=== PATIENT | male | born 1945 | race Caucasian/White ===

== ENCOUNTER 2016-07-25 12:55 | Emergency (ER) | payer BC, MEDICARE ==
[2016-07-25 15:51] VITALS: BP 121/66
[2016-07-25] MEDS ORDERED: Sodium Chloride 0.9% 10 ML Syringe FLUSH PRN (15:58)
--- NOTE | 2016-07-25 15:58 | EDM.PDOC ---
ED HPI GENERAL MEDICAL PROBLEM - General Chief Complaint: Skin Complaint Stated Complaint: NECK PAIN Time Seen by Provider: 07/25/16 15:58 Source of Information: Reports: Patient, RN, RN Notes Reviewed History Limitations: Reports: No Limitations - History of Present Illness INITIAL COMMENTS - FREE TEXT/NARRATIVE: Patient has a painful sore area on the back of his right occipital scalp getting progressively worse over the past 3 to 4 days. Denies fever or chills. He has a small amount of drainage on his pillow this morning. Posterior Neck Pain Score (Numeric/FACES): 7 - Related Data Allergies Allergy/AdvReac Type Severity Reaction Status Date / Time acetaminophen Allergy Nausea Verified 04/07/16 13:32 [From Tylenol-Codeine #3] codeine phosphate Allergy Nausea Verified 04/07/16 13:32 [From Tylenol-Codeine #3] lansoprazole [From Prevacid] Allergy Cannot Verified 04/07/16 13:32 Remember Home Meds: Home Meds metFORMIN [Glucophage XR] 1,000 mg PO BIDMEALS 12/01/15 [History] Tamsulosin [Flomax] 1 tab PO BEDTIME 12/03/15 [History] Lisinopril [Prinivil] 5 mg PO DAILY 01/27/16 [History] Loratadine 10 mg PO DAILY 04/07/16 [History] Omeprazole 20 mg PO DAILY 04/07/16 [History] Past Medical History HEENT History: Reports: Hard of Hearing, Impaired Vision Other HEENT History: wears glasses Cardiovascular History: Reports: Afib, Blood Clots/VTE/DVT, High Cholesterol, Hypertension Respiratory History: Reports: None Gastrointestinal History: Reports: Pancreatitis, PUD, Other (See Below) Other Gastrointestinal History: ALCOHOLIC LIVER DISEASE Genitourinary History: Reports: BPH, Retention, Urinary Other Genitourinary History: urinary frequency during the night Musculoskeletal History: Reports: None, Amputation, Fracture, Other (See Below) Other Musculoskeletal History: skull fracture repaired Neurological History: Reports: CVA Psychiatric History: Reports: Other (See Below) Other Psychiatric History: CHRONIC ALCOHOLISM Endocrine/Metabolic History: Reports: Diabetes, Type II Other Endocrine/Metabolic History: diabetic ulcer and cellulitis right great toe Hematologic History: Reports: Other (See Below) Other Hematologic History: MRSA Immunologic History: Reports: None Oncologic (Cancer) History: Reports: None Dermatologic History: Reports: Other (See Below) Other Dermatologic History: CYST REMOVAL - VOICE BOX - Infectious Disease History Infectious Disease History: Reports: Chicken Pox, Measles, Mumps - Past Surgical History Head Surgeries/Procedures: Reports: Craniotomy Cardiovascular Surgical History: Reports: Vascular Surgery Social & Family History - Family History Family Medical History: Noncontributory - Tobacco Use Smoking Status *Q: Never Smoker Years of Tobacco use: 15 Second Hand Smoke Exposure: No - Caffeine Use Caffeine Use: Reports: None - Alcohol Use Days Per Week of Alcohol Use: 7 Number of Drinks Per Day: 4 Total Drinks Per Week: 28 - Recreational Drug Use Recreational Drug Use: Yes Drug Use in Last 12 Months: Yes Recreational Drug Type: Reports: Marijuana/Hashish Other Recreational Drug Type: marjuana use about 4-5 times a week. - Living Situation & Occupation Living situation: Reports: Alone Occupation: Employed ED ROS GENERAL - Review of Systems Review Of Systems: ROS reveals no pertinent complaints other than HPI. ED EXAM, SKIN/RASH Exam: See Below Exam Limited By: No Limitations General Appearance: Alert, WD/WN, No Apparent Distress Eye Exam: Bilateral Eye: Normal Inspection Ears: Normal External Exam Nose: Normal Inspection Throat/Mouth: Normal Inspection Head: Atraumatic, Normocephalic Neck: Normal Inspection, Supple, Non-Tender, Full Range of Motion. No: Lymphadenopathy (L), Lymphadenopathy (R) Respiratory/Chest: No Respiratory Distress, Normal Breath Sounds Cardiovascular: Regular Rate, Rhythm Neurological: Alert, Oriented, CN II-XII Intact, Normal Cognition, Normal Gait, No Motor/Sensory Deficits Psychiatric: Anxious Skin: Erythema (6cm x 5cm erythematous flucutant and acutely tender area with central eschar and small amount of dried purulent yellow material.) Location, Skin: Head ED SKIN PROCEDURES - I&D Site: right occipital scalp Skin prep: Chlorhexidine (Hibiciens), Saline, Sterile Drape Local anesthesia: Lidocaine: 1% Plain Local Anesthetic Volume: Other (10cc) Area Incised With: 11 Blade Drainage: Purulent, Moderate Amount Probed to Break Up Loculations: Yes Packed With: 1/4 in. Iodoform Sterile Dressinx4(s) Complications: No Course - Vital Signs Last Recorded V/S: Last Vital Signs Temp 36.8 C 07/25/16 15:50 Pulse 68 07/25/16 15:50 Resp 18 06/03/17 15:50 BP 121/66 07/25/16 15:50 Pulse Ox 97 07/25/16 15:50 - Orders/Labs/Meds Orders: Active Orders 24 hr Category Date Time Status Peripheral IV Care [RC] . DIRECTED Care 07/25/16 15:58 Active Sodium Chloride 0.9% [Saline Flush] Med 07/25/16 15:58 Active 10 ml FLUSH ASDIRECTED PRN Peripheral IV Insertion Adult [OM.PC] Stat Oth 07/25/16 15:58 Ordered Medication Orders Sodium Chloride (Saline Flush) 10 ml FLUSH ASDIRECTED PRN PRN Reason: Keep Vein Open Last Admin: 07/25/16 16:19 Dose: 10 ml Labs: Laboratory Tests 07/25/16 07/25/16 Range/Units 16:18 16:18 WBC 14.0 H (5.0-10.0) 10^3/uL RBC 4.68 (4.6-6.2) 10^6/uL Hgb 14.9 (14.0-18.0) g/dL Hct 44.5 (40.0-54.0) % MCV 95.1 (80-100) fL MCH 31.8 (27.0-34.0) pg MCHC 33.5 (33.0-35.0) g/dL Plt Count 156 (150-450) 10^3/uL Neut % (Auto) 67.1 (42.2-75.2) % Lymph % (Auto) 17.0 L (20.5-50.1) % [place] % (Auto) 14.0 H (2-8) % Eos % (Auto) 1.3 (1.0-3.0) % Baso % (Auto) 0.6 (0.0-1.0) % C-Reactive Protein 3.1 H (0.0-1.3) mg/dL Meds: Medications Generic Name Dose Route Start Last Admin Trade Name Freq PRN Reason Stop Dose Admin Sodium Chloride 10 ml 07/25/16 15:58 07/25/16 16:19 Saline Flush FLUSH 10 ml ASDIRECTED PRN Administration Keep Vein Open Discontinued Medications Generic Name Dose Route Start Last Admin Trade Name Freq PRN Reason Stop Dose Admin Bacitracin 1 dose 07/25/16 16:04 07/25/16 16:19 Bacitracin Oint 1 Gm TOP 07/25/16 16:05 1 dose ONETIME ONE Administration Diphenhydramine HCl 12.5 mg 07/25/16 16:04 07/25/16 16:20 Benadryl IVPUSH 07/25/16 16:05 12.5 mg ONETIME ONE Administration Piperacillin Sod/Tazobactam 100 mls @ 200 mls/hr 07/25/16 16:01 07/25/16 16: 22 Sod 3.375 gm/ Sodium Chloride IV 07/25/16 16:30 200 mls/hr ONETIME ONE Administration Lidocaine HCl 30 ml 07/25/16 16:00 07/25/16 16:19 Xylocaine-Mpf 1% INJECT 07/25/16 16:01 30 ml ONETIME ONE Administration Lidocaine HCl 10 gm 07/25/16 16:00 07/25/16 16:13 Lidocaine 5% TOP 07/25/16 16:01 1 dose ONETIME ONE Administration Departure - Departure Time of Disposition: 17:21 Disposition: Home, Self-Care 01 Condition: good Clinical Impression: Scalp abscess, Furunculosis - Discharge Information Instructions: Abscess, Incision and Drainage, Care After Forms: ED Department Discharge Additional Instructions: RX: Cephalexin 500mg. RX: Clindamycin 300mg. RX: Bactroban ointment 2%. Change dressing twice daily or more frequently if needed. Follow up in clinic in 3 to [address] Busch for recheck. - My Orders Last 24 Hours: My Active Orders 07/25/16 15:58 Peripheral IV Care [RC] . DIRECTED Sodium Chloride 0.9% [Saline Flush] 10 ml FLUSH ASDIRECTED PRN Peripheral IV Insertion Adult [OM.PC] Stat - Assessment/Plan Last 24 Hours: My Active Orders 07/25/16 15:58 Peripheral IV Care [RC] . DIRECTED Sodium Chloride 0.9% [Saline Flush] 10 ml FLUSH ASDIRECTED PRN Peripheral IV Insertion Adult [OM.PC] Stat
[2016-07-25] MEDS ORDERED: Lidocaine 5% Oint 35.44 GM Tube TOP ONE (16:00)
[2016-07-25] MEDS ORDERED: Lidocaine 1% 30 ML SDV INJECT ONE (16:00)
[2016-07-25] MEDS ORDERED: Piperacillin/Tazobactam 3.375 GM in Sodium Chloride 0.9% 100 ML IV ONE (16:01)
[2016-07-25] MEDS ORDERED: Bacitracin Oint 1 GM U/D Packet TOP ONE (16:04)
[2016-07-25] MEDS ORDERED: diphenhydrAMINE 50 MG/ML SDV IVPUSH ONE (16:04)
== END 2016-07-25 17:42 | disposition home or self-care (01) ==
LOC: EEVIPCON 12:55 → DL.ED 12:55
DX: L02.821 Furuncle of head [any part, except face] (principal); L02.811 Cutaneous abscess of head [any part, except face]; I48.91 Unspecified atrial fibrillation; E78.00 Pure hypercholesterolemia, unspecified; I10 Essential (primary) hypertension; E11.9 Type 2 diabetes mellitus without complications; Z88.5 Allergy status to narcotic agent; Z79.84 Long term (current) use of oral hypoglycemic drugs; Z98.890 Other specified postprocedural states; Z79.899 Other long term (current) drug therapy
CPT/HCPCS: 10060; 36415; 85025; 86140; 87070; 87077; 87186; 96365; 96375; 99283; A9270; J1200; J2543; J7050

== ENCOUNTER 2016-07-31 14:08 | Inpatient (IN) | payer BC, MEDICARE ==
--- NOTE | 2016-07-31 15:47 | EDM.PDOC ---
[id number]: HAIR INFECTION NOT BETTER Time Seen by Provider: 07/31/16 15:52 Source of Information: Reports: Patient, RN, RN Notes Reviewed History Limitations: Reports: No Limitations - History of Present Illness INITIAL COMMENTS - FREE TEXT/NARRATIVE: Pt seen here a few days ago with infected furunculosis at the occipital scalp. He states that he didn't take the medicine like he was prescribed, and now it is worse. Denies fever or chills. Duration: Week(s): (1), Getting Worse Location: Reports: Head Quality: Reports: Ache Severity: Severe Improves with: Reports: None Worsens with: Reports: None Associated Symptoms: Reports: No Other Symptoms Neck Pain Score (Numeric/FACES): 10 - Related Data Allergies Allergy/AdvReac Type Severity Reaction Status Date / Time acetaminophen Allergy Nausea Verified 08/05/16 12:19 [From Tylenol-Codeine #3] codeine phosphate Allergy Nausea Verified 08/05/16 12:19 [From Tylenol-Codeine #3] lansoprazole [From Prevacid] Allergy Cannot Verified 08/05/16 12:19 Remember Home Meds: Home Meds metFORMIN [Glucophage XR] 1,000 mg PO BIDMEALS 12/01/15 [History] Tamsulosin [Flomax] 1 tab PO BEDTIME 12/03/15 [History] Lisinopril [Prinivil] 5 mg PO DAILY 01/27/16 [History] Metoprolol Tartrate 25 mg PO BID 07/31/16 [History] Mineral Oil/Petrolat,Wht/Water [Lubriderm Daily Moisture Lot] 1 applic TOP DAILY PRN 07/31/16 [History] Morphine 15 mg PO Q6H PRN #7 tablet 08/04/16 [Rx] Vancomycin [Vancocin] 1 gm IV Q24H #7 gm 08/04/16 [Rx] Past Medical History HEENT History: Reports: Hard of Hearing, Impaired Vision Other HEENT History: wears glasses Cardiovascular History: Reports: Afib, Blood Clots/VTE/DVT, High Cholesterol, Hypertension Respiratory History: Reports: None Gastrointestinal History: Reports: Pancreatitis, PUD, Other (See Below) Other Gastrointestinal History: ALCOHOLIC LIVER DISEASE Genitourinary History: Reports: BPH, Retention, Urinary Other Genitourinary History: urinary frequency during the night Musculoskeletal History: Reports: None, Amputation, Fracture, Other (See Below) Other Musculoskeletal History: skull fracture repaired Neurological History: Reports: CVA Psychiatric History: Reports: Other (See Below) Other Psychiatric History: CHRONIC ALCOHOLISM Endocrine/Metabolic History: Reports: Diabetes, Type II Other Endocrine/Metabolic History: diabetic ulcer and cellulitis right great toe Hematologic History: Reports: Other (See Below) Other Hematologic History: MRSA Immunologic History: Reports: None Oncologic (Cancer) History: Reports: None Dermatologic History: Reports: Other (See Below) Other Dermatologic History: CYST REMOVAL - VOICE BOX - Infectious Disease History Infectious Disease History: Reports: Chicken Pox, Measles, Mumps - Past Surgical History Head Surgeries/Procedures: Reports: Craniotomy Cardiovascular Surgical History: Reports: Vascular Surgery Social & Family History - Family History Family Medical History: Noncontributory - Tobacco Use Smoking Status *Q: Never Smoker Years of Tobacco use: 15 Second Hand Smoke Exposure: No - Caffeine Use Caffeine Use: Reports: None - Alcohol Use Days Per Week of Alcohol Use: 7 Number of Drinks Per Day: 4 Total Drinks Per Week: 28 - Recreational Drug Use Recreational Drug Use: Yes Drug Use in Last 12 Months: Yes Recreational Drug Type: Reports: Marijuana/Hashish Other Recreational Drug Type: marjuana use about 4-5 times a week. - Living Situation & Occupation Living situation: Reports: Alone Occupation: Employed ED ROS GENERAL - Review of Systems Review Of Systems: ROS reveals no pertinent complaints other than HPI. ED EXAM, SKIN/RASH Exam: See Below Exam Limited By: No Limitations General Appearance: Alert, WD/WN, No Apparent Distress Eye Exam: Bilateral Eye: Normal Inspection Ears: Normal External Exam, Normal Canal, Hearing Grossly Normal, Normal TMs Nose: Normal Inspection, Normal Mucosa, No Blood Throat/Mouth: Normal Inspection Head: Atraumatic, Other (occipital scalp w/4.5cm x 8cm tender, erythematous, swollen area with fluctuant surface and spontaneous thick yellow purulent drainage) Neck: Normal Inspection, Supple, Non-Tender, Full Range of Motion Respiratory/Chest: No Respiratory Distress, Lungs Clear, Normal Breath Sounds, No Accessory Muscle Use, Chest Non-Tender Cardiovascular: Regular Rate, Rhythm Back Exam: Normal Inspection Extremities: Normal Inspection Neurological: Alert, Oriented, CN II-XII Intact, Normal Cognition, Normal Gait, No Motor/Sensory Deficits Psychiatric: Anxious ED SKIN PROCEDURES - I&D Site: occipital scalp Skin Prep: Chlorhexidine (Hibiciens) Local Anesthesia: Lidocaine: 1% Plain Local Anesthetic Volume: Other (10cc) Area Incised With: 11 Blade Drainage: Purulent, Large Amount Probed to Break Up Loculations: Yes Packed With: 1/4 in. Iodoform Sterile Dressinx4(s) Complications: No Course - Vital Signs Last Recorded V/S: Last Vital Signs Temp 37.1 C 08/04/16 08:19 Pulse 62 08/04/16 08:25 Resp 20 08/04/16 08:19 BP 119/72 08/04/16 08:25 Pulse Ox 97 08/04/16 08:19 - Orders/Labs/Meds Labs: Laboratory Tests 07/31/16 07/31/16 07/31/16 Range/Units 16:45 16:45 16:45 WBC 10.6 H (5.0-10.0) 10^3/uL RBC 4.70 (4.6-6.2) 10^6/uL Hgb 14.8 (14.0-18.0) g/dL Hct 44.2 (40.0-54.0) % MCV 94.0 (80-100) fL MCH 31.5 (27.0-34.0) pg MCHC 33.5 (33.0-35.0) g/dL Plt Count 207 (150-450) 10^3/uL Neut % (Auto) 63.4 (42.2-75.2) % Lymph % (Auto) 18.5 L (20.5-50.1) % [place] % (Auto) 14.7 H (2-8) % Eos % (Auto) 2.8 (1.0-3.0) % Baso % (Auto) 0.6 (0.0-1.0) % Sodium 133 L (135-145) mmol/L Potassium 4.4 (3.6-5.0) mmol/L Chloride 100 L (101-111) mmol/L Carbon Dioxide 25.0 (21.0-31.0) mmol/L Anion Gap 12.4 BUN 33 H (7-18) mg/dL Creatinine 1.5 H (0.6-1.3) mg/dL Est Cr Clr Drug Dosing 60.93 mL/min Estimated GFR (MDRD) 47 BUN/Creatinine Ratio 22.00 Glucose 261 H (74-105) mg/dL Calcium 8.9 (8.4-10.2) mg/dl Total Bilirubin 0.8 (0.2-1.0) mg/dL AST 66 H (10-42) IU/L ALT 51 (10-60) IU/L Alkaline Phosphatase 437 H (42-121) IU/L C-Reactive Protein 4.7 H (0.0-1.3) mg/dL Total Protein 7.4 (6.7-8.2) g/dl Albumin 2.6 L (3.2-5.5) g/dl Globulin 4.8 Albumin/Globulin Ratio 0.54 Meds: Medications Discontinued Medications Generic Name Dose Route Start Last Admin Trade Name Freq PRN Reason Stop Dose Admin Calcium Carbonate/Glycine 500 mg 08/03/16 15:23 08/03/16 15:30 Tums PO 500 mg Q2H PRN Administration acid reflux Diphenhydramine HCl 25 mg 07/31/16 16:40 07/31/16 17:17 Benadryl IVPUSH 07/31/16 16:41 25 mg ONETIME ONE Administration Diphenhydramine HCl 25 mg 07/31/16 22:33 08/03/16 03:00 Benadryl PO 25 mg BEDTIME PRN Administration Insomnia Famotidine 20 mg 08/03/16 16:30 08/04/16 08:26 Pepcid PO 20 mg BID TARA Administration Heparin Sodium (Porcine) 5,000 units 08/02/16 21:00 08/04/16 12:25 Heparin Sodium SUBCUT Not Given Q8H [facility] Vancomycin HCl 1.5 gm/ Sodium 500 mls @ 334 mls/hr 07/31/16 16:40 07/31/16 17 :19 Chloride IV 07/31/16 18:09 334 mls/hr ONETIME ONE Administration Vancomycin HCl 1.5 gm/ Sodium 500 mls @ 334 mls/hr 08/01/16 06:00 08/02/16 18 :30 Chloride IV Not Given Q12H [facility] Vancomycin HCl 1.5 gm/ Sodium 500 mls @ 334 mls/hr 08/03/16 06:00 08/03/16 06 :38 Chloride IV Not Given DAILY@0600 [facility] Sodium Chloride 500 mls @ 100 mls/hr 08/03/16 10:15 08/03/16 13:02 Normal Saline IV 100 mls/hr ASDIRECTED TARA Administration Vancomycin HCl 1 gm/ Sodium 250 mls @ 166.667 mls/hr 08/03/16 18:00 08/04/16 12:07 Chloride IV 166.667 mls/hr Q24H TARA Administration Insulin Aspart 0 unit 08/01/16 08:00 08/04/16 12:24 Novolog SUBCUT 6 units TIDAC TARA Administration Protocol Lactulose 20 gm 08/03/16 07:49 Cephulac PO BID PRN Constipation Lidocaine HCl Confirm 07/31/16 15:59 07/31/16 17:14 Xylocaine-Mpf 1% Administered 07/31/16 16:00 Not Given Dose 30 ml .ROUTE .STK-MED ONE Lidocaine HCl 30 ml 07/31/16 17:01 07/31/16 17:00 Xylocaine-Mpf 1% INJECT 07/31/16 17:02 30 ml ONETIME ONE Administration Lisinopril 5 mg 08/01/16 09:00 08/03/16 09:15 Prinivil PO 5 mg DAILY TARA Administration Loratadine 10 mg 08/01/16 09:00 Claritin PO DAILY TARA Metoprolol Succinate 25 mg 08/01/16 09:00 08/04/16 08:25 Toprol Xl PO 25 mg DAILY TARA Administration Morphine Sulfate 2 mg 08/01/16 13:41 08/01/16 14:19 Morphine IVPUSH 08/01/16 13:42 2 mg ONETIME ONE Administration Morphine Sulfate 15 mg 08/01/16 15:47 08/04/16 09:40 Morphine PO 15 mg Q6H PRN Administration Pain Omeprazole 20 mg 08/01/16 06:00 Omeprazole PO ACBRK TARA Senna/Docusate Sodium 1 tab 08/03/16 09:00 08/04/16 08:26 Senna Plus PO 1 tab BID TARA Administration Sodium Chloride 10 ml 07/31/16 16:04 08/03/16 19:56 Saline Flush FLUSH 10 ml ASDIRECTED PRN Administration Keep Vein Open Tamsulosin HCl 0.4 mg 07/31/16 21:00 08/03/16 20:01 Flomax PO 0.4 mg BEDTIME TARA Administration Vancomycin HCl 1 dose 07/31/16 18:15 Pharmacy To Dose - Vancomycin .XX ASDIRECTED TARA Departure - Departure Time of Disposition: 17:07 (([place] [facility])) Disposition: Admitted As Inpatient 68 Condition: Serious Clinical Impression: Abscess or cellulitis of scalp, Infection of skin due to methicillin resistant Staphylococcus aureus (MRSA) - Discharge Information
[2016-07-31] MEDS ORDERED: Lidocaine 1% 30 ML SDV ONE (15:59)
[2016-07-31] MEDS ORDERED: Vancomycin 1.5 GM in Sodium Chloride 0.9% 500 ML IV ONE (16:40)
[2016-07-31] MEDS ORDERED: diphenhydrAMINE 50 MG/ML SDV IVPUSH ONE (16:40)
[2016-07-31] MEDS ORDERED: Lidocaine 1% 30 ML SDV INJECT ONE (17:01)
[2016-07-31] MEDS: Sodium Chloride 0.9% 10 ML Syringe FLUSH PRN (17:21)
--- NOTE | 2016-07-31 18:18 | PCM.HP ---
H&P History of Present Illness - General Date of Service: 07/31/16 Admit Problem/Dx: abscess in the upper posterior neck Developed a furunculus in the right upper neck area about 6 days prior to admission. Came into the emergency room, it was opened up and started on antibiotics. He doesn't know what antibiotics he was taking. He noticed that the swelling and the indurated area has enlarged. Came into the emergency room. Denies associated fever. No chest pain, no shortness of breath. Has a history of alcohol abuse but has quit drinking. Neck Pain Score (Numeric/FACES): 10 - Related Data Allergies/Adverse Reactions: Allergies Allergy/AdvReac Type Severity Reaction Status Date / Time acetaminophen Allergy Nausea Verified 07/31/16 16:56 [From Tylenol-Codeine #3] codeine phosphate Allergy Nausea Verified 07/31/16 16:56 [From Tylenol-Codeine #3] lansoprazole [From Prevacid] Allergy Cannot Verified 07/31/16 16:56 Remember Home Medications: Home Meds metFORMIN [Glucophage XR] 1,000 mg PO BIDMEALS 12/01/15 [History] Tamsulosin [Flomax] 1 tab PO BEDTIME 12/03/15 [History] Lisinopril [Prinivil] 5 mg PO DAILY 01/27/16 [History] Loratadine 10 mg PO DAILY 04/07/16 [History] Omeprazole 20 mg PO DAILY 04/07/16 [History] Past Medical History HEENT History: Reports: Hard of Hearing, Impaired Vision Other HEENT History: wears glasses Cardiovascular History: Reports: Afib, Blood Clots/VTE/DVT, High Cholesterol, Hypertension Respiratory History: Reports: None Gastrointestinal History: Reports: Pancreatitis, PUD, Other (See Below) Other Gastrointestinal History: ALCOHOLIC LIVER DISEASE Genitourinary History: Reports: BPH, Retention, Urinary Other Genitourinary History: urinary frequency during the night Musculoskeletal History: Reports: None, Amputation, Fracture, Other (See Below) Other Musculoskeletal History: skull fracture repaired Neurological History: Reports: CVA Psychiatric History: Reports: Other (See Below) Other Psychiatric History: CHRONIC ALCOHOLISM Endocrine/Metabolic History: Reports: Diabetes, Type II Other Endocrine/Metabolic History: diabetic ulcer and cellulitis right great toe Hematologic History: Reports: Other (See Below) Other Hematologic History: MRSA Immunologic History: Reports: None Oncologic (Cancer) History: Reports: None Dermatologic History: Reports: Other (See Below) Other Dermatologic History: CYST REMOVAL - VOICE BOX - Infectious Disease History Infectious Disease History: Reports: MRSA - Past Surgical History Head Surgeries/Procedures: Reports: Craniotomy Cardiovascular Surgical History: Reports: Vascular Surgery Social & Family History - Family History Family Medical History: Noncontributory - Tobacco Use Smoking Status *Q: Former Smoker Years of Tobacco use: 30 Used Tobacco, but Quit: Yes Month Tobacco Last Used: 30years ago Second Hand Smoke Exposure: No - Caffeine Use Caffeine Use: Reports: Coffee - Alcohol Use Days Per Week of Alcohol Use: 7 Number of Drinks Per Day: 4 Total Drinks Per Week: 28 - Recreational Drug Use Recreational Drug Use: Yes Drug Use in Last 12 Months: Yes Recreational Drug Type: Reports: Morphine Other Recreational Drug Type: marjuana use about 4-5 times a week. - Living Situation & Occupation Living situation: Reports: Alone Occupation: Employed H&P Review of Systems - Review of Systems: Review Of Systems: See Below General: Denies: Fever, Chills Cardiovascular: Denies: Chest Pain Gastrointestinal: Denies: Abdominal Pain Musculoskeletal: Reports: Neck Pain Skin: Reports: Other (posterior neck abscess has been enlarging, some drainage) Neurological: Denies: Confusion Exam - Exam Exam: See Below - Vital Signs Vital Signs: Last Vital Signs Temp 36.4 C 07/31/16 14:30 Pulse 60 07/31/16 14:30 Resp 14 07/31/16 14:30 BP 112/66 07/31/16 14:30 Pulse Ox 99 07/31/16 14:30 Weight: 113.398 kg - Exam General: Alert, Oriented Neck: Supple Lungs: Clear to Auscultation, Normal Respiratory Effort Cardiovascular: Regular Rate, Regular Rhythm Abdomen: Normal Bowel Sounds, Soft Skin: Other (posterior neck large abscess with incision and wound packing) - Patient Data Result Diagrams: 07/31/16 16:45 *Q Meaningful Use (ADM) - VTE *Q VTE Criteria *Q: - Stroke *Q Stroke Criteria *Q: - AMI *Q AMI Criteria *Q: - Problem List (1) Diabetes SNOMED Code(s): 27585810 ICD Code: E11.9 - TYPE 2 DIABETES MELLITUS WITHOUT COMPLICATIONS Status: Acute Current Visit: Yes (2) Abscess or cellulitis of scalp SNOMED Code(s): 39041213, 06014379 ICD Code: L03.811 - CELLULITIS OF HEAD [ANY PART, EXCEPT FACE] Status: Acute Current Visit: Yes (3) Furunculosis SNOMED Code(s): 125429838 ICD Code: L02.92 - FURUNCLE, UNSPECIFIED Status: Acute Current Visit: No (4) Hypertension SNOMED Code(s): 05841758 ICD Code: I10 - ESSENTIAL (PRIMARY) HYPERTENSION Status: Acute Current Visit: No Qualifiers: Hypertension type: unspecified secondary hypertension Qualified Code(s): I15.9 - Secondary hypertension, unspecified; I15 - Secondary hypertension Problem List Initiated/Reviewed/Updated: Yes Orders Last 24hrs: Active Orders 24 hr Category Date Time Status Glucose [Blood Glucose Check, Bedside] [RC] QIDACANDBED Care 07/31/16 18:13 Active BASIC METABOLIC PANEL,BMP [CHEM] AM Lab 08/01/16 05:15 Ordered CBC WITH AUTO DIFF [HEME] AM Lab 08/01/16 05:15 Ordered Insulin Aspart [NovoLOG] Med 08/01/16 08:00 Ordered See Protocol SUBCUT TIDAC Lisinopril [Prinivil] Med 08/01/16 09:00 Ordered 5 mg PO DAILY Loratadine [Claritin] Med 08/01/16 09:00 Ordered 10 mg PO DAILY Metoprolol Succinate [Toprol XL] Med 08/01/16 09:00 Ordered 25 mg PO DAILY Omeprazole Med 08/01/16 09:00 Ordered 20 mg PO DAILY Tamsulosin [Flomax] Med 07/31/16 21:00 Ordered DOSE mg PO BEDTIME Vancomycin Pharmacy to Dose [Pharmacy to Dose - Med 07/31/16 18:15 Ordered Vancomycin] 1 dose .XX ASDIRECTED Medication Orders Insulin Aspart (Novolog) 0 unit SUBCUT TIDAC TARA PRN Reason: Protocol Lisinopril (Prinivil) 5 mg PO DAILY TARA Loratadine (Claritin) 10 mg PO DAILY TARA Metoprolol Succinate (Toprol Xl) 25 mg PO DAILY TARA Omeprazole (Omeprazole) 20 mg PO DAILY TARA Sodium Chloride (Saline Flush) 10 ml FLUSH ASDIRECTED PRN PRN Reason: Keep Vein Open Last Admin: 07/31/16 17:21 Dose: 10 ml Tamsulosin HCl (Flomax) mg PO BEDTIME TARA Vancomycin HCl (Pharmacy To Dose - Vancomycin) 1 dose .XX ASDIRECTED [facility] Assessment/Plan Comment:: Developed a furunculus in the right upper neck area about 6 days prior to admission. Came into the emergency room, it was opened up and started on antibiotics. He doesn't know what antibiotics he was taking. He noticed that the swelling and the indurated area has enlarged. Came into the emergency room. Denies associated fever. No chest pain, no shortness of breath. Has a history of alcohol abuse but has quit drinking. Subcutaneous abscess Status post I&D. Wound care with packing and cover with 4 x 4 Culture grew MRSA The patient was treated with clindamycin as an outpatient but still did not have response. Will treat with IV vancomycin History of atrial fibrillation Now appears regular heart rate Will continue metoprolol he is off Coumadin Hypertension Treated with lisinopril, metoprolol Diabetes Hold metformin Use supplement and insulin as needed DVT prophylaxis with subcutaneous heparin
[2016-07-31] MEDS: Tamsulosin 0.4 MG Cap.ER PO SCH (21:19)
[2016-07-31] MEDS: diphenhydrAMINE 25 MG Tab PO PRN (22:43)
[2016-08-01] MEDS ORDERED: Omeprazole 20 MG Cap.CR PO SCH (06:00)
[2016-08-01] MEDS: Vancomycin 1.5 GM in Sodium Chloride 0.9% 500 ML IV SCH ×2 (06:31→17:56)
[2016-08-01] MEDS: Sodium Chloride 0.9% 10 ML Syringe FLUSH PRN ×2 (06:32→14:19)
[2016-08-01] MEDS: Insulin Aspart 100 Units/ML 3 ML Pen SUBCUT SCH ×3 (08:33→17:57)
[2016-08-01] MEDS: Metoprolol Succinate 25 MG Tab.ER PO SCH (08:35)
[2016-08-01] MEDS: Lisinopril 5 MG Tab PO SCH (08:35)
[2016-08-01] MEDS ORDERED: Loratadine 10 MG Tab PO SCH (09:00)
[2016-08-01] MEDS ORDERED: Morphine 2 MG/ML Syringe IVPUSH ONE (13:41)
--- NOTE | 2016-08-01 13:42 | PCM.PN ---
- General Info Date of Service: 08/01/16 Admission Dx/Problem (Free Text): Admitted with abscess in the upper posterior neck. He Developed a furunculus abscess from in grown hair in the upper posterior neck area about 6 days prior to admission. He was seen at the [facility] emergency room, it was opened up drained and started on antibiotics but did not improve much. He nnoticed that the swelling and the indurated area has enlarged,and Came into the emergency room got opened and drained, packed and admitted .Denies associated fever. No chest pain, no shortness of breath. Has a history of alcohol abuse but has quit drinking. Subjective Update: Pt today feels better and still has some pain at the incision site, No fever, chill, appetite is good Functional Status: Reports: pain controlled, tolerating diet, ambulating, urinating - Review of Systems General: Reports: No Symptoms, Appetite (good). Denies: Fever, Weakness, Malaise, Chills HEENT: Denies: headaches, sinus congestion, sore throat, visual changes Pulmonary: Denies: shortness of breath, cough, sputum, wheezing Cardiovascular: Denies: Chest Pain, Lightheadedness Gastrointestinal: Denies: Abdominal pain, Constipation, Diarrhea, Nausea, Vomiting Genitourinary: Denies: dysuria, frequency, burning, flank pain Musculoskeletal: Reports: neck pain. Denies: leg pain, joint pain Skin: Denies: cyanosis, jaundice, bruising, pruritis, rash Neurological: Denies: Dizziness Psychiatric: Denies: confusion, anxiety - Patient Data Vitals - most recent: Last Vital Signs Temp 36.8 C 08/01/16 12:54 Pulse 68 08/01/16 12:54 Resp 20 08/01/16 12:54 BP 126/69 08/01/16 12:54 Pulse Ox 98 08/01/16 12:54 Weight - most recent: 107.07 kg I&O - last 24 hours: Intake & Output 07/31/16 08/01/16 08/01/16 22:59 06:59 14:59 Intake Total 500 750 Balance 500 750 Lab Results last 24 hrs: Laboratory Results - last 24 hr 08/01/16 08/01/16 08/01/16 Range/Units 06:12 06:12 08:00 WBC 7.5 (5.0-10.0) 10^3/uL RBC 4.24 L (4.6-6.2) 10^6/uL Hgb 13.1 L (14.0-18.0) g/dL Hct 39.7 L (40.0-54.0) % MCV 93.6 (80-100) fL MCH 30.9 (27.0-34.0) pg MCHC 33.0 (33.0-35.0) g/dL Plt Count 177 (150-450) 10^3/uL Neut % (Auto) 55.3 (42.2-75.2) % Lymph % (Auto) 24.3 (20.5-50.1) % [place] % (Auto) 14.5 H (2-8) % Eos % (Auto) 4.8 H (1.0-3.0) % Baso % (Auto) 1.1 H (0.0-1.0) % Sodium 135 (135-145) mmol/L Potassium 4.3 (3.6-5.0) mmol/L Chloride 107 (101-111) mmol/L Carbon Dioxide 22.0 (21.0-31.0) mmol/L Anion Gap 10.3 BUN 29 H (7-18) mg/dL Creatinine 1.3 (0.6-1.3) mg/dL Est Cr Clr Drug Dosing 70.31 mL/min Estimated GFR (MDRD) 55 Glucose 218 H (74-105) mg/dL POC Glucose 218 H (70-105) mg/dl Calcium 8.5 (8.4-10.2) mg/dl 08/01/16 Range/Units 11:32 WBC (5.0-10.0) 10^3/uL RBC (4.6-6.2) 10^6/uL Hgb (14.0-18.0) g/dL Hct (40.0-54.0) % MCV (80-100) fL MCH (27.0-34.0) pg MCHC (33.0-35.0) g/dL Plt Count (150-450) 10^3/uL Neut % (Auto) (42.2-75.2) % Lymph % (Auto) (20.5-50.1) % [place] % (Auto) (2-8) % Eos % (Auto) (1.0-3.0) % Baso % (Auto) (0.0-1.0) % Sodium (135-145) mmol/L Potassium (3.6-5.0) mmol/L Chloride (101-111) mmol/L Carbon Dioxide (21.0-31.0) mmol/L Anion Gap BUN (7-18) mg/dL Creatinine (0.6-1.3) mg/dL Est Cr Clr Drug Dosing mL/min Estimated GFR (MDRD) Glucose (74-105) mg/dL POC Glucose 284 H (70-105) mg/dl Calcium (8.4-10.2) mg/dl Med Orders - Current: Current Medications Diphenhydramine HCl (Benadryl) 25 mg PO BEDTIME PRN PRN Reason: Insomnia Last Admin: 07/31/16 22:43 Dose: 25 mg Vancomycin HCl 1.5 gm/ Sodium (Chloride) 500 mls @ 334 mls/hr IV Q12H [facility] Last Admin: 08/01/16 06:31 Dose: 334 mls/hr Insulin Aspart (Novolog) 0 unit SUBCUT TIDAC [facility] PRN Reason: Protocol Last Admin: 08/01/16 13:30 Dose: 6 units Lisinopril (Prinivil) 5 mg PO DAILY [facility] Last Admin: 08/01/16 08:35 Dose: 5 mg Metoprolol Succinate (Toprol Xl) 25 mg PO DAILY [facility] Last Admin: 08/01/16 08:35 Dose: 25 mg Sodium Chloride (Saline Flush) 10 ml FLUSH ASDIRECTED PRN PRN Reason: Keep Vein Open Last Admin: 08/01/16 06:32 Dose: 10 ml Tamsulosin HCl (Flomax) 0.4 mg PO BEDTIME [facility] Last Admin: 07/31/16 21:19 Dose: 0.4 mg Vancomycin HCl (Pharmacy To Dose - Vancomycin) 1 dose .XX ASDIRECTED [facility] Discontinued Medications Diphenhydramine HCl (Benadryl) 25 mg IVPUSH ONETIME ONE Stop: 07/31/16 16:41 Last Admin: 07/31/16 17:17 Dose: 25 mg Vancomycin HCl 1.5 gm/ Sodium (Chloride) 500 mls @ 334 mls/hr IV ONETIME ONE Stop: 07/31/16 18:09 Last Admin: 07/31/16 17:19 Dose: 334 mls/hr Lidocaine HCl (Xylocaine-Mpf 1%) Confirm Administered Dose 30 ml .ROUTE .STK- MED ONE Stop: 07/31/16 16:00 Last Admin: 07/31/16 17:14 Dose: Not Given Lidocaine HCl (Xylocaine-Mpf 1%) 30 ml INJECT ONETIME ONE Stop: 07/31/16 17:02 Last Admin: 07/31/16 17:00 Dose: 30 ml Loratadine (Claritin) 10 mg PO DAILY [facility] Omeprazole (Omeprazole) 20 mg PO ACBRK [facility] - Exam Quality Assessment: DVT prophylaxis. No: supplemental oxygen, urine catheter General: alert, oriented, cooperative, no acute distress HEENT: Pupils equal, Mucous membr. moist/pink Neck: supple, no JVD, no thyromegaly, other (posterior neck abscess with packing and dressing) Lungs: Clear to auscultation, Normal respiratory effort. No: Crackles, Wheezing Cardiovascular: Regular Rate, Regular Rhythm, No Murmurs Abdomen: bowel sounds present, soft, no tenderness, no distension (Male) Exam: Deferred Back Exam: Normal Inspection, Full Range of Motion Extremities: no edema, no clubbing, no calf tenderness Skin: warm, dry, intact Neurological: no new focal deficit, normal gait, normal speech Psy/Mental Status: alert, normal affect, normal mood - Problem List & Annotations (1) Abscess or cellulitis of scalp SNOMED Code(s): 73216338, 80187350 Code(s): L03.811 - CELLULITIS OF HEAD [ANY PART, EXCEPT FACE] Status: Acute Current Visit: Yes (2) Diabetes SNOMED Code(s): 74539639 Code(s): E11.9 - TYPE 2 DIABETES MELLITUS WITHOUT COMPLICATIONS Status: Acute Current Visit: Yes (3) Furunculosis SNOMED Code(s): 513546142 Code(s): L02.92 - FURUNCLE, UNSPECIFIED Status: Acute Current Visit: No - Problem List Review Problem List Initiated/Reviewed/Updated: Yes - My Orders Last 24 Hours: My Active Orders 07/31/16 22:33 diphenhydrAMINE [Benadryl] 25 mg PO BEDTIME PRN 08/01/16 12:38 GRAM STAIN [RM] Routine - Plan Plan:: This is a 70 Y/O Pleasnat male with History of Diabetes ( Non -insulin dependent ), Hypertenson and BPH admitted after Drainage and packing of the posterior neck abscess. He Developed a furunculus in the posterior neck area about 6 days prior to admission. and had drained and given oral Abx, culture from abscess ( ) grew MRSA 1. Subcutaneous abscess ( Posterior Neck) - Status post I&D. -Continue Wound care with packing and cover with 4 x 4 daily -Continue Pain medication as needed 2. Culture from 07/25 of the wound abscess grew MRSA - The patient was treated with clindamycin as an outpatient but still did not have response. - Will treat with IV vancomycin and pharmacy will check the level 3. History of atrial fibrillation, rate is controlled - Will continue metoprolol - he is off Coumadin 4. Hypertension BP is controlled and will continue lisinopril at 5 mg daily and Metoprolol ( XL) at 25 mg daily Treated with lisinopril, metoprolol 5. Diabetes II ( Non Insulin Dependent) - Hold metformin -Use supplement and insulin as needed 6. DVT prophylaxis with subcutaneous heparin
[2016-08-01] MEDS: Morphine 15 MG Tab PO PRN (17:54)
[2016-08-01] MEDS: Tamsulosin 0.4 MG Cap.ER PO SCH (20:31)
[2016-08-02] MEDS: Morphine 15 MG Tab PO PRN ×3 (01:28→18:28)
[2016-08-02] MEDS: Sodium Chloride 0.9% 10 ML Syringe FLUSH PRN (05:30)
[2016-08-02] MEDS: Vancomycin 1.5 GM in Sodium Chloride 0.9% 500 ML IV SCH ×2 (05:31→18:30)
[2016-08-02] MEDS: Insulin Aspart 100 Units/ML 3 ML Pen SUBCUT SCH ×3 (08:29→17:40)
[2016-08-02] MEDS: Lisinopril 5 MG Tab PO SCH (08:29)
[2016-08-02] MEDS: Metoprolol Succinate 25 MG Tab.ER PO SCH (08:29)
--- NOTE | 2016-08-02 12:27 | PCM.PN ---
- General Info Date of Service: 08/02/16 Admission Dx/Problem (Free Text): Pt was admitted with abscess in the upper posterior neck. He Developed a furunculus abscess from in grown hair in the upper posterior neck area about 6 days prior to admission. He was seen at the [facility] emergency room, it was opened up drained and started on antibiotics but did not improve much. He nnoticed that the swelling and the indurated area has enlarged,and Came into the emergency room got opened and drained, packed and admitted .Denies associated fever. No chest pain, no shortness of breath. Subjective Update: Pt today feels better and still has some pain at the incision site, No fever, chill, appetite is good, slept well Functional Status: Reports: pain controlled, tolerating diet, ambulating, urinating - Review of Systems General: Reports: Appetite (good). Denies: Fever, Weakness, Chills HEENT: Denies: headaches, sinus congestion, sore throat, visual changes Pulmonary: Denies: shortness of breath, pleuritic chest pain, cough, sputum, wheezing Cardiovascular: Denies: Chest Pain, Palpitations, Dyspnea on Exertion, Lightheadedness Gastrointestinal: Denies: Abdominal pain, Diarrhea, Difficulty swallowing, Nausea, Vomiting Genitourinary: Denies: dysuria, frequency, burning, flank pain Musculoskeletal: Reports: neck pain. Denies: arm pain, hand pain, leg pain, foot pain Skin: Denies: jaundice, bruising, pruritis, rash Neurological: Denies: Dizziness, Tingling, Tremors, Trouble Speaking Psychiatric: Denies: depression, anxiety - Patient Data Vitals - most recent: Last Vital Signs Temp 36.7 C 08/02/16 08:20 Pulse 84 08/02/16 08:29 Resp 20 08/02/16 08:20 BP 124/62 08/02/16 08:29 Pulse Ox 99 08/02/16 08:20 Weight - most recent: 107.07 kg I&O - last 24 hours: Intake & Output 08/01/16 08/02/16 08/02/16 22:59 06:59 14:59 Intake Total 1593 900 543 Output Total 500 Balance 1093 900 543 Lab Results last 24 hrs: Laboratory Results - last 24 hr 08/01/16 08/01/16 08/02/16 Range/Units 16:52 22:21 07:52 POC Glucose 285 H 190 H 163 H (70-105) mg/dl 08/02/16 Range/Units 11:45 POC Glucose 248 H (70-105) mg/dl Jorge Results last 24 hrs: Microbiology 08/01/16 15:15 Gram Stain - Final Neck Med Orders - Current: Current Medications Diphenhydramine HCl (Benadryl) 25 mg PO BEDTIME PRN PRN Reason: Insomnia Last Admin: 07/31/16 22:43 Dose: 25 mg Vancomycin HCl 1.5 gm/ Sodium (Chloride) 500 mls @ 334 mls/hr IV Q12H [facility] Last Admin: 08/02/16 05:31 Dose: 334 mls/hr Insulin Aspart (Novolog) 0 unit SUBCUT TIDAC [facility] PRN Reason: Protocol Last Admin: 08/02/16 08:29 Dose: 2 units Lisinopril (Prinivil) 5 mg PO DAILY [facility] Last Admin: 08/02/16 08:29 Dose: 5 mg Metoprolol Succinate (Toprol Xl) 25 mg PO DAILY [facility] Last Admin: 08/02/16 08:29 Dose: 25 mg Morphine Sulfate (Morphine) 15 mg PO Q6H PRN PRN Reason: Pain Last Admin: 08/02/16 01:28 Dose: 15 mg Sodium Chloride (Saline Flush) 10 ml FLUSH ASDIRECTED PRN PRN Reason: Keep Vein Open Last Admin: 08/02/16 05:30 Dose: 10 ml Tamsulosin HCl (Flomax) 0.4 mg PO BEDTIME [facility] Last Admin: 08/01/16 20:31 Dose: 0.4 mg Vancomycin HCl (Pharmacy To Dose - Vancomycin) 1 dose .XX ASDIRECTED [facility] Discontinued Medications Diphenhydramine HCl (Benadryl) 25 mg IVPUSH ONETIME ONE Stop: 07/31/16 16:41 Last Admin: 07/31/16 17:17 Dose: 25 mg Vancomycin HCl 1.5 gm/ Sodium (Chloride) 500 mls @ 334 mls/hr IV ONETIME ONE Stop: 07/31/16 18:09 Last Admin: 07/31/16 17:19 Dose: 334 mls/hr Lidocaine HCl (Xylocaine-Mpf 1%) Confirm Administered Dose 30 ml .ROUTE .STK- MED ONE Stop: 07/31/16 16:00 Last Admin: 07/31/16 17:14 Dose: Not Given Lidocaine HCl (Xylocaine-Mpf 1%) 30 ml INJECT ONETIME ONE Stop: 07/31/16 17:02 Last Admin: 07/31/16 17:00 Dose: 30 ml Loratadine (Claritin) 10 mg PO DAILY [facility] Morphine Sulfate (Morphine) 2 mg IVPUSH ONETIME ONE Stop: 08/01/16 13:42 Last Admin: 08/01/16 14:19 Dose: 2 mg Omeprazole (Omeprazole) 20 mg PO ACBRK [facility] - Exam Quality Assessment: DVT prophylaxis. No: supplemental oxygen, urine catheter General: alert, oriented, cooperative, no acute distress HEENT: Pupils equal, EOMI, Mucous membr. moist/pink Neck: supple, no JVD, no thyromegaly. No: lymphadenopathy Lungs: Clear to auscultation, Normal respiratory effort. No: Crackles, Rales Cardiovascular: Regular Rate, Regular Rhythm, Murmurs Abdomen: bowel sounds present, soft, no tenderness, no distension (Male) Exam: Deferred Back Exam: Normal Inspection Extremities: no edema. No: no clubbing, no calf tenderness Skin: warm, dry, intact Wound/Incisions: healing well, dressing dry and intact, erythema improving Neurological: no new focal deficit, normal gait, normal speech Psy/Mental Status: alert, normal affect, normal mood - Problem List & Annotations (1) Abscess or cellulitis of scalp SNOMED Code(s): 19384084, 94558632 Code(s): L03.811 - CELLULITIS OF HEAD [ANY PART, EXCEPT FACE] Status: Acute Current Visit: Yes (2) Diabetes SNOMED Code(s): 36746768 Code(s): E11.9 - TYPE 2 DIABETES MELLITUS WITHOUT COMPLICATIONS Status: Acute Current Visit: Yes (3) Furunculosis SNOMED Code(s): 896478637 Code(s): L02.92 - FURUNCLE, UNSPECIFIED Status: Acute Current Visit: No - Problem List Review Problem List Initiated/Reviewed/Updated: Yes - My Orders Last 24 Hours: My Active Orders 08/01/16 15:47 Morphine 15 mg PO Q6H PRN 08/02/16 09:35 VANCOMYCIN TROUGH [CHEM] Routine - Plan Plan:: This is a 70 Y/O Pleasnat male with History of Diabetes ( Non -insulin dependent ), Hypertenson and BPH admitted after Drainage and packing of the posterior neck abscess. He Developed a furunculus in the posterior neck area about 6 days prior to admission. and had drained and given oral Abx, culture from abscess ( ) grew MRSA. His wound culture from 07/31/16 grew MRSA and susciptable to Vancomycin. Today I discussed with ID at [facility] Dr. Love and he recommended continuation IV vancomycin for atleast 1 week. He will be seen Via Telemedicine by Dr. Ribeiro either on Wednesday/Wednesday and will discuss with him the length of treatment. Time for Telemedicine not yet set up, need to call again tomorrow to set up a time for Telemedicine visit 1. Subcutaneous abscess ( Posterior Neck) - Status post I&D. -Continue Wound care with packing and cover with 4 x 4 daily -Continue Pain medication as needed -Continue IV vancomycin, will have his Trough level checked today and after that will decide the dosing schedule as out pt, if gets discharge tomorrow 2. Culture from 07/25 of the wound abscess grew MRSA and also from 07/31 grew MRSA - The patient was treated with clindamycin as an outpatient but still did not have response. - Will treat with IV vancomycin and pharmacy will check the level -Today I discussed with ID at [facility] Dr. Love and he recommended continuation IV vancomycin for atleast 1 week. He will be seen Via Telemedicine by Dr. Ribeiro either on Wednesday/Wednesday and will discuss with him the length of treatment. Time for Telemedicine not yet set up, need to call again tomorrow to set up a time for Telemedicine visit. I have discussed the issue with pt and is in agreement on staying in hospital until Wednesday 3. History of atrial fibrillation, rate is controlled - Will continue metoprolol - he is off Coumadin 4. Hypertension BP is controlled and will continue lisinopril at 5 mg daily and Metoprolol ( XL) at 25 mg daily Treated with lisinopril, metoprolol 5. Diabetes II ( Non Insulin Dependent) - Hold metformin -Use supplement and insulin as needed 6. DVT prophylaxis with subcutaneous heparin
[2016-08-02] MEDS: Heparin Sodium 5,000 Units/ML Vial SUBCUT SCH (20:25)
[2016-08-02] MEDS: Tamsulosin 0.4 MG Cap.ER PO SCH (20:25)
[2016-08-03] MEDS: diphenhydrAMINE 25 MG Tab PO PRN (03:00)
[2016-08-03] MEDS: Heparin Sodium 5,000 Units/ML Vial SUBCUT SCH ×3 (05:34→20:13)
[2016-08-03] MEDS ORDERED: Vancomycin 1.5 GM in Sodium Chloride 0.9% 500 ML IV SCH (06:00)
[2016-08-03] MEDS ORDERED: Lactulose Soln 10 GM/15 ML 30 ML UD Cup PO PRN (07:49)
[2016-08-03] MEDS: Insulin Aspart 100 Units/ML 3 ML Pen SUBCUT SCH ×3 (08:24→17:34)
[2016-08-03] MEDS: Lisinopril 5 MG Tab PO SCH (09:15)
[2016-08-03] MEDS: Metoprolol Succinate 25 MG Tab.ER PO SCH (09:16)
--- NOTE | 2016-08-03 10:13 | PCM.PN ---
- General Info Date of Service: 08/03/16 Admission Dx/Problem (Free Text): Pt was admitted with abscess in the upper posterior neck. He Developed a furunculus abscess from in grown hair in the upper posterior neck area about 6 days prior to admission. He was seen at the [facility] emergency room, it was opened up drained and started on antibiotics but did not improve much. He noticed that the swelling and the indurated area has enlarged and came into the emergency room. Subjective Update: Pt today feels still sick, and still has some pain at the incision site, No fever, chill, appetite is good, slept well. He does not feel comfortable with IV out pt. therapy. - Review of Systems General: Reports: Weakness. Denies: Fever Pulmonary: Denies: shortness of breath Cardiovascular: Denies: Chest Pain Gastrointestinal: Denies: Abdominal pain Genitourinary: Denies: dysuria - Patient Data Vitals - most recent: Last Vital Signs Temp 37.0 C 08/03/16 08:29 Pulse 70 08/03/16 09:16 Resp 20 08/03/16 08:29 BP 126/74 08/03/16 09:16 Pulse Ox 98 08/03/16 08:29 Weight - most recent: 107.07 kg Lab Results last 24 hrs: Laboratory Results - last 24 hr 08/02/16 08/02/16 08/02/16 Range/Units 11:45 16:38 17:40 Sodium (135-145) mmol/L Potassium (3.6-5.0) mmol/L Chloride (101-111) mmol/L Carbon Dioxide (21.0-31.0) mmol/L Anion Gap BUN (7-18) mg/dL Creatinine (0.6-1.3) mg/dL Est Cr Clr Drug Dosing mL/min Estimated GFR (MDRD) Glucose (74-105) mg/dL POC Glucose 248 H 296 H (70-105) mg/dl Calcium (8.4-10.2) mg/dl Vancomycin Trough 30.1 H (10-15) ug/ml 08/02/16 08/02/16 08/03/16 Range/Units 17:40 21:08 05:45 Sodium (135-145) mmol/L Potassium (3.6-5.0) mmol/L Chloride (101-111) mmol/L Carbon Dioxide (21.0-31.0) mmol/L Anion Gap BUN (7-18) mg/dL Creatinine 1.2 (0.6-1.3) mg/dL Est Cr Clr Drug Dosing 76.17 mL/min Estimated GFR (MDRD) > 60 Glucose (74-105) mg/dL POC Glucose 228 H (70-105) mg/dl Calcium (8.4-10.2) mg/dl Vancomycin Trough 24.3 H (10-15) ug/ml 08/03/16 08/03/16 Range/Units 05:45 08:00 Sodium 139 (135-145) mmol/L Potassium 5.1 H (3.6-5.0) mmol/L Chloride 106 (101-111) mmol/L Carbon Dioxide 25.0 (21.0-31.0) mmol/L Anion Gap 13.1 BUN 26 H (7-18) mg/dL Creatinine 1.3 (0.6-1.3) mg/dL Est Cr Clr Drug Dosing 70.31 mL/min Estimated GFR (MDRD) 55 Glucose 192 H (74-105) mg/dL POC Glucose 178 H (70-105) mg/dl Calcium 9.0 (8.4-10.2) mg/dl Vancomycin Trough (10-15) ug/ml Med Orders - Current: Current Medications Diphenhydramine HCl (Benadryl) 25 mg PO BEDTIME PRN PRN Reason: Insomnia Last Admin: 08/03/16 03:00 Dose: 25 mg Heparin Sodium (Porcine) (Heparin Sodium) 5,000 units SUBCUT Q8H [facility] Last Admin: 08/03/16 05:34 Dose: 5,000 units Vancomycin HCl 1.5 gm/ Sodium (Chloride) 500 mls @ 334 mls/hr IV DAILY@0600 [facility] Last Admin: 08/03/16 06:38 Dose: Not Given Insulin Aspart (Novolog) 0 unit SUBCUT TIDAC [facility] PRN Reason: Protocol Last Admin: 08/03/16 08:24 Dose: 2 units Lactulose (Cephulac) 20 gm PO BID PRN PRN Reason: Constipation Metoprolol Succinate (Toprol Xl) 25 mg PO DAILY [facility] Last Admin: 08/03/16 09:16 Dose: 25 mg Morphine Sulfate (Morphine) 15 mg PO Q6H PRN PRN Reason: Pain Last Admin: 08/02/16 18:28 Dose: 15 mg Senna/Docusate Sodium (Senna Plus) 1 tab PO BID [facility] Last Admin: 08/03/16 09:16 Dose: 1 tab Sodium Chloride (Saline Flush) 10 ml FLUSH ASDIRECTED PRN PRN Reason: Keep Vein Open Last Admin: 08/02/16 05:30 Dose: 10 ml Tamsulosin HCl (Flomax) 0.4 mg PO BEDTIME [facility] Last Admin: 08/02/16 20:25 Dose: 0.4 mg Vancomycin HCl (Pharmacy To Dose - Vancomycin) 1 dose .XX ASDIRECTED [facility] Discontinued Medications Diphenhydramine HCl (Benadryl) 25 mg IVPUSH ONETIME ONE Stop: 07/31/16 16:41 Last Admin: 07/31/16 17:17 Dose: 25 mg Vancomycin HCl 1.5 gm/ Sodium (Chloride) 500 mls @ 334 mls/hr IV ONETIME ONE Stop: 07/31/16 18:09 Last Admin: 07/31/16 17:19 Dose: 334 mls/hr Vancomycin HCl 1.5 gm/ Sodium (Chloride) 500 mls @ 334 mls/hr IV Q12H [facility] Last Admin: 08/02/16 18:30 Dose: Not Given Lidocaine HCl (Xylocaine-Mpf 1%) Confirm Administered Dose 30 ml .ROUTE .STK- MED ONE Stop: 07/31/16 16:00 Last Admin: 07/31/16 17:14 Dose: Not Given Lidocaine HCl (Xylocaine-Mpf 1%) 30 ml INJECT ONETIME ONE Stop: 07/31/16 17:02 Last Admin: 07/31/16 17:00 Dose: 30 ml Lisinopril (Prinivil) 5 mg PO DAILY [facility] Last Admin: 08/03/16 09:15 Dose: 5 mg Loratadine (Claritin) 10 mg PO DAILY [facility] Morphine Sulfate (Morphine) 2 mg IVPUSH ONETIME ONE Stop: 08/01/16 13:42 Last Admin: 08/01/16 14:19 Dose: 2 mg Omeprazole (Omeprazole) 20 mg PO ACBRK [facility] - Exam General: alert, oriented Neck: supple Lungs: Clear to auscultation, Normal respiratory effort Cardiovascular: Regular Rate, Regular Rhythm Extremities: no edema Skin: warm, other (2 posterior upper neck abscess with no more erythema but opening and packing) Neurological: no new focal deficit Psy/Mental Status: alert, normal affect, normal mood - Problem List & Annotations (1) Diabetes SNOMED Code(s): 11941872 Code(s): E11.9 - TYPE 2 DIABETES MELLITUS WITHOUT COMPLICATIONS Status: Acute Current Visit: Yes (2) Abscess or cellulitis of scalp SNOMED Code(s): 91582830, 54923325 Code(s): L03.811 - CELLULITIS OF HEAD [ANY PART, EXCEPT FACE] Status: Acute Current Visit: Yes (3) Furunculosis SNOMED Code(s): 540266679 Code(s): L02.92 - FURUNCLE, UNSPECIFIED Status: Acute Current Visit: No (4) Hypertension SNOMED Code(s): 78122745 Code(s): I10 - ESSENTIAL (PRIMARY) HYPERTENSION Status: Acute Current Visit: No Qualifiers: Hypertension type: unspecified secondary hypertension Qualified Code(s): I15.9 - Secondary hypertension, unspecified; I15 - Secondary hypertension - Problem List Review Problem List Initiated/Reviewed/Updated: Yes - My Orders Last 24 Hours: My Active Orders 08/03/16 07:49 Lactulose [Cephulac] 20 gm PO BID PRN 08/03/16 09:00 Docusate Sodium/Sennosides [Senna Plus] 1 tab PO BID 08/03/16 10:15 Sodium Chloride 0.9% [Normal Saline] 500 ml IV ASDIRECTED - Plan Plan:: This is a 70 Y/O Pleasnat male with History of Diabetes ( Non -insulin dependent ), Hypertenson and BPH admitted after Drainage and packing of the posterior neck abscess. He Developed a furunculus in the posterior neck area about 6 days prior to admission. and had drained and given oral Abx (Clindamycin), culture from abscess ( 07/25) grew MRSA. His wound culture from 07/31/16 grew MRSA and susciptable to Vancomycin. 1. Subcutaneous abscess ( Posterior Neck) - Status post I&D. -Continue Wound care with packing and cover with 4 x 4 daily -Continue Pain medication (PO morphine ) as needed -Continue IV vancomycin, - plan for out pt IV Abx - will set up appt with ID for this week 2. Hyperkalemia mild will give 500 c NS fluid stop ZAIN recheck in AM 3. History of atrial fibrillation, rate is controlled - Will continue metoprolol - he is off Coumadin 4. Hypertension BP is controlled Treat with metoprolol stop Lisinopril re: hyperkalemia 5. Diabetes II ( Non Insulin Dependent) - Hold metformin -Use supplement and insulin as needed 6. DVT prophylaxis with subcutaneous heparin
[2016-08-03] MEDS ORDERED: Sodium Chloride 0.9% 500 ML IV SCH (10:15)
[2016-08-03] MEDS: Sodium Chloride 0.9% 10 ML Syringe FLUSH PRN ×2 (13:02→19:56)
[2016-08-03] MEDS: Morphine 15 MG Tab PO PRN ×2 (13:19→20:08)
[2016-08-03] MEDS ORDERED: Calcium Carbonate 500 MG Tab.Chew PO PRN (15:23)
[2016-08-03] MEDS: Famotidine 20 MG Tab PO SCH ×2 (17:09→20:02)
[2016-08-03] MEDS: Tamsulosin 0.4 MG Cap.ER PO SCH (20:01)
[2016-08-04] MEDS: Heparin Sodium 5,000 Units/ML Vial SUBCUT SCH ×2 (05:15→12:25)
[2016-08-04 08:20] VITALS: BP 119/72
[2016-08-04] MEDS: Metoprolol Succinate 25 MG Tab.ER PO SCH (08:25)
[2016-08-04] MEDS: Insulin Aspart 100 Units/ML 3 ML Pen SUBCUT SCH ×2 (08:26→12:24)
[2016-08-04] MEDS: Famotidine 20 MG Tab PO SCH (08:26)
[2016-08-04] MEDS: Morphine 15 MG Tab PO PRN (09:40)
--- NOTE | 2016-08-04 10:08 | PCM.DCSUM1 ---
Discharge Summary - Hospital Course Free Text/Narrative:: This is a 70 Y/O Pleasnat male with History of Diabetes ( Non -insulin dependent ), Hypertenson and BPH admitted after Drainage and packing of the posterior neck abscess. He Developed a furunculus in the posterior neck area about 6 days prior to admission. and had drained and given oral Abx (Clindamycin), culture from abscess ( 07/25) grew MRSA. His wound culture from 07/31/16 grew MRSA and susciptable to Vancomycin. 1. Subcutaneous abscess ( Posterior Neck) - Status post I&D. -Continue Wound care with packing and cover with 4 x 4 daily -Continue Pain medication (PO morphine ) as needed -Continue IV vancomycin as out pt - follow up appt with ID on The patient with coming to special procedures for daily IV vancomycin and wound care. 2. History of atrial fibrillation, rate is controlled - Will continue metoprolol - he is off Coumadin 3. Hypertension BP is controlled Treat with metoprolol, Lisinopril 1 day the patient was noted to have borderline elevated potassium at 5.1. ( Normal is up to 5.0) With IV hydration and the potassium normalized. At this point I think the patient can continue with the lisinopril but considre to recheck electrolyte panel along with monitoring of renal function and vancomycin levels. 5. Diabetes II ( Non Insulin Dependent) - resume metformin - Discharge Data Discharge Date: 08/04/16 Discharge Disposition: Home, Self-Care 01 Condition: Good - Discharge Diagnosis/Problem(s) (1) Diabetes SNOMED Code(s): 49485096 ICD Code: E11.9 - TYPE 2 DIABETES MELLITUS WITHOUT COMPLICATIONS Status: Acute Current Visit: Yes (2) Abscess or cellulitis of scalp SNOMED Code(s): 50017334, 54826489 ICD Code: L03.811 - CELLULITIS OF HEAD [ANY PART, EXCEPT FACE] Status: Acute Current Visit: Yes (3) Furunculosis SNOMED Code(s): 573286688 ICD Code: L02.92 - FURUNCLE, UNSPECIFIED Status: Acute Current Visit: No (4) Hypertension SNOMED Code(s): 31992865 ICD Code: I10 - ESSENTIAL (PRIMARY) HYPERTENSION Status: Acute Current Visit: No Qualifiers: Hypertension type: unspecified secondary hypertension Qualified Code(s): I15.9 - Secondary hypertension, unspecified; I15 - Secondary hypertension - Patient Instructions Diet: Heart Healthy Diet Activity: As Tolerated - Discharge Plan Prescriptions/Med Rec: Morphine 15 mg PO Q6H PRN #7 tablet PRN Reason: Pain Vancomycin [Vancocin] 1 gm IV Q24H #7 gm Home Medications: Home Meds metFORMIN [Glucophage XR] 1,000 mg PO BIDMEALS 12/01/15 [History] Tamsulosin [Flomax] 1 tab PO BEDTIME 12/03/15 [History] Lisinopril [Prinivil] 5 mg PO DAILY 01/27/16 [History] Metoprolol Tartrate 25 mg PO BID 07/31/16 [History] Mineral Oil/Petrolat,Wht/Water [Lubriderm Daily Moisture Lot] 1 applic TOP DAILY PRN 07/31/16 [History] Morphine 15 mg PO Q6H PRN #7 tablet 08/04/16 [Rx] Vancomycin [Vancocin] 1 gm IV Q24H #7 gm 08/04/16 [Rx] Patient Handouts: Abscess, Cellulitis, Adult, Contact Precautions, [id number] , MRSA Infection, Adult, MRSA FAQs - GAY Referrals: PCP,None [Ordering Only Provider] - (in 2-3 days) - Discharge Summary/Plan Comment DC Time >30 min.: No - General Info Date of Service: 08/04/16 Subjective Update: Pt today feels OK, still has some pain at the incision site mostly at night, No fever, no chills, appetite is good, slept well. - Review of Systems General: Denies: Fever, Weakness Pulmonary: Denies: shortness of breath Cardiovascular: Denies: Chest Pain Skin: Reports: other (Mild drainage from the posterior abscess sites) Psychiatric: Denies: confusion - Patient Data Vitals - Most Recent: Last Vital Signs Temp 37.1 C 08/04/16 08:19 Pulse 62 08/04/16 08:25 Resp 20 08/04/16 08:19 BP 119/72 08/04/16 08:25 Pulse Ox 97 08/04/16 08:19 Weight - Most Recent: 107.07 kg I&O - Last 24 hours: Intake & Output 08/03/16 08/04/16 08/04/16 22:59 06:59 14:59 Intake Total 2620 600 360 Output Total 1300 Balance 1320 600 360 Lab Results - Last 24 hrs: Laboratory Results - last 24 hr 08/03/16 08/03/16 08/03/16 Range/Units 11:01 17:09 21:01 Sodium (135-145) mmol/L Potassium (3.6-5.0) mmol/L Chloride (101-111) mmol/L Carbon Dioxide (21.0-31.0) mmol/L Anion Gap BUN (7-18) mg/dL Creatinine (0.6-1.3) mg/dL Est Cr Clr Drug Dosing mL/min Estimated GFR (MDRD) Glucose (74-105) mg/dL POC Glucose 235 H 227 H 231 H (70-105) mg/dl Calcium (8.4-10.2) mg/dl 08/04/16 08/04/16 Range/Units 06:18 07:50 Sodium 139 (135-145) mmol/L Potassium 4.5 (3.6-5.0) mmol/L Chloride 108 (101-111) mmol/L Carbon Dioxide 22.0 (21.0-31.0) mmol/L Anion Gap 13.5 BUN 23 H (7-18) mg/dL Creatinine 1.3 (0.6-1.3) mg/dL Est Cr Clr Drug Dosing 70.31 mL/min Estimated GFR (MDRD) 55 Glucose 187 H (74-105) mg/dL POC Glucose 196 H (70-105) mg/dl Calcium 8.7 (8.4-10.2) mg/dl Med Orders - Current: Current Medications Calcium Carbonate/Glycine (Tums) 500 mg PO Q2H PRN PRN Reason: acid reflux Last Admin: 08/03/16 15:30 Dose: 500 mg Diphenhydramine HCl (Benadryl) 25 mg PO BEDTIME PRN PRN Reason: Insomnia Last Admin: 08/03/16 03:00 Dose: 25 mg Famotidine (Pepcid) 20 mg PO BID TARA Last Admin: 08/04/16 08:26 Dose: 20 mg Heparin Sodium (Porcine) (Heparin Sodium) 5,000 units SUBCUT Q8H TARA Last Admin: 08/04/16 05:15 Dose: 5,000 units Sodium Chloride (Normal Saline) 500 mls @ 100 mls/hr IV ASDIRECTED [facility] Last Admin: 08/03/16 13:02 Dose: 100 mls/hr Vancomycin HCl 1 gm/ Sodium (Chloride) 250 mls @ 166.667 mls/hr IV Q24H [facility] Last Admin: 08/03/16 18:12 Dose: 166.667 mls/hr Insulin Aspart (Novolog) 0 unit SUBCUT TIDAC TARA PRN Reason: Protocol Last Admin: 08/04/16 08:26 Dose: 2 units Lactulose (Cephulac) 20 gm PO BID PRN PRN Reason: Constipation Metoprolol Succinate (Toprol Xl) 25 mg PO DAILY [facility] Last Admin: 08/04/16 08:25 Dose: 25 mg Morphine Sulfate (Morphine) 15 mg PO Q6H PRN PRN Reason: Pain Last Admin: 08/04/16 09:40 Dose: 15 mg Senna/Docusate Sodium (Senna Plus) 1 tab PO BID [facility] Last Admin: 08/04/16 08:26 Dose: 1 tab Sodium Chloride (Saline Flush) 10 ml FLUSH ASDIRECTED PRN PRN Reason: Keep Vein Open Last Admin: 08/03/16 19:56 Dose: 10 ml Tamsulosin HCl (Flomax) 0.4 mg PO BEDTIME [facility] Last Admin: 08/03/16 20:01 Dose: 0.4 mg Vancomycin HCl (Pharmacy To Dose - Vancomycin) 1 dose .XX ASDIRECTED [facility] Discontinued Medications Diphenhydramine HCl (Benadryl) 25 mg IVPUSH ONETIME ONE Stop: 07/31/16 16:41 Last Admin: 07/31/16 17:17 Dose: 25 mg Vancomycin HCl 1.5 gm/ Sodium (Chloride) 500 mls @ 334 mls/hr IV ONETIME ONE Stop: 07/31/16 18:09 Last Admin: 07/31/16 17:19 Dose: 334 mls/hr Vancomycin HCl 1.5 gm/ Sodium (Chloride) 500 mls @ 334 mls/hr IV Q12H [facility] Last Admin: 08/02/16 18:30 Dose: Not Given Vancomycin HCl 1.5 gm/ Sodium (Chloride) 500 mls @ 334 mls/hr IV DAILY@0600 [facility] Last Admin: 08/03/16 06:38 Dose: Not Given Lidocaine HCl (Xylocaine-Mpf 1%) Confirm Administered Dose 30 ml .ROUTE .STK- MED ONE Stop: 07/31/16 16:00 Last Admin: 07/31/16 17:14 Dose: Not Given Lidocaine HCl (Xylocaine-Mpf 1%) 30 ml INJECT ONETIME ONE Stop: 07/31/16 17:02 Last Admin: 07/31/16 17:00 Dose: 30 ml Lisinopril (Prinivil) 5 mg PO DAILY TARA Last Admin: 08/03/16 09:15 Dose: 5 mg Loratadine (Claritin) 10 mg PO DAILY TARA Morphine Sulfate (Morphine) 2 mg IVPUSH ONETIME ONE Stop: 08/01/16 13:42 Last Admin: 08/01/16 14:19 Dose: 2 mg Omeprazole (Omeprazole) 20 mg PO ACBRK TARA - Exam General: Reports: alert, oriented Neck: Reports: supple Lungs: Reports: Clear to auscultation, Normal respiratory effort Cardiovascular: Reports: Regular Rate, Regular Rhythm Skin: Reports: other (posterior upper neck abscess) Neurological: Reports: no new focal deficit Psy/Mental Status: Reports: alert, normal affect, normal mood *Q Meaningful Use (DIS) - VTE *Q VTE Criteria *Q: - Stroke *Q Stroke Criteria *Q: - AMI *Q AMI Criteria *Q:
== END 2016-08-04 14:10 | disposition home or self-care (01) | DRG 383 ==
LOC: DL.ED 14:08 → DL.MS 17:00
PROVIDERS: ADMIT Internal Medicine; ATTEND Internal Medicine
DX: L02.12 Furuncle of neck (principal); B95.62 Methicillin resistant Staphylococcus aureus infection as the cause of diseases classified elsewhere; E11.9 Type 2 diabetes mellitus without complications; I10 Essential (primary) hypertension; N40.0 Benign prostatic hyperplasia without lower urinary tract symptoms; Z79.84 Long term (current) use of oral hypoglycemic drugs; Z87.891 Personal history of nicotine dependence; E87.5 Hyperkalemia; I48.91 Unspecified atrial fibrillation
CPT/HCPCS: 36415; 80048; 80053; 80202; 82565; 82962; 85025; 86140; 87040; 87070; 87077; 87186; 87205; 99284; A9270-GY; J1200; J1644; J1815-GY; J2270; J3370; J7030; J7040; J7050

== ENCOUNTER 2016-10-09 11:07 | Inpatient (IN) | payer BC, MEDICARE ==
[2016-10-09] MEDS ORDERED: Sodium Chloride 0.9% 10 ML Syringe FLUSH PRN (12:15)
[2016-10-09] MEDS ORDERED: Insulin Aspart 100 Units/ML 3 ML Pen SUBCUT ONE ×2 (12:18→14:49)
[2016-10-09] MEDS: Sodium Chloride 0.9% 1,000 ML IV SCH ×2 (13:20→17:53)
[2016-10-09] MEDS ORDERED: Insulin Detemir 100 Units/ML 3 ML Pen SUBCUT ONE (14:49)
--- NOTE | 2016-10-09 15:27 | PCM.HP ---
[id number] Diagnosis/Problem Admission Diagnosis/Problem Hyperglycemia Source of Information: Patient History Limitations: Reports: No Limitations - History of Present Illness Initial Comments - Free Text/Narative: Patient is a 70 year old male is being admitted because of hyperglycemia. 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 went to clinic to see Medical home and sugars were high as well has had a borderline blood pressure reading. no syncope, no chest pain nor SOB. patient has a diagnosis of diabetes. Used to see PCP in the past who is now retired, lost a lot of weight and was taken off some of his meds. Has not seek any medical consult for around 3 years until recently. seen in the clinic, was on Metformin 1000mg and was decreased in dose due to renal insufficiency. he was then started on Amaryl 1mg. patient reports that he has been taking his medications and trying to adhere to a diabetic diet. no nausea, no vomiting nor abdominal pain. this morning though, he had burrito from [employer] for breakfast. during evaluation inpatient, was noted to have an ulcerated wound on the plantar aspect of the right foot. 6 months ago, he was moving in to a new hours , he wore a footwear apparently had a hole beneath the great toe and later on just noticed the blood is dripping from it. seen by podiatry in [facility]. has been applying topical antibiotic on the area and reports that it has been improving. he denies any pain. no fever nor swelling on the leg. - Related Data Allergies/Adverse Reactions: Allergies Allergy/AdvReac Type Severity Reaction Status Date / Time acetaminophen Allergy Nausea Verified 10/09/16 12:11 [From Tylenol-Codeine #3] codeine phosphate Allergy Nausea Verified 10/09/16 12:11 [From Tylenol-Codeine #3] lansoprazole [From Prevacid] Allergy Cannot Verified 10/09/16 12:11 Remember Home Medications: Home Meds metFORMIN [Glucophage XR] 500 mg PO DAILY 12/01/15 [History] Tamsulosin [Flomax] 1 tab PO BEDTIME 12/03/15 [History] Lisinopril [Prinivil] 5 mg PO DAILY 01/27/16 [History] Metoprolol Tartrate 25 mg PO BID 07/31/16 [History] Glimepiride [Amaryl] 1 mg PO WITHBREAKFAST 10/09/16 [History] Past Medical History HEENT History: Reports: Hard of Hearing, Impaired Vision Other HEENT History: wears glasses Cardiovascular History: Reports: Afib, Hypertension Respiratory History: Reports: None Gastrointestinal History: Reports: Pancreatitis, PUD, Other (See Below) Other Gastrointestinal History: ALCOHOLIC LIVER DISEASE. 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 Fracture to skull Neurological History: Reports: CVA Psychiatric History: Reports: Other (See Below) Other Psychiatric History: CHRONIC ALCOHOLISM Endocrine/Metabolic History: Reports: Diabetes, Type II Other Endocrine/Metabolic History: diabetic ulcer and cellulitis right great toe Hematologic History: Reports: Other (See Below) Other Hematologic History: MRSA Immunologic History: Reports: None Oncologic (Cancer) History: Reports: None Dermatologic History: Reports: Other (See Below) Other Dermatologic History: CYST REMOVAL - VOICE BOX - Infectious Disease History Infectious Disease History: Reports: MRSA Other Infectious Disease History: HX of MRSA - Past Surgical History Head Surgeries/Procedures: Reports: Craniotomy Social & Family History - Family History Family Medical History: Noncontributory Neurological: Reports: Alzheimers Disease Oncologic: Reports: Other (See Below) Other Oncologic Family History: Father from cancer in bile ducts. - Tobacco Use Smoking Status *Q: Former Smoker Years of Tobacco use: 15 Packs/Tins Daily: 1.5 Used Tobacco, but Quit: Yes Month Tobacco Last Used: unknown Tobacco Use Comment: Quit smoking approximately 25 years ago. Second Hand Smoke Exposure: No - Caffeine Use Caffeine Use: Reports: None - Alcohol Use Days Per Week of Alcohol Use: 7 Number of Drinks Per Day: 6 Total Drinks Per Week: 42 - Recreational Drug Use Recreational Drug Use: Yes Drug Use in Last 12 Months: Yes Recreational Drug Type: Reports: Marijuana/Hashish Other Recreational Drug Type: "couple times a week" Recreational Drug Use Frequency: Weekly Recreational Drug Last Use: "about four days ago" - Living Situation & Occupation Living situation: Reports: Alone Occupation: Employed [employer] Review of Systems - Review of Systems: Review Of Systems: See Below General: Reports: Weakness HEENT: Reports: No Symptoms Pulmonary: Reports: No Symptoms Cardiovascular: Reports: No Symptoms Gastrointestinal: Reports: No Symptoms Musculoskeletal: Reports: No Symptoms Skin: Reports: Other (wound beneath great to on the right foot) Psychiatric: Reports: No Symptoms Neurological: Reports: No Symptoms Hematologic/Lymphatic: Reports: No Symptoms Exam - Exam Exam: See Below - Vital Signs Vital Signs: Last Vital Signs Temp 36.7 C 10/09/16 15:12 Pulse 94 10/09/16 15:12 Resp 20 10/09/16 15:12 BP 122/66 10/09/16 15:12 Pulse Ox 97 10/09/16 15:12 Weight: 102.228 kg - Exam General: Alert, Oriented HEENT: Conjunctiva Clear, EACs Clear, EOMI, Hearing Intact Neck: Supple, Trachea Midline Lungs: Clear to Auscultation, Normal Respiratory Effort Cardiovascular: Regular Rate, Regular Rhythm, Normal S1, Normal S2 GI/Abdominal Exam: Normal Bowel Sounds, Non-Tender Back Exam: Normal Inspection Extremities: Normal Capillary Refill Peripheral Pulses: 2+: Dorsalis Pedis (L), Dorsalis Pedis (R) Skin: Other (dried superficial ulceration on the plantar aspect great toe right foot no tenderness nor fluctuance; surrounding calloused skin) Neuro Extensive - Mental Status: Alert, Oriented x3 Neuro Extensive - Motor, Sensory, Reflexes: CN II-XII Intact, Normal Gait - Patient Data Lab Results Last 24 hrs: Laboratory Results - last 24 hr 10/09/16 10/09/16 10/09/16 Range/Units 11:35 12:31 12:31 WBC 9.5 (5.0-10.0) 10^3/uL RBC 4.12 L (4.6-6.2) 10^6/uL Hgb 12.7 L (14.0-18.0) g/dL Hct 37.6 L (40.0-54.0) % MCV 91.3 (80-100) fL MCH 30.8 (27.0-34.0) pg MCHC 33.8 (33.0-35.0) g/dL Plt Count 131 L (150-450) 10^3/uL Neut % (Auto) 69.0 (42.2-75.2) % Lymph % (Auto) 16.7 L (20.5-50.1) % Towns % (Auto) 12.2 H (2-8) % Eos % (Auto) 1.8 (1.0-3.0) % Baso % (Auto) 0.3 (0.0-1.0) % Sodium 131 L (135-145) mmol/L Potassium 4.9 (3.6-5.0) mmol/L Chloride 98 L (101-111) mmol/L Carbon Dioxide 22.0 (21.0-31.0) mmol/L Anion Gap 15.9 BUN 37 H (7-18) mg/dL Creatinine 1.3 (0.6-1.3) mg/dL Est Cr Clr Drug Dosing 70.31 mL/min Estimated GFR (MDRD) 55 BUN/Creatinine Ratio 28.46 Glucose 560 H* (74-105) mg/dL POC Glucose > 500 H* (70-105) mg/dl Calcium 9.5 (8.4-10.2) mg/dl Phosphorus 4.2 (2.5-4.6) mg/dL Magnesium 2.1 (1.8-2.5) mg/dL Total Bilirubin 0.9 (0.2-1.0) mg/dL AST 59 H (10-42) IU/L ALT 56 (10-60) IU/L Alkaline Phosphatase 308 H (42-121) IU/L Total Protein 7.3 (6.7-8.2) g/dl Albumin 3.0 L (3.2-5.5) g/dl Globulin 4.3 Albumin/Globulin Ratio 0.70 08/18/17 Range/Units 14:31 WBC (5.0-10.0) 10^3/uL RBC (4.6-6.2) 10^6/uL Hgb (14.0-18.0) g/dL Hct (40.0-54.0) % MCV (80-100) fL MCH (27.0-34.0) pg MCHC (33.0-35.0) g/dL Plt Count (150-450) 10^3/uL Neut % (Auto) (42.2-75.2) % Lymph % (Auto) (20.5-50.1) % Towns % (Auto) (2-8) % Eos % (Auto) (1.0-3.0) % Baso % (Auto) (0.0-1.0) % Sodium (135-145) mmol/L Potassium (3.6-5.0) mmol/L Chloride (101-111) mmol/L Carbon Dioxide (21.0-31.0) mmol/L Anion Gap BUN (7-18) mg/dL Creatinine (0.6-1.3) mg/dL Est Cr Clr Drug Dosing mL/min Estimated GFR (MDRD) BUN/Creatinine Ratio Glucose (74-105) mg/dL POC Glucose > 500 H* (70-105) mg/dl Calcium (8.4-10.2) mg/dl Phosphorus (2.5-4.6) mg/dL Magnesium (1.8-2.5) mg/dL Total Bilirubin (0.2-1.0) mg/dL AST (10-42) IU/L ALT (10-60) IU/L Alkaline Phosphatase (42-121) IU/L Total Protein (6.7-8.2) g/dl Albumin (3.2-5.5) g/dl Globulin Albumin/Globulin Ratio Result Diagrams: 10/10/16 06:10 10/10/16 06:10 *Q Meaningful Use (ADM) - VTE *Q VTE Criteria *Q: - Stroke *Q Stroke Criteria *Q: - AMI *Q AMI Criteria *Q: Problem List Initiated/Reviewed/Updated: Yes Orders Last 24hrs: Active Orders 24 hr Category Date Time Status Patient Status [ADT] Routine ADT 10/09/16 11:53 Active Blood Glucose Check, Bedside [RC] Q2HWA Care 10/09/16 12:18 Active Oxygen Therapy [RC] PRN Care 10/09/16 11:53 Inactive Oxygen Therapy [RC] PRN Care 10/09/16 12:16 Active Peripheral IV Care [RC] 09,21 Care 10/09/16 12:16 Active Up With Assistance [RC] ASDIRECTED Care 10/09/16 12:15 Active VTE/DVT Education [RC] PER UNIT ROUTINE Care 10/09/16 11:53 Active Vital Signs [RC] Q4HR Care 10/09/16 11:53 Active Consistent Carbohydrate Diet [DIET] Diet 10/09/16 Lunch Active Insulin Aspart [NovoLOG] Med 10/09/16 16:00 Ordered See Protocol SUBCUT Q2HR Sodium Chloride 0.9% [Normal Saline] 1,000 ml Med 10/09/16 12:15 Active IV ASDIRECTED Sodium Chloride 0.9% [Saline Flush] Med 10/09/16 12:15 Active 10 ml FLUSH ASDIRECTED PRN Blood Pressure [OM.PC] Q2HWA Oth 10/09/16 13:38 Ordered Peripheral IV Insertion Adult [OM.PC] Routine Oth 10/09/16 12:15 Ordered Code Status [Resuscitation Status] Routine Resus Stat 10/09/16 14:45 Ordered Medication Orders Sodium Chloride (Normal Saline) 1,000 mls @ 200 mls/hr IV ASDIRECTED TARA Last Admin: 10/09/16 13:20 Dose: 200 mls/hr Insulin Aspart (Novolog) 0 unit SUBCUT Q2HR TARA PRN Reason: Protocol Sodium Chloride (Saline Flush) 10 ml FLUSH ASDIRECTED PRN PRN Reason: Keep Vein Open Assessment/Plan Comment:: 1. Diabetes mellitus, uncontrolled - non acidotic - normal saline 200m/hr - gluchecks every 2 hours and to cover with medium scale corrective dosing - Lantus 10 units now 2. borderline BP - holding BP meds - saline hydration as above - BP checks every 2 hours 3. renal insufficiency, likely prerenal - hydrate - monitor UO - recheck BMP 4. ulcerated callous - no signs of infection - follows podiatry outpatient - continue to apply topical antibotic and have this area covered 5. DVT Prophylaxis 6. COde: FUll
[2016-10-09] MEDS: Bacitracin Oint 28.35 GM Tube TOP SCH ×2 (16:17→22:36)
[2016-10-09] MEDS: Insulin Aspart 100 Units/ML 3 ML Pen SUBCUT SCH ×3 (16:39→21:14)
[2016-10-09] MEDS ORDERED: Insulin Detemir 100 Units/ML 3 ML Pen SUBCUT SCH (21:00)
[2016-10-09] MEDS: Tamsulosin 0.4 MG Cap.ER PO SCH (21:15)
[2016-10-09] MEDS: Zolpidem 5 MG Tab PO PRN (22:37)
[2016-10-10] MEDS: Insulin Aspart 100 Units/ML 3 ML Pen SUBCUT SCH ×7 (00:54→20:27)
[2016-10-10] MEDS: Sodium Chloride 0.9% 1,000 ML IV SCH ×2 (01:01→18:19)
[2016-10-10 06:43] LABS: CHLORIDE,CL 113 mmol/L (101-111); SODIUM,NA 140 mmol/L (135-145)
[2016-10-10] MEDS: Enoxaparin 40 MG/0.4 ML Syringe SUBCUT SCH (08:57)
[2016-10-10] MEDS: Glimepiride 2 MG Tab PO SCH (08:57)
[2016-10-10] MEDS ORDERED: Non-Formulary Medication 1 Each (Metformin [Glucophage Xr] 500 MG) PO SCH (09:00)
--- NOTE | 2016-10-10 10:56 | PCM.PN ---
- General Info Date of Service: 10/10/16 Admission Dx/Problem (Free Text): Admission Diagnosis/Problem Admission Diagnosis/Problem Hyperglycemia Subjective Update: Pt feeling better today, No nausea or vomiting, No fever or chill, appetite is good, slept well and getting regular BM Functional Status: Reports: Pain Controlled, Tolerating Diet, Ambulating, Urinating - Review of Systems General: Reports: Appetite (good). Denies: Fever, Chills HEENT: Denies: Headaches, Sinus Congestion, Visual Changes Pulmonary: Denies: Shortness of Breath, Cough, Sputum, Wheezing Cardiovascular: Denies: Chest Pain, Dyspnea on Exertion, Edema, Lightheadedness Gastrointestinal: Denies: Abdominal Pain, Nausea, Vomiting Genitourinary: Denies: Dysuria, Frequency, Burning, Urgency, Flank Pain Musculoskeletal: Denies: Neck Pain, Hand Pain, Foot Pain, Joint Pain Skin: Denies: Cyanosis, Jaundice Neurological: Denies: Confusion, Tingling, Tremors Psychiatric: Denies: Confusion, Anxiety - Patient Data Vitals - Most Recent: Last Vital Signs Temp 36.9 C 10/10/16 07:45 Pulse 67 10/10/16 07:45 Resp 20 10/10/16 07:45 BP 112/66 10/10/16 07:45 Pulse Ox 98 10/10/16 07:45 Weight - Most Recent: 102.058 kg I&O - Last 24 Hours: Intake & Output 10/09/16 10/10/16 10/10/16 22:59 06:59 14:59 Intake Total 1580 2260 Output Total 900 Balance 1580 1360 Lab Results Last 24 Hours: Laboratory Results - last 24 hr 10/09/16 10/09/16 10/09/16 Range/Units 11:35 12:31 12:31 WBC 9.5 (5.0-10.0) 10^3/uL RBC 4.12 L (4.6-6.2) 10^6/uL Hgb 12.7 L (14.0-18.0) g/dL Hct 37.6 L (40.0-54.0) % MCV 91.3 (80-100) fL MCH 30.8 (27.0-34.0) pg MCHC 33.8 (33.0-35.0) g/dL Plt Count 131 L (150-450) 10^3/uL Neut % (Auto) 69.0 (42.2-75.2) % Lymph % (Auto) 16.7 L (20.5-50.1) % Hand % (Auto) 12.2 H (2-8) % Eos % (Auto) 1.8 (1.0-3.0) % Baso % (Auto) 0.3 (0.0-1.0) % Sodium 131 L (135-145) mmol/L Potassium 4.9 (3.6-5.0) mmol/L Chloride 98 L (101-111) mmol/L Carbon Dioxide 22.0 (21.0-31.0) mmol/L Anion Gap 15.9 BUN 37 H (7-18) mg/dL Creatinine 1.3 (0.6-1.3) mg/dL Est Cr Clr Drug Dosing 70.31 mL/min Estimated GFR (MDRD) 55 BUN/Creatinine Ratio 28.46 Glucose 560 H* (74-105) mg/dL POC Glucose > 500 H* (70-105) mg/dl Calcium 9.5 (8.4-10.2) mg/dl Phosphorus 4.2 (2.5-4.6) mg/dL Magnesium 2.1 (1.8-2.5) mg/dL Total Bilirubin 0.9 (0.2-1.0) mg/dL AST 59 H (10-42) IU/L ALT 56 (10-60) IU/L Alkaline Phosphatase 308 H (42-121) IU/L Total Protein 7.3 (6.7-8.2) g/dl Albumin 3.0 L (3.2-5.5) g/dl Globulin 4.3 Albumin/Globulin Ratio 0.70 Ketones 10/09/16 10/09/16 10/09/16 Range/Units 12:31 14:31 16:27 WBC (5.0-10.0) 10^3/uL RBC (4.6-6.2) 10^6/uL Hgb (14.0-18.0) g/dL Hct (40.0-54.0) % MCV (80-100) fL MCH (27.0-34.0) pg MCHC (33.0-35.0) g/dL Plt Count (150-450) 10^3/uL Neut % (Auto) (42.2-75.2) % Lymph % (Auto) (20.5-50.1) % Hand % (Auto) (2-8) % Eos % (Auto) (1.0-3.0) % Baso % (Auto) (0.0-1.0) % Sodium (135-145) mmol/L Potassium (3.6-5.0) mmol/L Chloride (101-111) mmol/L Carbon Dioxide (21.0-31.0) mmol/L Anion Gap BUN (7-18) mg/dL Creatinine (0.6-1.3) mg/dL Est Cr Clr Drug Dosing mL/min Estimated GFR (MDRD) BUN/Creatinine Ratio Glucose (74-105) mg/dL POC Glucose > 500 H* 455 H* (70-105) mg/dl Calcium (8.4-10.2) mg/dl Phosphorus (2.5-4.6) mg/dL Magnesium (1.8-2.5) mg/dL Total Bilirubin (0.2-1.0) mg/dL AST (10-42) IU/L ALT (10-60) IU/L Alkaline Phosphatase (42-121) IU/L Total Protein (6.7-8.2) g/dl Albumin (3.2-5.5) g/dl Globulin Albumin/Globulin Ratio Ketones Negative 10/09/16 10/10/16 10/10/16 Range/Units 20:50 00:39 04:22 WBC (5.0-10.0) 10^3/uL RBC (4.6-6.2) 10^6/uL Hgb (14.0-18.0) g/dL Hct (40.0-54.0) % MCV (80-100) fL MCH (27.0-34.0) pg MCHC (33.0-35.0) g/dL Plt Count (150-450) 10^3/uL Neut % (Auto) (42.2-75.2) % Lymph % (Auto) (20.5-50.1) % Hand % (Auto) (2-8) % Eos % (Auto) (1.0-3.0) % Baso % (Auto) (0.0-1.0) % Sodium (135-145) mmol/L Potassium (3.6-5.0) mmol/L Chloride (101-111) mmol/L Carbon Dioxide (21.0-31.0) mmol/L Anion Gap BUN (7-18) mg/dL Creatinine (0.6-1.3) mg/dL Est Cr Clr Drug Dosing mL/min Estimated GFR (MDRD) BUN/Creatinine Ratio Glucose (74-105) mg/dL POC Glucose 314 H 289 H 221 H (70-105) mg/dl Calcium (8.4-10.2) mg/dl Phosphorus (2.5-4.6) mg/dL Magnesium (1.8-2.5) mg/dL Total Bilirubin (0.2-1.0) mg/dL AST (10-42) IU/L ALT (10-60) IU/L Alkaline Phosphatase (42-121) IU/L Total Protein (6.7-8.2) g/dl Albumin (3.2-5.5) g/dl Globulin Albumin/Globulin Ratio Ketones 10/10/16 10/10/16 10/10/16 Range/Units 06:10 06:10 07:58 WBC 7.6 (5.0-10.0) 10^3/uL RBC 3.80 L (4.6-6.2) 10^6/uL Hgb 11.7 L (14.0-18.0) g/dL Hct 34.4 L (40.0-54.0) % MCV 90.5 (80-100) fL MCH 30.8 (27.0-34.0) pg MCHC 34.0 (33.0-35.0) g/dL Plt Count 114 L (150-450) 10^3/uL Neut % (Auto) (42.2-75.2) % Lymph % (Auto) (20.5-50.1) % Hand % (Auto) (2-8) % Eos % (Auto) (1.0-3.0) % Baso % (Auto) (0.0-1.0) % Sodium 140 (135-145) mmol/L Potassium 3.9 (3.6-5.0) mmol/L Chloride 113 H (101-111) mmol/L Carbon Dioxide 19.0 L (21.0-31.0) mmol/L Anion Gap 11.9 BUN 27 H (7-18) mg/dL Creatinine 1.0 (0.6-1.3) mg/dL Est Cr Clr Drug Dosing 91.40 mL/min Estimated GFR (MDRD) > 60 BUN/Creatinine Ratio Glucose 211 H (74-105) mg/dL POC Glucose 183 H (70-105) mg/dl Calcium 8.9 (8.4-10.2) mg/dl Phosphorus (2.5-4.6) mg/dL Magnesium (1.8-2.5) mg/dL Total Bilirubin (0.2-1.0) mg/dL AST (10-42) IU/L ALT (10-60) IU/L Alkaline Phosphatase (42-121) IU/L Total Protein (6.7-8.2) g/dl Albumin (3.2-5.5) g/dl Globulin Albumin/Globulin Ratio Ketones Med Orders - Current: Current Medications Bacitracin (Bacitracin Oint) 1 gm TOP BID [facility] Last Admin: 10/09/16 22:36 Dose: 1 applic Enoxaparin Sodium (Lovenox) 40 mg SUBCUT DAILY [facility] Last Admin: 10/10/16 08:57 Dose: 40 mg Glimepiride (Amaryl) 2 mg PO WITHBREAKFAST [facility] Last Admin: 10/10/16 08:57 Dose: 2 mg Sodium Chloride (Normal Saline) 1,000 mls @ 150 mls/hr IV ASDIRECTED [facility] Last Admin: 10/10/16 01:01 Dose: 150 mls/hr Insulin Aspart (Novolog) 0 unit SUBCUT Q4H [facility] PRN Reason: Protocol Last Admin: 10/10/16 08:58 Dose: 2 units Insulin Detemir (Levemir) 10 unit SUBCUT BEDTIME [facility] Last Admin: 10/09/16 21:12 Dose: 10 units Sodium Chloride (Saline Flush) 10 ml FLUSH ASDIRECTED PRN PRN Reason: Keep Vein Open Tamsulosin HCl (Flomax) 0.4 mg PO BEDTIME [facility] Last Admin: 10/09/16 21:15 Dose: 0.4 mg Zolpidem Tartrate (Ambien) 5 mg PO BEDTIME PRN PRN Reason: Insomnia Last Admin: 08/18/17 22:37 Dose: 5 mg Discontinued Medications Insulin Aspart (Novolog) 10 unit SUBCUT ONETIME ONE Stop: 10/09/16 12:19 Last Admin: 10/09/16 13:18 Dose: 10 units Insulin Aspart (Novolog) 0 unit SUBCUT Q2HR [facility] PRN Reason: Protocol Last Admin: 10/09/16 18:08 Dose: Not Given Insulin Aspart (Novolog) 12 unit SUBCUT ONETIME ONE Stop: 10/09/16 14:50 Last Admin: 10/09/16 15:25 Dose: 12 units Insulin Aspart (Novolog) 0 unit SUBCUT Q4HR [facility] PRN Reason: Protocol Last Admin: 10/10/16 00:54 Dose: 6 units Insulin Detemir (Levemir) 10 unit SUBCUT ONETIME ONE Stop: 10/09/16 14:50 Last Admin: 10/09/16 15:26 Dose: 10 units Non-Formulary Medication (Metformin [Glucophage Xr]) 500 mg PO DAILY [facility] - Exam Quality Assessment: DVT Prophylaxis. No: Supplemental Oxygen, Urine Catheter General: Alert, Oriented, Cooperative, No Acute Distress HEENT: Pupils Equal, Mucous Membr. Moist/[employer] Neck: Supple. No: No JVD, Lymphadenopathy Lungs: Clear to Auscultation, Normal Respiratory Effort. No: Crackles, Wheezing Cardiovascular: Regular Rate, Regular Rhythm GI/Abdominal Exam: Normal Bowel Sounds, No Distention. No: Guarding, Rebound, Tender (Male) Exam: Deferred Back Exam: Normal Inspection, Full Range of Motion Extremities: Normal Inspection, No Pedal Edema, Other (Rt toe wound. no drainage ). No: Joint Swelling Skin: Warm, Intact Neurological: No New Focal Deficit, Normal Gait, Normal Speech Psy/Mental Status: Alert, Normal Affect, Normal Mood - Problem List Review Problem List Initiated/Reviewed/Updated: Yes - Plan Plan:: This is a 70 Y/O Ma admitted with Hyperglycemia. Past history significant gor Diabetes II ( Non-Insulin Dependent) and Hypertension, he follows with Dr. Busch 1. Diabetes mellitus, uncontrolled - non acidotic - Continue normal saline at 100m/hr - gluchecks every 4 hours and to cover with medium scale corrective dosing - Will start him on Metformin 500 mg daily and continue Amaryl at 2 mg daily -Will stop Levemit 10 units ( was getting nightly) 2. Hypertension: BP acceptable - holding Home BP meds ( Lisinopril and Metoprolol) - Continue saline hydration as above - BP checks every 2 hours 3. renal insufficiency, likely prerenal from Hyperglycemia - Continue NS - monitor UO - recheck BMP in AMN -Renal function is back to base line 4. ulcerated callous - no signs of infection - follows podiatry outpatient - continue to apply topical antibotic and have this area covered 5. DVT Prophylaxis 6. COde: FUll
[2016-10-10] MEDS: Bacitracin Oint 28.35 GM Tube TOP SCH ×2 (11:21→20:28)
[2016-10-10] MEDS: metFORMIN 500 MG Tab PO SCH ×2 (16:50→17:23)
[2016-10-10] MEDS: Tamsulosin 0.4 MG Cap.ER PO SCH (20:28)
[2016-10-10] MEDS: Zolpidem 5 MG Tab PO PRN (20:28)
[2016-10-11] MEDS: Insulin Aspart 100 Units/ML 3 ML Pen SUBCUT SCH ×3 (00:01→07:58)
[2016-10-11] MEDS: Sodium Chloride 0.9% 1,000 ML IV SCH (04:15)
[2016-10-11] MEDS: Glimepiride 2 MG Tab PO SCH (07:58)
[2016-10-11] MEDS: Bacitracin Oint 28.35 GM Tube TOP SCH (07:59)
[2016-10-11] MEDS: Enoxaparin 40 MG/0.4 ML Syringe SUBCUT SCH (08:00)
[2016-10-11 08:29] VITALS: BP 139/75
--- NOTE | 2016-10-11 09:42 | PCM.DCSUM1 ---
Discharge Summary - Hospital Course Free Text/Narrative:: This is a 70 Y/O Male admitted with Hyperglycemia. Past medical history significant for Diabetes II ( Non-Insulin Dependent) and Hypertension, he follows with Dr. Busch. He was treated with sliding scale insulin and levemir.He also had BOB secondary to Dehydration and hyperglycemia, causing decreased renal perfusion and leading to Ischemic injury Vs ATN. Renal function recovered with hydration, and temporarily metformin was placed on hold but re- started after the recovery of renal function. He will be discharge home today ( 10/11/16) and advise to follow with PMD within 3-4 days after discharge. HPI Initial Comments: This is a 70 Y/O M admitted with Hyperglycemia. Past history significant for Diabetes II ( Non-Insulin Dependent) and Hypertension, he follows with Dr. Busch. he is doing well and will be discharge home today. He will follow with PMD after the discharge. - Discharge Data Discharge Date: 10/11/16 Discharge Disposition: Home, Self-Care 01 Condition: Good - Discharge Diagnosis/Problem(s) (1) Diabetes SNOMED Code(s): 08530556 ICD Code: E11.9 - TYPE 2 DIABETES MELLITUS WITHOUT COMPLICATIONS Status: Acute Current Visit: No Qualifiers: Diabetes mellitus type: type 2 Diabetes mellitus complication status: without complication Diabetes mellitus doctor of pharmacy insulin use: without doctor of pharmacy use Qualified Code(s): E11.9 - Type 2 diabetes mellitus without complications (2) Hypertension SNOMED Code(s): 06055553 ICD Code: I10 - ESSENTIAL (PRIMARY) HYPERTENSION Status: Acute Current Visit: No Qualifiers: Hypertension type: essential hypertension Qualified Code(s): I10 - Essential (primary) hypertension - Patient Summary/Data Recommended Follow-up Testing/Procedures: Follow up with PMD in 3-4 days - Patient Instructions Diet: Diabetic Diet Activity: As Tolerated Driving: May Drive Today Showering/Bathing: May Shower Notify Provider of: Fever, Swelling and Redness, Drainage Other/Special Instructions: This is a 70 Y/O Ma admitted with Hyperglycemia. Past history significant gor Diabetes II ( Non-Insulin Dependent) and Hypertension, he follows with Dr. Busch. He was treated with sliding scale insulin and levemir.He also had BOB secondary to Dehydration and hyperglycemia and recovered with hydration, temporarily metformin was placed on hold but re- started after the recovery of renal function. He will be discharge home today ( 10/11/16) and advise to follow with PMD within 3-4 days after discharge. - Discharge Plan Home Medications: Home Meds metFORMIN [Glucophage XR] 500 mg PO DAILY 12/01/15 [History] Tamsulosin [Flomax] 1 tab PO BEDTIME 12/03/15 [History] Lisinopril [Prinivil] 5 mg PO DAILY 01/27/16 [History] Metoprolol Tartrate 25 mg PO BID 07/31/16 [History] Glimepiride [Amaryl] 1 mg PO WITHBREAKFAST 10/09/16 [History] Patient Handouts: Diabetes and Foot Care, Hyperglycemia, [id number] - Discharge Summary/Plan Comment DC Time >30 min.: Yes Discharge Summary/Plan Comment: This is a 70 Y/O Ma admitted with Hyperglycemia. Past history significant gor Diabetes II ( Non-Insulin Dependent) and Hypertension, he follows with Dr. Busch. He feels good today and will be going home. will follow with PMD in 3- 4 days 1. Diabetes mellitus, uncontrolled - Will continue Metformin 500 mg daily and continue Amaryl at 2 mg daily 2. Hypertension: BP acceptable - Resume home Medication Lisinopril and Metoprolol) - Check BP Regularly 3. renal insufficiency, likely prerenal from Hyperglycemia - Renal function is back to base line 4. ulcerated callous - no signs of infection - follows podiatry outpatient - continue to apply topical antibotic and have this area covered 5. Disposition: -He will go home today and will follow with PMD in 3-4 days - Patient Data Vitals - Most Recent: Last Vital Signs Temp 37.0 C 10/11/16 08:28 Pulse 72 10/11/16 08:28 Resp 20 10/11/16 08:28 BP 139/75 10/11/16 08:28 Pulse Ox 98 10/11/16 08:28 Weight - Most Recent: 102.058 kg I&O - Last 24 hours: Intake & Output 10/10/16 10/11/16 10/11/16 22:59 06:59 14:59 Intake Total 1090 1555 Output Total 300 1900 Balance 790 -345 Lab Results - Last 24 hrs: Laboratory Results - last 24 hr 10/10/16 10/10/16 10/10/16 Range/Units 11:08 16:19 20:13 POC Glucose 268 H 246 H 250 H (70-105) mg/dl 10/10/16 10/11/16 10/11/16 Range/Units 23:51 04:22 07:57 POC Glucose 143 H 187 H 185 H (70-105) mg/dl Med Orders - Current: Current Medications Bacitracin (Bacitracin Oint) 1 gm TOP BID [facility] Last Admin: 10/11/16 07:59 Dose: 1 applic Enoxaparin Sodium (Lovenox) 40 mg SUBCUT DAILY [facility] Last Admin: 10/11/16 08:00 Dose: 40 mg Glimepiride (Amaryl) 2 mg PO WITHBREAKFAST [facility] Last Admin: 10/11/16 07:58 Dose: 2 mg Sodium Chloride (Normal Saline) 1,000 mls @ 100 mls/hr IV ASDIRECTED [facility] Last Admin: 10/11/16 04:15 Dose: 100 mls/hr Insulin Aspart (Novolog) 0 unit SUBCUT Q4H [facility] PRN Reason: Protocol Last Admin: 10/11/16 07:58 Dose: 2 units Metformin HCl (Glucophage) 500 mg PO WITHDINNER [facility] Last Admin: 10/10/16 17:23 Dose: Not Given Sodium Chloride (Saline Flush) 10 ml FLUSH ASDIRECTED PRN PRN Reason: Keep Vein Open Tamsulosin HCl (Flomax) 0.4 mg PO BEDTIME [facility] Last Admin: 10/10/16 20:28 Dose: 0.4 mg Zolpidem Tartrate (Ambien) 5 mg PO BEDTIME PRN PRN Reason: Insomnia Last Admin: 10/10/16 20:28 Dose: 5 mg Discontinued Medications Insulin Aspart (Novolog) 10 unit SUBCUT ONETIME ONE Stop: 10/09/16 12:19 Last Admin: 10/09/16 13:18 Dose: 10 units Insulin Aspart (Novolog) 0 unit SUBCUT Q2HR [facility] PRN Reason: Protocol Last Admin: 10/09/16 18:08 Dose: Not Given Insulin Aspart (Novolog) 12 unit SUBCUT ONETIME ONE Stop: 10/09/16 14:50 Last Admin: 10/09/16 15:25 Dose: 12 units Insulin Aspart (Novolog) 0 unit SUBCUT Q4HR [facility] PRN Reason: Protocol Last Admin: 10/10/16 20:21 Dose: Not Given Insulin Detemir (Levemir) 10 unit SUBCUT ONETIME ONE Stop: 10/09/16 14:50 Last Admin: 10/09/16 15:26 Dose: 10 units Insulin Detemir (Levemir) 10 unit SUBCUT BEDTIME [facility] Last Admin: 10/09/16 21:12 Dose: 10 units Non-Formulary Medication (Metformin [Glucophage Xr]) 500 mg PO DAILY [facility] *Q Meaningful Use (DIS) - VTE *Q VTE Criteria *Q: - Stroke *Q Stroke Criteria *Q: - AMI *Q AMI Criteria *Q:
== END 2016-10-11 10:55 | disposition home or self-care (01) | DRG 420 ==
LOC: DL.MS 11:53
PROVIDERS: ADMIT Internal Medicine; ATTEND Internal Medicine
DX: E11.65 Type 2 diabetes mellitus with hyperglycemia (principal); I10 Essential (primary) hypertension; N17.9 Acute kidney failure, unspecified; E86.0 Dehydration; Z79.4 Long term (current) use of insulin; Z79.84 Long term (current) use of oral hypoglycemic drugs; I48.91 Unspecified atrial fibrillation; Z86.73 Personal history of transient ischemic attack (TIA), and cerebral infarction without residual deficits; Z86.14 Personal history of Methicillin resistant Staphylococcus aureus infection; Z87.891 Personal history of nicotine dependence; L97.519 Non-pressure chronic ulcer of other part of right foot with unspecified severity; E11.621 Type 2 diabetes mellitus with foot ulcer
CPT/HCPCS: 36415; 80048; 80053; 82009; 82962; 83735; 84100; 85025; 85027; A9270-GY; J1650; J1815-GY; J7030

== ENCOUNTER 2016-10-15 08:57 | Inpatient (IN) | payer BC, MEDICARE ==
[2016-10-15] MEDS ORDERED: Sodium Chloride 0.9% 1,000 ML IV ONE (09:32)
--- NOTE | 2016-10-15 09:47 | EDM.PDOC ---
ED HPI GENERAL MEDICAL PROBLEM - General Chief Complaint: Diabetic Complaint Stated Complaint: SUGAR HIGH OR LOW Time Seen by Provider: 10/15/16 09:38 Source of Information: Reports: Patient History Limitations: Reports: No Limitations - History of Present Illness INITIAL COMMENTS - FREE TEXT/NARRATIVE: This 70 yo male patient reports to the ED due to feeling "lousy". The patient does not have any specific areas of concern. The patient reports he thinks his current problem is his diabetes, but would not give any additional details. 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 The patient was recently an inpatient and was discharged on 10/11/16. The discharge instruction were for the patient to follow-up with his primary care provider in 3-[address] days[address] The patient [address] Dr. Busch does not have any appointments until next week, so he has not seen his primary care provider at this time. Onset: Today Duration: Constant Location: Reports: Generalized Quality: Reports: Other Severity: Moderate Improves with: Reports: None Worsens with: Reports: None Context: Reports: Other - Related Data Allergies Allergy/AdvReac Type Severity Reaction Status Date / Time acetaminophen Allergy Nausea Verified 10/09/16 12:11 [From Tylenol-Codeine #3] codeine phosphate Allergy Nausea Verified 10/09/16 12:11 [From Tylenol-Codeine #3] lansoprazole [From Prevacid] Allergy Cannot Verified 10/09/16 12:11 Remember Home Meds: Home Meds metFORMIN [Glucophage XR] 500 mg PO DAILY 12/01/15 [History] Tamsulosin [Flomax] 1 tab PO BEDTIME 12/03/15 [History] Lisinopril [Prinivil] 5 mg PO DAILY 01/27/16 [History] Metoprolol Tartrate 25 mg PO BID 07/31/16 [History] Glimepiride [Amaryl] 1 mg PO WITHBREAKFAST 10/09/16 [History] Past Medical History HEENT History: Reports: Hard of Hearing, Impaired Vision Other HEENT History: wears glasses Cardiovascular History: Reports: Afib, Hypertension Respiratory History: Reports: None Gastrointestinal History: Reports: Pancreatitis, PUD, Other (See Below) Other Gastrointestinal History: ALCOHOLIC LIVER DISEASE. 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 Fracture to skull Neurological History: Reports: CVA Psychiatric History: Reports: Other (See Below) Other Psychiatric History: CHRONIC ALCOHOLISM Endocrine/Metabolic History: Reports: Diabetes, Type II Other Endocrine/Metabolic History: diabetic ulcer and cellulitis right great toe Hematologic History: Reports: Other (See Below) Other Hematologic History: MRSA Immunologic History: Reports: None Oncologic (Cancer) History: Reports: None Dermatologic History: Reports: Other (See Below) Other Dermatologic History: CYST REMOVAL - VOICE BOX - Infectious Disease History Infectious Disease History: Reports: MRSA Other Infectious Disease History: HX of MRSA - Past Surgical History Head Surgeries/Procedures: Reports: Craniotomy Social & Family History - Family History Family Medical History: Noncontributory Neurological: Reports: Alzheimers Disease Oncologic: Reports: Other (See Below) Other Oncologic Family History: Father from cancer in bile ducts. - Tobacco Use Smoking Status *Q: Former Smoker Years of Tobacco use: 15 Packs/Tins Daily: 1.5 Used Tobacco, but Quit: Yes Month Tobacco Last Used: unknown Second Hand Smoke Exposure: No - Caffeine Use Caffeine Use: Reports: None - Alcohol Use Days Per Week of Alcohol Use: 7 Number of Drinks Per Day: 6 Total Drinks Per Week: 42 - Recreational Drug Use Recreational Drug Use: Yes Drug Use in Last 12 Months: Yes Recreational Drug Type: Reports: Marijuana/Hashish Other Recreational Drug Type: "couple times a week" Recreational Drug Use Frequency: Weekly Recreational Drug Last Use: "about four days ago" - Living Situation & Occupation Living situation: Reports: Alone Occupation: Employed ED ROS GENERAL - Review of Systems Review Of Systems: ROS reveals no pertinent complaints other than HPI. ED EXAM GENERAL NO PERIP PULSE - Physical Exam Exam: See Below Exam Limited By: No Limitations General Appearance: Alert, WD/WN, Moderate Distress Eye Exam: Bilateral Eye: EOMI, Normal Inspection, PERRL Ears: Normal External Exam, Normal Canal, Hearing Grossly Normal, Normal TMs Nose: Normal Inspection, Normal Mucosa, No Blood Throat/Mouth: Normal Inspection, Normal Lips, Normal Teeth, Normal Gums, Normal Oropharynx, Normal Voice, No Airway Compromise Head: Atraumatic, Normocephalic Neck: Normal Inspection, Supple, Non-Tender, Full Range of Motion Respiratory/Chest: No Respiratory Distress, Lungs Clear, Normal Breath Sounds, No Accessory Muscle Use, Chest Non-Tender Cardiovascular: Normal Peripheral Pulses, Regular Rate, Rhythm, No Edema, No Gallop, No JVD, No Murmur, No Rub GI/Abdominal: Normal Bowel Sounds, Soft, Non-Tender, No Organomegaly, No Distention, No Abnormal Bruit, No Mass (Male) Exam: Deferred Rectal (Males) Exam: Deferred Back Exam: Normal Inspection, Full Range of Motion, NT Extremities: Normal Inspection, Normal Range of Motion, Non-Tender, Normal Capillary Refill, Pedal Edema (2+ (when asked the patient reports swelling for the past several weeks)) Neurological: Alert, Oriented, CN II-XII Intact, Normal Cognition, Normal Gait, Normal Reflexes, No Motor/Sensory Deficits Psychiatric: Depressed Mood, Flat Affect Skin Exam: Dry, Intact, Normal Color, No Rash, Increased Warmth Lymphatic: No Adenopathy Course - Vital Signs Last Recorded V/S: Last Vital Signs Temp 38.0 C 10/15/16 10:06 Pulse 82 10/15/16 09:06 Resp 24 H 10/15/16 09:06 BP 105/55 L 10/15/16 09:06 Pulse Ox 97 10/15/16 09:06 - Orders/Labs/Meds Orders: Active Orders 24 hr Category Date Time Status CULTURE BLOOD [BC] Stat Lab 10/15/16 09:42 Results CULTURE BLOOD [BC] Stat Lab 10/15/16 09:44 Received Piperacillin/Tazobactam [Zosyn] 3.375 gm Med 10/15/16 11:08 Ordered Sodium Chloride 0.9% [Normal Saline] 100 ml IV ONETIME Sodium Chloride 0.9% [Normal Saline] 1,000 ml Med 10/15/16 09:32 Active IV .BOLUS Blood Culture x2 Reflex Set [OM.PC] Stat Oth 10/15/16 09:32 Ordered Medication Orders Sodium Chloride (Normal Saline) 1,000 mls @ 250 mls/hr IV .BOLUS ONE Stop: 10/15/16 13:31 Last Admin: 10/15/16 09:50 Dose: 250 mls/hr Piperacillin Sod/Tazobactam (Sod 3.375 gm/ Sodium Chloride) 100 mls @ 200 mls/ hr IV ONETIME ONE Stop: 10/15/16 11:37 Labs: Laboratory Tests 10/15/16 10/15/16 10/15/16 Range/Units 09:15 09:21 09:44 WBC (5.0-10.0) 10^3/uL RBC (4.6-6.2) 10^6/uL Hgb (14.0-18.0) g/dL Hct (40.0-54.0) % MCV (80-100) fL MCH (27.0-34.0) pg MCHC (33.0-35.0) g/dL Plt Count (150-450) 10^3/uL Neut % (Auto) (42.2-75.2) % Lymph % (Auto) (20.5-50.1) % [place]row[place] % (Auto) (2-8) % Eos % (Auto) (1.0-3.0) % Baso % (Auto) (0.0-1.0) % Sodium (135-145) mmol/L Potassium (3.6-5.0) mmol/L Chloride (101-111) mmol/L Carbon Dioxide (21.0-31.0) mmol/L Anion Gap BUN (7-18) mg/dL Creatinine (0.6-1.3) mg/dL Est Cr Clr Drug Dosing mL/min Estimated GFR (MDRD) BUN/Creatinine Ratio Glucose (74-105) mg/dL POC Glucose 310 H (70-105) mg/dl Lactic Acid (0.5-2.2) mmol/L Calcium (8.4-10.2) mg/dl Magnesium 1.6 L (1.8-2.5) mg/dL Total Bilirubin (0.2-1.0) mg/dL AST (10-42) IU/L ALT (10-60) IU/L Alkaline Phosphatase (42-121) IU/L Total Protein (6.7-8.2) g/dl Albumin (3.2-5.5) g/dl Globulin Albumin/Globulin Ratio Urine Color Yellow (YELLOW) Urine Appearance Slightly cloudy (CLEAR) Urine pH 5.0 (5.0-9.0) Ur Specific Randolph 1.010 (1.005-1.030) Urine Protein 100 H (NEGATIVE) Urine Glucose (UA) 500 H (NEGATIVE) Urine Ketones Negative (NEGATIVE) Urine Occult Blood Large H (NEGATIVE) Urine Nitrite Negative (NEGATIVE) Urine Bilirubin Negative (NEGATIVE) Urine Urobilinogen 0.2 (0.2-1.0) mg/dL Ur Leukocyte Esterase Negative (NEGATIVE) Urine RBC 50-75 H /HPF Urine WBC 0-5 (0-5/HPF) /HPF Ur Epithelial Cells Few /HPF Amorphous Sediment Few (0/HPF) /HPF Urine Bacteria Few (0-FEW/HPF) /HPF Fine Granular Casts Few H (0/LPF) /LPF Urine Mucus Rare /LPF Urine Yeast Few H (0/HPF) /HPF Ketones Negative 10/15/16 10/15/16 10/15/16 Range/Units 09:44 09:44 09:44 WBC 13.1 H (5.0-10.0) 10^3/uL RBC 4.37 L (4.6-6.2) 10^6/uL Hgb 13.4 L (14.0-18.0) g/dL Hct 40.0 (40.0-54.0) % MCV 91.5 (80-100) fL MCH 30.7 (27.0-34.0) pg MCHC 33.5 (33.0-35.0) g/dL Plt Count 135 L (150-450) 10^3/uL Neut % (Auto) 88.7 H (42.2-75.2) % Lymph % (Auto) 4.3 L (20.5-50.1) % [place] % (Auto) 6.6 (2-8) % Eos % (Auto) 0.2 L (1.0-3.0) % Baso % (Auto) 0.2 (0.0-1.0) % Sodium 134 L (135-145) mmol/L Potassium 5.0 (3.6-5.0) mmol/L Chloride 103 (101-111) mmol/L Carbon Dioxide 20.0 L (21.0-31.0) mmol/L Anion Gap 16.0 BUN 25 H (7-18) mg/dL Creatinine 1.3 (0.6-1.3) mg/dL Est Cr Clr Drug Dosing 70.31 mL/min Estimated GFR (MDRD) 55 BUN/Creatinine Ratio 19.23 Glucose 332 H (74-105) mg/dL POC Glucose (70-105) mg/dl Lactic Acid 2.2 (0.5-2.2) mmol/L Calcium 9.8 (8.4-10.2) mg/dl Magnesium (1.8-2.5) mg/dL Total Bilirubin 2.1 H (0.2-1.0) mg/dL AST 53 H (10-42) IU/L ALT 50 (10-60) IU/L Alkaline Phosphatase 288 H (42-121) IU/L Total Protein 7.1 (6.7-8.2) g/dl Albumin 3.0 L (3.2-5.5) g/dl Globulin 4.1 Albumin/Globulin Ratio 0.73 Urine Color (YELLOW) Urine Appearance (CLEAR) Urine pH (5.0-9.0) Ur Specific Randolph (1.005-1.030) Urine Protein (NEGATIVE) Urine Glucose (UA) (NEGATIVE) Urine Ketones (NEGATIVE) Urine Occult Blood (NEGATIVE) Urine Nitrite (NEGATIVE) Urine Bilirubin (NEGATIVE) Urine Urobilinogen (0.2-1.0) mg/dL Ur Leukocyte Esterase (NEGATIVE) Urine RBC /HPF Urine WBC (0-5/HPF) /HPF Ur Epithelial Cells /HPF Amorphous Sediment (0/HPF) /HPF Urine Bacteria (0-FEW/HPF) /HPF Fine Granular Casts (0/LPF) /LPF Urine Mucus /LPF Urine Yeast (0/HPF) /HPF Ketones Meds: Medications Generic Name Dose Route Start Last Admin Trade Name Freq PRN Reason Stop Dose Admin Sodium Chloride 1,000 mls @ 250 mls/hr 10/15/16 09:32 10/15/16 09:50 Normal Saline IV 10/15/16 13:31 250 mls/hr .BOLUS ONE Administration Piperacillin Sod/Tazobactam 100 mls @ 200 mls/hr 10/15/16 11:08 Sod 3.375 gm/ Sodium Chloride IV 10/15/16 11:37 ONETIME ONE Departure - Departure Time of Disposition: 11:14 Disposition: Admitted As Inpatient 68 Clinical Impression: Cellulitis of great toe, right, Hyperglycemia - Discharge Information Care Plan Goals: Discussed the examination, history, lab and x-ray results with Dr. Magana. Dr. Magana accepted the patient for continued evaluation and further management as an inpatient at [facility]. - My Orders Last 24 Hours: My Active Orders 10/15/16 09:32 Sodium Chloride 0.9% [Normal Saline] 1,000 ml IV .BOLUS Blood Culture x2 Reflex Set [OM.PC] Stat 10/15/16 09:42 CULTURE BLOOD [BC] Stat 10/15/16 09:44 CULTURE BLOOD [BC] Stat 10/15/16 11:08 Piperacillin/Tazobactam [Zosyn] 3.375 gm Sodium Chloride 0.9% [Normal Saline] 100 ml IV ONETIME - Assessment/Plan Last 24 Hours: My Active Orders 10/15/16 09:32 Sodium Chloride 0.9% [Normal Saline] 1,000 ml IV .BOLUS Blood Culture x2 Reflex Set [OM.PC] Stat 10/15/16 09:42 CULTURE BLOOD [BC] Stat 10/15/16 09:44 CULTURE BLOOD [BC] Stat 10/15/16 11:08 Piperacillin/Tazobactam [Zosyn] 3.375 gm Sodium Chloride 0.9% [Normal Saline] 100 ml IV ONETIME
[2016-10-15] MEDS ORDERED: Piperacillin/Tazobactam 3.375 GM in Sodium Chloride 0.9% 100 ML IV ONE (11:08)
[2016-10-15] MEDS ORDERED: Acetaminophen 325 MG Tab PO PRN (11:35)
[2016-10-15] MEDS ORDERED: Ondansetron 4 MG Tab.DIS PO PRN (11:35)
[2016-10-15] MEDS ORDERED: Ibuprofen 400 MG Tab PO PRN (11:35)
[2016-10-15] MEDS ORDERED: Docusate Sodium 100 MG Cap PO PRN (11:35)
--- NOTE | 2016-10-15 12:07 | PCM.HP ---
H&P History of Present Illness - General Date of Service: 10/15/16 Admit Problem/Dx: Admission Diagnosis/Problem Admission Diagnosis/Problem Cellulitis Source of Information: Patient - History of Present Illness Initial Comments - Free Text/Narative: 70-year-old gentleman who presented with not feeling well. No specific Complaints. He went to work today but just was not feeling right. He came into the emergency room. He has a history of diabetes, hypertension, diabetic foot ulcer. - Related Data Allergies/Adverse Reactions: Allergies Allergy/AdvReac Type Severity Reaction Status Date / Time acetaminophen Allergy Nausea Verified 10/09/16 12:11 [From Tylenol-Codeine #3] codeine phosphate Allergy Nausea Verified 10/09/16 12:11 [From Tylenol-Codeine #3] lansoprazole [From Prevacid] Allergy Cannot Verified 10/09/16 12:11 Remember Home Medications: Home Meds metFORMIN [Glucophage XR] 500 mg PO DAILY 12/01/15 [History] Tamsulosin [Flomax] 1 tab PO BEDTIME 12/03/15 [History] Lisinopril [Prinivil] 5 mg PO DAILY 01/27/16 [History] Metoprolol Tartrate 25 mg PO BID 07/31/16 [History] Glimepiride [Amaryl] 1 mg PO WITHBREAKFAST 10/09/16 [History] Past Medical History HEENT History: Reports: Hard of Hearing, Impaired Vision Other HEENT History: wears glasses Cardiovascular History: Reports: Afib, Hypertension Respiratory History: Reports: None Gastrointestinal History: Reports: Pancreatitis, PUD, Other (See Below) Other Gastrointestinal History: ALCOHOLIC LIVER DISEASE. 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 Fracture to skull Neurological History: Reports: CVA Psychiatric History: Reports: Other (See Below) Other Psychiatric History: CHRONIC ALCOHOLISM Endocrine/Metabolic History: Reports: Diabetes, Type II Other Endocrine/Metabolic History: diabetic ulcer and cellulitis right great toe Hematologic History: Reports: Other (See Below) Other Hematologic History: MRSA Immunologic History: Reports: None Oncologic (Cancer) History: Reports: None Dermatologic History: Reports: Other (See Below) Other Dermatologic History: CYST REMOVAL - VOICE BOX - Infectious Disease History Infectious Disease History: Reports: MRSA Other Infectious Disease History: HX of MRSA - Past Surgical History Head Surgeries/Procedures: Reports: Craniotomy Social & Family History - Family History Family Medical History: Noncontributory Neurological: Reports: Alzheimers Disease Oncologic: Reports: Other (See Below) Other Oncologic Family History: Father from cancer in bile ducts. - Tobacco Use Smoking Status *Q: Former Smoker Years of Tobacco use: 15 Packs/Tins Daily: 1.5 Used Tobacco, but Quit: Yes Month Tobacco Last Used: unknown Second Hand Smoke Exposure: No - Caffeine Use Caffeine Use: Reports: None - Alcohol Use Days Per Week of Alcohol Use: 7 Number of Drinks Per Day: 6 Total Drinks Per Week: 42 - Recreational Drug Use Recreational Drug Use: Yes Drug Use in Last 12 Months: Yes Recreational Drug Type: Reports: Marijuana/Hashish Other Recreational Drug Type: "couple times a week" Recreational Drug Use Frequency: Weekly Recreational Drug Last Use: "about four days ago" - Living Situation & Occupation Living situation: Reports: Alone Occupation: Employed H&P Review of Systems - Review of Systems: Review Of Systems: See Below General: Denies: Fever HEENT: Denies: Headaches Pulmonary: Denies: Shortness of Breath Cardiovascular: Denies: Chest Pain Gastrointestinal: Denies: Abdominal Pain Psychiatric: Denies: Confusion Exam - Exam Exam: See Below - Vital Signs Vital Signs: Last Vital Signs Temp 37.7 C 10/15/16 11:57 Pulse 76 10/15/16 11:57 Resp 20 10/15/16 11:57 BP 104/53 L 10/15/16 11:57 Pulse Ox 97 10/15/16 09:06 Weight: 102.058 kg - Exam Quality Assessment: No: Supplemental Oxygen General: Alert, Oriented Neck: Supple Lungs: Clear to Auscultation, Normal Respiratory Effort Cardiovascular: Regular Rate, Regular Rhythm GI/Abdominal Exam: Normal Bowel Sounds, Soft, Non-Tender Extremities: Other (Right first toe swollen, red, clean-based ulcer at the tip of the toe) - Patient Data Result Diagrams: 10/15/16 09:44 10/15/16 09:44 *Q Meaningful Use (ADM) - VTE *Q VTE Criteria *Q: - Stroke *Q Stroke Criteria *Q: - AMI *Q AMI Criteria *Q: - Problem List (1) Cellulitis of great toe, right SNOMED Code(s): 05876280 ICD Code: L03.031 - CELLULITIS OF RIGHT TOE Status: Acute Current Visit: Yes (2) Diabetes SNOMED Code(s): 27020536 ICD Code: E11.9 - TYPE 2 DIABETES MELLITUS WITHOUT COMPLICATIONS Status: Acute Current Visit: No Qualifiers: Diabetes mellitus type: type 2 Diabetes mellitus complication status: without complication Diabetes mellitus fci insulin use: without intermediate teacher use Qualified Code(s): E11.9 - Type 2 diabetes mellitus without complications (3) Diabetic foot ulcer SNOMED Code(s): 507193276 ICD Code: E11.621 - TYPE 2 DIABETES MELLITUS WITH FOOT ULCER; L97.509 - NON- PRESSURE CHRONIC ULCER OTH PRT UNSP FOOT W UNSP SEVERITY Status: Acute Current Visit: No Qualifiers: Diabetes mellitus type: type 2 Laterality: right Qualified Code(s): E11.621 - Type 2 diabetes mellitus with foot ulcer; L97.519 - Non-pressure chronic ulcer of other part of right foot with unspecified severity (4) Hypertension SNOMED Code(s): 32233886 ICD Code: I10 - ESSENTIAL (PRIMARY) HYPERTENSION Status: Acute Current Visit: No Qualifiers: Hypertension type: essential hypertension Qualified Code(s): I10 - Essential (primary) hypertension Problem List Initiated/Reviewed/Updated: Yes Orders Last 24hrs: Active Orders 24 hr Category Date Time Status Patient Status [ADT] Routine ADT 10/15/16 11:36 Active Antiembolic Devices [RC] PER UNIT ROUTINE Care 10/15/16 11:38 Active Blood Glucose Check, Bedside [RC] QIDACANDBED Care 10/15/16 11:35 Active Glucose [Blood Glucose Check, Bedside] [RC] QIDACANDBED Care 10/15/16 11:43 Inactive Oxygen Therapy [RC] PRN Care 10/15/16 11:36 Active Up ad Sharon [RC] ASDIRECTED Care 10/15/16 11:35 Active VTE/DVT Education [RC] PER UNIT ROUTINE Care 10/15/16 11:36 Active Vital Signs [RC] Q4H Care 10/15/16 11:36 Active Consistent Carbohydrate Diet [DIET] Diet 10/15/16 Lunch Active BASIC METABOLIC PANEL,BMP [CHEM] AM Lab 10/16/16 05:15 Ordered CBC WITH AUTO DIFF [HEME] AM Lab 10/16/16 05:15 Ordered Acetaminophen [Tylenol] Med 10/15/16 11:35 Active 650 mg PO Q4H PRN Docusate Sodium [Colace] Med 10/15/16 11:35 Active 100 mg PO BID PRN Glimepiride [Amaryl] Med 10/16/16 08:00 Active 1 mg PO WITHBREAKFAST Heparin Sodium Med 10/15/16 14:00 Active 5,000 units SUBCUT Q8HR Ibuprofen [Motrin] Med 10/15/16 11:35 Active 400 mg PO Q6H PRN Insulin Aspart [NovoLOG] Med 10/15/16 17:00 Active See Protocol SUBCUT TIDAC Lisinopril [Prinivil] Med 10/16/16 09:00 Active 5 mg PO DAILY Metoprolol Tartrate [Lopressor] Med 10/15/16 21:00 Active 25 mg PO BID NS + KCl 20mEq/L [Normal Saline with 20 mEq KCl] 1,000 Med 10/15/16 11:45 Active ml IV ASDIRECTED Ondansetron [Zofran ODT] Med 10/15/16 11:35 Active 4 mg PO Q6H PRN Piperacillin/Tazobactam [Zosyn] 3.375 gm Med 10/15/16 20:00 Active Sodium Chloride 0.9% [Normal Saline] 100 ml IV Q8H Tamsulosin [Flomax] Med 10/15/16 21:00 Active 0.4 mg PO BEDTIME Zolpidem [Ambien] Med 10/15/16 11:35 Active 5 mg PO BEDTIME PRN oxyCODONE Med 10/15/16 11:35 Active 5 mg PO Q4H PRN Antiembolic Hose [OM.PC] Per Unit Routine Oth 10/15/16 11:37 Ordered Resuscitation Status Routine Resus Stat 10/15/16 11:35 Ordered Medication Orders Acetaminophen (Tylenol) 650 mg PO Q4H PRN PRN Reason: Pain (Mild 1-3)/fever Docusate Sodium (Colace) 100 mg PO BID PRN PRN Reason: Constipation Glimepiride (Amaryl) 1 mg PO WITHBREAKFAST TARA Heparin Sodium (Porcine) (Heparin Sodium) 5,000 units SUBCUT Q8HR TARA Potassium Chloride/Sodium Chloride (Normal Saline With 20 Meq Kcl) 1,000 mls @ 100 mls/hr IV ASDIRECTED TARA Piperacillin Sod/Tazobactam (Sod 3.375 gm/ Sodium Chloride) 100 mls @ 200 mls/ hr IV Q8H TARA Ibuprofen (Motrin) 400 mg PO Q6H PRN PRN Reason: Pain (mild 1-3) Insulin Aspart (Novolog) 0 unit SUBCUT TIDAC TARA PRN Reason: Protocol Lisinopril (Prinivil) 5 mg PO DAILY TARA Metoprolol Tartrate (Lopressor) 25 mg PO BID TARA Ondansetron HCl (Zofran Odt) 4 mg PO Q6H PRN PRN Reason: nausea, able to take PO Oxycodone HCl (Oxycodone) 5 mg PO Q4H PRN PRN Reason: Pain (moderate 4-6) Tamsulosin HCl (Flomax) 0.4 mg PO BEDTIME TARA Zolpidem Tartrate (Ambien) 5 mg PO BEDTIME PRN PRN Reason: Sleep Assessment/Plan Comment:: 70-year-old gentleman who presented with not feeling well. No specific Complaints. He has a history of diabetes, hypertension, diabetic foot ulcer. The diabetic foot ulcer on the right great toe has been present for months. Has been working with podiatry. There is no associated pain. Redness and swelling noted in the emergency room but the patient did not notice it at home. He denies shortness of breath, chest pain. He did not notice fever at home. 1. Cellulitis of the right first toe with diabetic foot ulcer There is no significant drainage. I do not think at this point it requires surgical intervention. Obtain blood cultures Treat with IV antibiotic with Zosyn provide on anaerobe coverage. 2. Diabetes we will hold the metformin continue glimepiride Use supplemental insulin as needed 3. Hypertension Treat with metoprolol, lisinopril Monitor blood pressure and adjust as needed 4. DVT prophylaxis will be with subcutaneous heparin
[2016-10-15] MEDS: NS + KCl 20mEq/L 1,000 ML IV SCH (15:16)
[2016-10-15] MEDS: Heparin Sodium 5,000 Units/ML Vial SUBCUT SCH ×2 (15:16→22:34)
[2016-10-15] MEDS ORDERED: Insulin Aspart 100 Units/ML 3 ML Pen SUBCUT ONE ×2 (17:23→22:45)
[2016-10-15] MEDS: Insulin Aspart 100 Units/ML 3 ML Pen SUBCUT SCH (17:32)
[2016-10-15] MEDS ORDERED: Piperacillin/Tazobactam 3.375 GM in Sodium Chloride 0.9% 100 ML IV SCH (19:00)
[2016-10-15] MEDS: Piperacillin/Tazobactam 3.375 GM in Sodium Chloride 0.9% 100 ML IV SCH (21:56)
[2016-10-15] MEDS: Tamsulosin 0.4 MG Cap.ER PO SCH (22:32)
[2016-10-15] MEDS: Metoprolol Tartrate 25 MG Tab PO SCH (22:33)
[2016-10-15] MEDS: Zolpidem 5 MG Tab PO PRN (22:34)
[2016-10-16] MEDS: Vancomycin 1.5 GM in Sodium Chloride 0.9% 500 ML IV SCH ×2 (01:27→10:49)
[2016-10-16] MEDS: NS + KCl 20mEq/L 1,000 ML IV SCH ×2 (04:28→20:44)
[2016-10-16] MEDS: Piperacillin/Tazobactam 3.375 GM in Sodium Chloride 0.9% 100 ML IV SCH ×3 (04:35→20:46)
[2016-10-16] MEDS: Heparin Sodium 5,000 Units/ML Vial SUBCUT SCH ×3 (06:07→23:20)
[2016-10-16] MEDS ORDERED: Glimepiride 2 MG Tab PO SCH (08:00)
[2016-10-16] MEDS ORDERED: Lisinopril 5 MG Tab PO SCH (09:00)
[2016-10-16] MEDS: Insulin Aspart 100 Units/ML 3 ML Pen SUBCUT SCH ×4 (09:51→18:56)
[2016-10-16] MEDS: Metoprolol Tartrate 25 MG Tab PO SCH ×2 (10:45→20:55)
[2016-10-16] MEDS: Bacitracin Oint 28.35 GM Tube TOP SCH ×3 (10:53→20:49)
--- NOTE | 2016-10-16 11:19 | PCM.PN ---
- General Info Date of Service: 10/16/16 Admission Dx/Problem (Free Text): Admission Diagnosis/Problem Admission Diagnosis/Problem Cellulitis Subjective Update: Overnight remained stable No significant pain in the toe. Noted to have 2 out of 2 positive blood culture for gram-positive cocci. Vancomycin started. Blood sugars were uncontrolled. Had a few hypotensive measurements. Functional Status: Reports: Pain Controlled, Tolerating Diet - Review of Systems General: Denies: Fever Pulmonary: Denies: Shortness of Breath Cardiovascular: Denies: Chest Pain - Patient Data Vitals - Most Recent: Last Vital Signs Temp 37.2 C 10/16/16 11:00 Pulse 69 10/16/16 11:00 Resp 20 10/16/16 11:00 BP 127/67 10/16/16 11:00 Pulse Ox 99 10/16/16 11:00 Weight - Most Recent: 102.058 kg I&O - Last 24 Hours: Intake & Output 10/15/16 10/16/16 10/16/16 22:59 06:59 14:59 Intake Total 550 2112 Output Total 1400 1000 Balance -850 1112 Lab Results Last 24 Hours: Laboratory Results - last 24 hr 10/15/16 10/15/16 10/16/16 Range/Units 16:52 21:06 06:10 WBC 12.5 H (5.0-10.0) 10^3/uL RBC 3.59 L (4.6-6.2) 10^6/uL Hgb 11.0 L (14.0-18.0) g/dL Hct 33.0 L (40.0-54.0) % MCV 91.9 (80-100) fL MCH 30.6 (27.0-34.0) pg MCHC 33.3 (33.0-35.0) g/dL Plt Count 111 L (150-450) 10^3/uL Neut % (Auto) 74.1 (42.2-75.2) % Lymph % (Auto) 9.3 L (20.5-50.1) % [place] % (Auto) 15.3 H (2-8) % Eos % (Auto) 1.0 (1.0-3.0) % Baso % (Auto) 0.3 (0.0-1.0) % Sodium (135-145) mmol/L Potassium (3.6-5.0) mmol/L Chloride (101-111) mmol/L Carbon Dioxide (21.0-31.0) mmol/L Anion Gap BUN (7-18) mg/dL Creatinine (0.6-1.3) mg/dL Est Cr Clr Drug Dosing mL/min Estimated GFR (MDRD) Glucose (74-105) mg/dL POC Glucose 419 H* 398 H (70-105) mg/dl Calcium (8.4-10.2) mg/dl 10/16/16 10/16/16 10/16/16 Range/Units 06:10 07:58 10:57 WBC (5.0-10.0) 10^3/uL RBC (4.6-6.2) 10^6/uL Hgb (14.0-18.0) g/dL Hct (40.0-54.0) % MCV (80-100) fL MCH (27.0-34.0) pg MCHC (33.0-35.0) g/dL Plt Count (150-450) 10^3/uL Neut % (Auto) (42.2-75.2) % Lymph % (Auto) (20.5-50.1) % [place] % (Auto) (2-8) % Eos % (Auto) (1.0-3.0) % Baso % (Auto) (0.0-1.0) % Sodium 135 (135-145) mmol/L Potassium 4.4 (3.6-5.0) mmol/L Chloride 109 (101-111) mmol/L Carbon Dioxide 18.0 L (21.0-31.0) mmol/L Anion Gap 12.4 BUN 28 H (7-18) mg/dL Creatinine 1.6 H (0.6-1.3) mg/dL Est Cr Clr Drug Dosing 57.13 mL/min Estimated GFR (MDRD) 43 Glucose 235 H (74-105) mg/dL POC Glucose 232 H 316 H (70-105) mg/dl Calcium 8.6 (8.4-10.2) mg/dl Med Orders - Current: Current Medications Acetaminophen (Tylenol) 650 mg PO Q4H PRN PRN Reason: Pain (Mild 1-3)/fever Bacitracin (Bacitracin Oint) 1 gm TOP TID [facility]ARA Last Admin: 10/16/16 10:53 Dose: 1 applic Docusate Sodium (Colace) 100 mg PO BID PRN PRN Reason: Constipation Glimepiride (Amaryl) 2 mg PO WITHBREAKFAST [facility] Heparin Sodium (Porcine) (Heparin Sodium) 5,000 units SUBCUT Q8HR [facility] Last Admin: 10/16/16 06:07 Dose: 5,000 units Potassium Chloride/Sodium Chloride (Normal Saline With 20 Meq Kcl) 1,000 mls @ 100 mls/hr IV ASDIRECTED [facility] Last Admin: 10/16/16 04:28 Dose: 100 mls/hr Piperacillin Sod/Tazobactam (Sod 3.375 gm/ Sodium Chloride) 100 mls @ 200 mls/ hr IV Q8H [facility] Last Infusion: 10/16/16 05:05 Dose: Infused Vancomycin HCl 1.5 gm/ Sodium (Chloride) 250 mls @ 166.667 mls/hr IV Q12H [facility] Insulin Aspart (Novolog) 0 unit SUBCUT TIDAC [facility] PRN Reason: Protocol Last Admin: 10/16/16 09:51 Dose: 4 units Metoprolol Tartrate (Lopressor) 25 mg PO BID [facility] Last Admin: 10/16/16 10:45 Dose: Not Given Ondansetron HCl (Zofran Odt) 4 mg PO Q6H PRN PRN Reason: nausea, able to take PO Oxycodone HCl (Oxycodone) 5 mg PO Q4H PRN PRN Reason: Pain (moderate 4-6) Tamsulosin HCl (Flomax) 0.4 mg PO BEDTIME [facility] Last Admin: 10/15/16 22:32 Dose: 0.4 mg Vancomycin HCl (Pharmacy To Dose - Vancomycin) 1 dose .XX ASDIRECTED [facility] Zolpidem Tartrate (Ambien) 5 mg PO BEDTIME PRN PRN Reason: Sleep Last Admin: 10/15/16 22:34 Dose: 5 mg Discontinued Medications Glimepiride (Amaryl) 1 mg PO WITHBREAKFAST [facility] Last Admin: 10/16/16 09:50 Dose: 1 mg Sodium Chloride (Normal Saline) 1,000 mls @ 250 mls/hr IV .BOLUS ONE Stop: 10/15/16 13:31 Last Admin: 10/15/16 09:50 Dose: 250 mls/hr Piperacillin Sod/Tazobactam (Sod 3.375 gm/ Sodium Chloride) 100 mls @ 200 mls/ hr IV ONETIME ONE Stop: 10/15/16 11:37 Last Admin: 10/15/16 11:26 Dose: 200 mls/hr Piperacillin Sod/Tazobactam (Sod 3.375 gm/ Sodium Chloride) 100 mls @ 200 mls/ hr IV .Q8H [facility] Vancomycin HCl 1.5 gm/ Sodium (Chloride) 500 mls @ 333.333 mls/hr IV Q12H [facility] Last Admin: 10/16/16 10:49 Dose: Not Given Vancomycin HCl 1.5 gm/ Sodium (Chloride) 250 mls @ 166.667 mls/hr IV Q12H [facility] Ibuprofen (Motrin) 400 mg PO Q6H PRN PRN Reason: Pain (mild 1-3) Last Admin: 10/16/16 03:17 Dose: 400 mg Insulin Aspart (Novolog) 14 unit SUBCUT ONETIME ONE Stop: 10/15/16 17:24 Last Admin: 10/15/16 17:35 Dose: 14 units Insulin Aspart (Novolog) 10 unit SUBCUT ONETIME ONE Stop: 10/15/16 22:46 Last Admin: 10/15/16 23:31 Dose: 10 units Lisinopril (Prinivil) 5 mg PO DAILY [facility] Last Admin: 10/16/16 10:48 Dose: Not Given - Exam General: Alert, Oriented Neck: Supple Lungs: Clear to Auscultation, Normal Respiratory Effort Cardiovascular: Regular Rate, Regular Rhythm GI/Abdominal Exam: Normal Bowel Sounds, Soft, Non-Tender Extremities: Other (Right toe ulcer with swelling and redness of the toe continued.) - Problem List & Annotations (1) Cellulitis of great toe, right SNOMED Code(s): 51959787 Code(s): L03.031 - CELLULITIS OF RIGHT TOE Status: Acute Current Visit: Yes (2) Diabetes SNOMED Code(s): 99199242 Code(s): E11.9 - TYPE 2 DIABETES MELLITUS WITHOUT COMPLICATIONS Status: Acute Current Visit: No Qualifiers: Diabetes mellitus type: type 2 Diabetes mellitus complication status: without complication Diabetes mellitus intermediate teacher insulin use: without intermediate teacher use Qualified Code(s): E11.9 - Type 2 diabetes mellitus without complications (3) Diabetic foot ulcer SNOMED Code(s): 588409323 Code(s): E11.621 - TYPE 2 DIABETES MELLITUS WITH FOOT ULCER; L97.509 - NON- PRESSURE CHRONIC ULCER OTH PRT UNSP FOOT W UNSP SEVERITY Status: Acute Current Visit: No Qualifiers: Diabetes mellitus type: type 2 Laterality: right Qualified Code(s): E11.621 - Type 2 diabetes mellitus with foot ulcer; L97.519 - Non-pressure chronic ulcer of other part of right foot with unspecified severity (4) Hypertension SNOMED Code(s): 12227302 Code(s): I10 - ESSENTIAL (PRIMARY) HYPERTENSION Status: Acute Current Visit: No Qualifiers: Hypertension type: essential hypertension Qualified Code(s): I10 - Essential (primary) hypertension (5) Sepsis affecting skin SNOMED Code(s): 465473813 Code(s): A41.9 - SEPSIS, UNSPECIFIED ORGANISM Status: Acute Current Visit : Yes - Problem List Review Problem List Initiated/Reviewed/Updated: Yes - My Orders Last 24 Hours: My Active Orders 10/15/16 11:43 Glucose [Blood Glucose Check, Bedside] [RC] QIDACANDBED 10/15/16 17:00 Insulin Aspart [NovoLOG] See Protocol SUBCUT TIDAC 10/15/16 20:00 Piperacillin/Tazobactam [Zosyn] 3.375 gm Sodium Chloride 0.9% [Normal Saline] 100 ml IV Q8H 10/15/16 21:45 Vancomycin Pharmacy to Dose [Pharmacy to Dose - Vancomycin] 1 dose .XX ASDIRECTED 10/16/16 09:54 Wound Care [RC] Q12H 10/16/16 10:00 Bacitracin [Bacitracin Oint] 1 gm TOP TID 10/16/16 11:00 Vancomycin 1.5 gm Sodium Chloride 0.9% [Normal Saline] 250 ml IV Q12H 10/17/16 08:00 Glimepiride [Amaryl] 2 mg PO WITHBREAKFAST - Plan Plan:: 70-year-old gentleman who presented with not feeling well. No specific Complaints. He has a history of diabetes, hypertension, diabetic foot ulcer. The diabetic foot ulcer on the right great toe has been present for months. Has been working with podiatry. There is no associated pain. Redness and swelling noted in the emergency room but the patient did not notice it at home. He denies shortness of breath, chest pain. He did not notice fever at home. 1. Sepsis with gram-positive bacteremia due to Cellulitis of the right first toe with diabetic foot ulcer There is no significant drainage. I do not think at this point it requires surgical intervention. We will follow blood cultures Repeat blood cultures tomorrow Treat with IV antibiotic with vancomycin and Zosyn. Will obtain MRI of the toe to evaluate for osteomyelitis The patient will need prolonged IV antibiotic course Plan for PICC line placement when blood cultures are negative, likely Wednesday 2. Diabetes Uncontrolled we will hold the metformin Increase glimepiride Use supplemental insulin as needed 3. Hypertension Had a few lower blood pressure reading, has acute renal failure Treat with metoprolol, Stop lisinopril Monitor blood pressure and adjust as needed 4. Acute renal failure likely due to infection, hypotension Will stop lisinopril, Motrin Adjust vancomycin dose Continue IV fluid 5. DVT prophylaxis will be with subcutaneous heparin
[2016-10-16] MEDS: Tamsulosin 0.4 MG Cap.ER PO SCH (20:47)
[2016-10-16] MEDS: Zolpidem 5 MG Tab PO PRN (20:48)
[2016-10-17] MEDS: Piperacillin/Tazobactam 3.375 GM in Sodium Chloride 0.9% 100 ML IV SCH ×3 (04:03→20:20)
[2016-10-17] MEDS: Heparin Sodium 5,000 Units/ML Vial SUBCUT SCH ×3 (05:58→22:00)
[2016-10-17] MEDS: oxyCODONE 5 MG Tab PO PRN ×2 (06:19→14:04)
[2016-10-17] MEDS: Bacitracin Oint 28.35 GM Tube TOP SCH ×3 (08:11→22:12)
[2016-10-17] MEDS: Glimepiride 2 MG Tab PO SCH (08:11)
[2016-10-17] MEDS: Insulin Aspart 100 Units/ML 3 ML Pen SUBCUT SCH ×3 (09:18→17:22)
[2016-10-17] MEDS: Sodium Bicarbonate 650 MG Tab PO SCH ×2 (09:40→22:02)
[2016-10-17] MEDS: Metoprolol Tartrate 25 MG Tab PO SCH ×2 (09:42→22:02)
--- NOTE | 2016-10-17 11:14 | PCM.PN ---
- General Info Date of Service: 10/17/16 Admission Dx/Problem (Free Text): Admission Diagnosis/Problem Admission Diagnosis/Problem Cellulitis Subjective Update: Overnight remained stable No significant pain in the toe. Noted to have 2 out of 2 positive blood culture for gram-positive cocci further identification and sensitivity is still pending Vancomycin and Zosyn started. Remained on IV fluids - Review of Systems General: Reports: Malaise. Denies: Fever, Chills Pulmonary: Denies: Shortness of Breath Cardiovascular: Denies: Chest Pain Gastrointestinal: Denies: Abdominal Pain Genitourinary: Denies: Dysuria Neurological: Denies: Confusion - Patient Data Vitals - Most Recent: Last Vital Signs Temp 37.3 C 10/17/16 07:00 Pulse 64 10/17/16 09:42 Resp 20 10/17/16 07:00 BP 105/59 L 10/17/16 09:42 Pulse Ox 97 10/17/16 07:00 Weight - Most Recent: 102.058 kg I&O - Last 24 Hours: Intake & Output 10/16/16 10/17/16 10/17/16 22:59 06:59 14:59 Intake Total 1036 550 873 Output Total 650 Balance 1036 -100 873 Lab Results Last 24 Hours: Laboratory Results - last 24 hr 10/16/16 10/16/16 10/16/16 Range/Units 16:52 18:56 23:28 WBC (5.0-10.0) 10^3/uL RBC (4.6-6.2) 10^6/uL Hgb (14.0-18.0) g/dL Hct (40.0-54.0) % MCV (80-100) fL MCH (27.0-34.0) pg MCHC (33.0-35.0) g/dL Plt Count (150-450) 10^3/uL Neut % (Auto) (42.2-75.2) % Lymph % (Auto) (20.5-50.1) % [place] % (Auto) (2-8) % Eos % (Auto) (1.0-3.0) % Baso % (Auto) (0.0-1.0) % Sodium (135-145) mmol/L Potassium (3.6-5.0) mmol/L Chloride (101-111) mmol/L Carbon Dioxide (21.0-31.0) mmol/L Anion Gap BUN (7-18) mg/dL Creatinine (0.6-1.3) mg/dL Est Cr Clr Drug Dosing mL/min Estimated GFR (MDRD) Glucose (74-105) mg/dL POC Glucose 273 H 251 H 194 H (70-105) mg/dl Calcium (8.4-10.2) mg/dl 10/17/16 10/17/16 10/17/16 Range/Units 06:15 06:15 07:41 WBC 9.7 (5.0-10.0) 10^3/uL RBC 3.68 L (4.6-6.2) 10^6/uL Hgb 11.3 L (14.0-18.0) g/dL Hct 33.7 L (40.0-54.0) % MCV 91.6 (80-100) fL MCH 30.7 (27.0-34.0) pg MCHC 33.5 (33.0-35.0) g/dL Plt Count 126 L (150-450) 10^3/uL Neut % (Auto) 55.3 (42.2-75.2) % Lymph % (Auto) 18.1 L (20.5-50.1) % [place] % (Auto) 22.0 H (2-8) % Eos % (Auto) 4.1 H (1.0-3.0) % Baso % (Auto) 0.5 (0.0-1.0) % Sodium 137 (135-145) mmol/L Potassium 4.6 (3.6-5.0) mmol/L Chloride 111 (101-111) mmol/L Carbon Dioxide 17.0 L (21.0-31.0) mmol/L Anion Gap 13.6 BUN 33 H (7-18) mg/dL Creatinine 2.6 H (0.6-1.3) mg/dL Est Cr Clr Drug Dosing 35.15 mL/min Estimated GFR (MDRD) 25 Glucose 128 H (74-105) mg/dL POC Glucose 142 H (70-105) mg/dl Calcium 8.5 (8.4-10.2) mg/dl 10/17/16 Range/Units 10:44 WBC (5.0-10.0) 10^3/uL RBC (4.6-6.2) 10^6/uL Hgb (14.0-18.0) g/dL Hct (40.0-54.0) % MCV (80-100) fL MCH (27.0-34.0) pg MCHC (33.0-35.0) g/dL Plt Count (150-450) 10^3/uL Neut % (Auto) (42.2-75.2) % Lymph % (Auto) (20.5-50.1) % [place] % (Auto) (2-8) % Eos % (Auto) (1.0-3.0) % Baso % (Auto) (0.0-1.0) % Sodium (135-145) mmol/L Potassium (3.6-5.0) mmol/L Chloride (101-111) mmol/L Carbon Dioxide (21.0-31.0) mmol/L Anion Gap BUN (7-18) mg/dL Creatinine (0.6-1.3) mg/dL Est Cr Clr Drug Dosing mL/min Estimated GFR (MDRD) Glucose (74-105) mg/dL POC Glucose 226 H (70-105) mg/dl Calcium (8.4-10.2) mg/dl Med Orders - Current: Current Medications Bacitracin (Bacitracin Oint) 1 gm TOP TID [facility] Last Admin: 10/17/16 08:11 Dose: 1 applic Docusate Sodium (Colace) 100 mg PO BID PRN PRN Reason: Constipation Glimepiride (Amaryl) 2 mg PO WITHBREAKFAST [facility] Last Admin: 10/17/16 08:11 Dose: 2 mg Heparin Sodium (Porcine) (Heparin Sodium) 5,000 units SUBCUT Q8HR [facility] Last Admin: 10/17/16 05:58 Dose: 5,000 units Potassium Chloride/Sodium Chloride (Normal Saline With 20 Meq Kcl) 1,000 mls @ 100 mls/hr IV ASDIRECTED [facility] Last Admin: 10/16/16 20:44 Dose: 100 mls/hr Piperacillin Sod/Tazobactam (Sod 3.375 gm/ Sodium Chloride) 100 mls @ 200 mls/ hr IV Q8H [facility] Last Infusion: 10/17/16 04:46 Dose: Infused Insulin Aspart (Novolog) 0 unit SUBCUT TIDAC [facility] PRN Reason: Protocol Last Admin: 10/17/16 09:18 Dose: Not Given Metoprolol Tartrate (Lopressor) 25 mg PO BID [facility] Last Admin: 10/17/16 09:42 Dose: 25 mg Ondansetron HCl (Zofran Odt) 4 mg PO Q6H PRN PRN Reason: nausea, able to take PO Oxycodone HCl (Oxycodone) 5 mg PO Q4H PRN PRN Reason: Pain (moderate 4-6) Last Admin: 10/17/16 06:19 Dose: 5 mg Sodium Bicarbonate (Sodium Bicarbonate) 650 mg PO BID [facility] Stop: 10/18/16 21:01 Last Admin: 10/17/16 09:40 Dose: 650 mg Tamsulosin HCl (Flomax) 0.4 mg PO BEDTIME [facility] Last Admin: 10/16/16 20:47 Dose: 0.4 mg Zolpidem Tartrate (Ambien) 5 mg PO BEDTIME PRN PRN Reason: Sleep Last Admin: 10/16/16 20:48 Dose: 5 mg Discontinued Medications Acetaminophen (Tylenol) 650 mg PO Q4H PRN PRN Reason: Pain (Mild 1-3)/fever Glimepiride (Amaryl) 1 mg PO WITHBREAKFAST [facility] Last Admin: 10/16/16 09:50 Dose: 1 mg Sodium Chloride (Normal Saline) 1,000 mls @ 250 mls/hr IV .BOLUS ONE Stop: 10/15/16 13:31 Last Admin: 10/15/16 09:50 Dose: 250 mls/hr Piperacillin Sod/Tazobactam (Sod 3.375 gm/ Sodium Chloride) 100 mls @ 200 mls/ hr IV ONETIME ONE Stop: 10/15/16 11:37 Last Admin: 10/15/16 11:26 Dose: 200 mls/hr Piperacillin Sod/Tazobactam (Sod 3.375 gm/ Sodium Chloride) 100 mls @ 200 mls/ hr IV .Q8H [facility] Vancomycin HCl 1.5 gm/ Sodium (Chloride) 500 mls @ 333.333 mls/hr IV Q12H [facility] Last Admin: 10/16/16 10:49 Dose: Not Given Vancomycin HCl 1.5 gm/ Sodium (Chloride) 250 mls @ 166.667 mls/hr IV Q12H [facility] Vancomycin HCl 1.5 gm/ Sodium (Chloride) 250 mls @ 166.667 mls/hr IV Q12H [facility] Last Admin: 10/16/16 23:17 Dose: 166.667 mls/hr Ibuprofen (Motrin) 400 mg PO Q6H PRN PRN Reason: Pain (mild 1-3) Last Admin: 10/16/16 03:17 Dose: 400 mg Insulin Aspart (Novolog) 14 unit SUBCUT ONETIME ONE Stop: 10/15/16 17:24 Last Admin: 10/15/16 17:35 Dose: 14 units Insulin Aspart (Novolog) 10 unit SUBCUT ONETIME ONE Stop: 10/15/16 22:46 Last Admin: 10/15/16 23:31 Dose: 10 units Lisinopril (Prinivil) 5 mg PO DAILY [facility] Last Admin: 10/16/16 10:48 Dose: Not Given Vancomycin HCl (Pharmacy To Dose - Vancomycin) 1 dose .XX ASDIRECTED [facility] - Exam General: Alert, Oriented Neck: Supple Lungs: Clear to Auscultation, Normal Respiratory Effort Cardiovascular: Regular Rate, Regular Rhythm Extremities: Other (great toe ulcer on the right foot, the swelling has improved , redness has improved) Skin: Warm Neurological: Other (Decrease sensation in the feet) - Problem List & Annotations (1) Cellulitis of great toe, right SNOMED Code(s): 46179009 Code(s): L03.031 - CELLULITIS OF RIGHT TOE Status: Acute Current Visit: Yes (2) Diabetes SNOMED Code(s): 79356000 Code(s): E11.9 - TYPE 2 DIABETES MELLITUS WITHOUT COMPLICATIONS Status: Acute Current Visit: No Qualifiers: Diabetes mellitus type: type 2 Diabetes mellitus complication status: without complication Diabetes mellitus predatory animal exterminator insulin use: without predatory animal exterminator use Qualified Code(s): E11.9 - Type 2 diabetes mellitus without complications (3) Diabetic foot ulcer SNOMED Code(s): 135623893 Code(s): E11.621 - TYPE 2 DIABETES MELLITUS WITH FOOT ULCER; L97.509 - NON- PRESSURE CHRONIC ULCER OTH PRT UNSP FOOT W UNSP SEVERITY Status: Acute Current Visit: No Qualifiers: Diabetes mellitus type: type 2 Laterality: right (4) Hypertension SNOMED Code(s): 23516864 Code(s): I10 - ESSENTIAL (PRIMARY) HYPERTENSION Status: Acute Current Visit: No Qualifiers: Hypertension type: essential hypertension Qualified Code(s): I10 - Essential (primary) hypertension (5) Sepsis affecting skin SNOMED Code(s): 311007583 Code(s): A41.9 - SEPSIS, UNSPECIFIED ORGANISM Status: Acute Current Visit : Yes - Problem List Review Problem List Initiated/Reviewed/Updated: Yes - My Orders Last 24 Hours: My Active Orders 10/17/16 08:00 Glimepiride [Amaryl] 2 mg PO WITHBREAKFAST 10/17/16 09:15 Sodium Bicarbonate 650 mg PO BID 10/17/16 11:12 CULTURE BLOOD [BC] Routine CULTURE BLOOD [BC] Routine Blood Culture x2 Reflex Set [OM.PC] PER UNIT ROUTINE 10/18/16 05:15 BASIC METABOLIC PANEL,BMP [CHEM] AM CBC WITH AUTO DIFF [HEME] AM - Plan Plan:: 70-year-old gentleman who presented with not feeling well. No specific Complaints. He has a history of diabetes, hypertension, diabetic foot ulcer. The diabetic foot ulcer on the right great toe has been present for months. Has been working with podiatry. There is no associated pain. Redness and swelling noted in the emergency room but the patient did not notice it at home. 1. Sepsis with gram-positive bacteremia due to Cellulitis of the right first toe with diabetic foot ulcer MRI showed osteomyelitis. There is no significant drainage. I do not think at this point it requires urgent surgical intervention. The patient would like to avoid amputation Blood cultures:10/15: Gram positive cocci Repeat blood cultures today Treat with IV antibiotic with Zosyn. Stop vancomycin due to acute renal failure The patient will need prolonged IV antibiotic course Plan for PICC line placement when blood cultures are negative, likely Wednesday 2. Diabetes Uncontrolled we will hold the metformin Increased glimepiride Use supplemental insulin as needed 3. Hypertension Had a few lower blood pressure reading, has acute renal failure Treat with metoprolol, Stop lisinopril Monitor blood pressure and adjust as needed 4. Acute renal failure likely due to infection, hypotension With associated metabolic acidosis Stopped lisinopril, Motrin Will stop vancomycin Add sodium bicarbonate Continue IV fluid Recheck electrolytes and renal function test in the morning 5. DVT prophylaxis will be with subcutaneous heparin
[2016-10-17] MEDS: NS + KCl 20mEq/L 1,000 ML IV SCH (13:42)
[2016-10-17] MEDS: Tamsulosin 0.4 MG Cap.ER PO SCH (22:02)
[2016-10-17] MEDS: Zolpidem 5 MG Tab PO PRN (22:03)
[2016-10-18] MEDS: NS + KCl 20mEq/L 1,000 ML IV SCH (02:42)
[2016-10-18] MEDS: Piperacillin/Tazobactam 3.375 GM in Sodium Chloride 0.9% 100 ML IV SCH (03:58)
[2016-10-18] MEDS: Heparin Sodium 5,000 Units/ML Vial SUBCUT SCH ×3 (06:02→21:31)
[2016-10-18] MEDS: oxyCODONE 5 MG Tab PO PRN (06:08)
[2016-10-18] MEDS: Metoprolol Tartrate 25 MG Tab PO SCH ×2 (08:33→21:30)
[2016-10-18] MEDS: Sodium Bicarbonate 650 MG Tab PO SCH ×3 (08:35→21:30)
[2016-10-18] MEDS: Glimepiride 2 MG Tab PO SCH (08:35)
[2016-10-18] MEDS: Bacitracin Oint 28.35 GM Tube TOP SCH ×3 (08:36→21:38)
[2016-10-18] MEDS: Insulin Aspart 100 Units/ML 3 ML Pen SUBCUT SCH ×3 (08:36→18:11)
[2016-10-18] MEDS ORDERED: Furosemide 40 MG Tab PO ONE (09:38)
[2016-10-18] MEDS: Sodium Chloride 0.9% 1,000 ML IV SCH ×2 (09:52→21:28)
[2016-10-18] MEDS: cefTRIAXone 1 GM in Sodium Chloride 0.9% 50 ML IV SCH (10:12)
[2016-10-18] MEDS ORDERED: Sodium Polystyrene Sulfonate 15 GM/60 ML Susp 60 ML Bot PO ONE ×2 (11:04→16:12)
--- NOTE | 2016-10-18 11:10 | PCM.PN ---
- General Info Date of Service: 10/18/16 Admission Dx/Problem (Free Text): Admission Diagnosis/Problem Admission Diagnosis/Problem Cellulitis Subjective Update: Overnight remained stable No significant pain in the toe. No fever, no chills Vancomycin stopped. Remained on IV fluids, has good urine output No diarrhea Functional Status: Reports: Tolerating Diet - Review of Systems General: Denies: Fever, Weakness Pulmonary: Denies: Shortness of Breath Cardiovascular: Denies: Chest Pain Genitourinary: Denies: Dysuria Neurological: Denies: Confusion - Patient Data Vitals - Most Recent: Last Vital Signs Temp 37.0 C 10/18/16 07:00 Pulse 64 10/18/16 08:33 Resp 20 10/18/16 07:00 BP 117/69 10/18/16 08:33 Pulse Ox 95 10/18/16 07:00 Weight - Most Recent: 102.058 kg I&O - Last 24 Hours: Intake & Output 10/17/16 10/18/16 10/18/16 22:59 06:59 14:59 Intake Total 740 1600 608 Output Total 200 Balance 740 1400 608 Lab Results Last 24 Hours: Laboratory Results - last 24 hr 10/17/16 10/17/16 10/18/16 Range/Units 17:09 20:51 05:55 WBC 7.8 (5.0-10.0) 10^3/uL RBC 3.90 L (4.6-6.2) 10^6/uL Hgb 12.0 L (14.0-18.0) g/dL Hct 35.9 L (40.0-54.0) % MCV 92.1 (80-100) fL MCH 30.8 (27.0-34.0) pg MCHC 33.4 (33.0-35.0) g/dL Plt Count 142 L (150-450) 10^3/uL Neut % (Auto) 52.4 (42.2-75.2) % Lymph % (Auto) 23.3 (20.5-50.1) % [place] % (Auto) 18.9 H (2-8) % Eos % (Auto) 4.6 H (1.0-3.0) % Baso % (Auto) 0.8 (0.0-1.0) % Sodium (135-145) mmol/L Potassium (3.6-5.0) mmol/L Chloride (101-111) mmol/L Carbon Dioxide (21.0-31.0) mmol/L Anion Gap BUN (7-18) mg/dL Creatinine (0.6-1.3) mg/dL Est Cr Clr Drug Dosing mL/min Estimated GFR (MDRD) Glucose (74-105) mg/dL POC Glucose 212 H 244 H (70-105) mg/dl Calcium (8.4-10.2) mg/dl 10/18/16 10/18/16 10/18/16 Range/Units 05:55 07:48 10:48 WBC (5.0-10.0) 10^3/uL RBC (4.6-6.2) 10^6/uL Hgb (14.0-18.0) g/dL Hct (40.0-54.0) % MCV (80-100) fL MCH (27.0-34.0) pg MCHC (33.0-35.0) g/dL Plt Count (150-450) 10^3/uL Neut % (Auto) (42.2-75.2) % Lymph % (Auto) (20.5-50.1) % [place] % (Auto) (2-8) % Eos % (Auto) (1.0-3.0) % Baso % (Auto) (0.0-1.0) % Sodium 139 (135-145) mmol/L Potassium 5.2 H (3.6-5.0) mmol/L Chloride 112 H (101-111) mmol/L Carbon Dioxide 17.0 L (21.0-31.0) mmol/L Anion Gap 15.2 BUN 34 H (7-18) mg/dL Creatinine 2.8 H (0.6-1.3) mg/dL Est Cr Clr Drug Dosing 32.64 mL/min Estimated GFR (MDRD) 23 Glucose 143 H (74-105) mg/dL POC Glucose 119 H 103 (70-105) mg/dl Calcium 8.6 (8.4-10.2) mg/dl Med Orders - Current: Current Medications Bacitracin (Bacitracin Oint) 1 gm TOP TID [facility] Last Admin: 10/18/16 08:36 Dose: 1 applic Docusate Sodium (Colace) 100 mg PO BID PRN PRN Reason: Constipation Glimepiride (Amaryl) 2 mg PO WITHBREAKFAST [facility] Last Admin: 10/18/16 08:35 Dose: 2 mg Heparin Sodium (Porcine) (Heparin Sodium) 5,000 units SUBCUT Q8HR [facility] Last Admin: 10/18/16 06:02 Dose: 5,000 units Sodium Chloride (Normal Saline) 1,000 mls @ 125 mls/hr IV ASDIRECTED [facility] Last Admin: 10/18/16 09:52 Dose: 125 mls/hr Ceftriaxone Sodium 1 gm/ (Sodium Chloride) 50 mls @ 100 mls/hr IV Q24H [facility] Last Admin: 10/18/16 10:12 Dose: 100 mls/hr Insulin Aspart (Novolog) 0 unit SUBCUT TIDAC [facility] PRN Reason: Protocol Last Admin: 10/18/16 11:00 Dose: Not Given Metoprolol Tartrate (Lopressor) 25 mg PO BID [facility] Last Admin: 10/18/16 08:33 Dose: 25 mg Ondansetron HCl (Zofran Odt) 4 mg PO Q6H PRN PRN Reason: nausea, able to take PO Oxycodone HCl (Oxycodone) 5 mg PO Q4H PRN PRN Reason: Pain (moderate 4-6) Last Admin: 10/18/16 06:08 Dose: 5 mg Sodium Bicarbonate (Sodium Bicarbonate) 650 mg PO TID [facility] Stop: 10/19/16 21:01 Sodium Polystyrene Sulfonate (Kayexalate) 15 gm PO ONETIME ONE Stop: 10/18/16 11:05 Tamsulosin HCl (Flomax) 0.4 mg PO BEDTIME [facility] Last Admin: 10/17/16 22:02 Dose: 0.4 mg Zolpidem Tartrate (Ambien) 5 mg PO BEDTIME PRN PRN Reason: Sleep Last Admin: 10/17/16 22:03 Dose: 5 mg Discontinued Medications Acetaminophen (Tylenol) 650 mg PO Q4H PRN PRN Reason: Pain (Mild 1-3)/fever Furosemide (Lasix) 40 mg PO ONETIME ONE Stop: 10/18/16 09:39 Last Admin: 10/18/16 09:49 Dose: 40 mg Glimepiride (Amaryl) 1 mg PO WITHBREAKFAST [facility] Last Admin: 10/16/16 09:50 Dose: 1 mg Sodium Chloride (Normal Saline) 1,000 mls @ 250 mls/hr IV .BOLUS ONE Stop: 10/15/16 13:31 Last Admin: 10/15/16 09:50 Dose: 250 mls/hr Piperacillin Sod/Tazobactam (Sod 3.375 gm/ Sodium Chloride) 100 mls @ 200 mls/ hr IV ONETIME ONE Stop: 10/15/16 11:37 Last Admin: 10/15/16 11:26 Dose: 200 mls/hr Piperacillin Sod/Tazobactam (Sod 3.375 gm/ Sodium Chloride) 100 mls @ 200 mls/ hr IV .Q8H [facility] Potassium Chloride/Sodium Chloride (Normal Saline With 20 Meq Kcl) 1,000 mls @ 100 mls/hr IV ASDIRECTED [facility] Last Infusion: 10/18/16 09:50 Dose: 100 mls/hr Piperacillin Sod/Tazobactam (Sod 3.375 gm/ Sodium Chloride) 100 mls @ 200 mls/ hr IV Q8H [facility] Last Infusion: 10/18/16 05:24 Dose: Infused Vancomycin HCl 1.5 gm/ Sodium (Chloride) 500 mls @ 333.333 mls/hr IV Q12H [facility] Last Admin: 10/16/16 10:49 Dose: Not Given Vancomycin HCl 1.5 gm/ Sodium (Chloride) 250 mls @ 166.667 mls/hr IV Q12H [facility] Vancomycin HCl 1.5 gm/ Sodium (Chloride) 250 mls @ 166.667 mls/hr IV Q12H [facility] Last Admin: 10/16/16 23:17 Dose: 166.667 mls/hr Ibuprofen (Motrin) 400 mg PO Q6H PRN PRN Reason: Pain (mild 1-3) Last Admin: 10/16/16 03:17 Dose: 400 mg Insulin Aspart (Novolog) 14 unit SUBCUT ONETIME ONE Stop: 10/15/16 17:24 Last Admin: 10/15/16 17:35 Dose: 14 units Insulin Aspart (Novolog) 10 unit SUBCUT ONETIME ONE Stop: 10/15/16 22:46 Last Admin: 10/15/16 23:31 Dose: 10 units Lisinopril (Prinivil) 5 mg PO DAILY [facility] Last Admin: 10/16/16 10:48 Dose: Not Given Sodium Bicarbonate (Sodium Bicarbonate) 650 mg PO BID [facility] Stop: 10/20/16 21:01 Last Admin: 10/18/16 08:35 Dose: 650 mg Vancomycin HCl (Pharmacy To Dose - Vancomycin) 1 dose .XX ASDIRECTED [facility] - Exam General: Alert, Oriented Neck: Supple Lungs: Clear to Auscultation, Normal Respiratory Effort Cardiovascular: Regular Rate, Regular Rhythm GI/Abdominal Exam: Normal Bowel Sounds, Soft, Non-Tender Extremities: No Pedal Edema, Other (Right foot first toe swollen still redness present) Skin: Warm, Dry Wound/Incisions: Healing Well, Other (On the bottom of the right first toe clear based ulcer present) Neurological: No New Focal Deficit Psy/Mental Status: Alert, Normal Affect, Normal Mood - Problem List & Annotations (1) Cellulitis of great toe, right SNOMED Code(s): 27574694 Code(s): L03.031 - CELLULITIS OF RIGHT TOE Status: Acute Current Visit: Yes (2) Diabetes SNOMED Code(s): 21548154 Code(s): E11.9 - TYPE 2 DIABETES MELLITUS WITHOUT COMPLICATIONS Status: Acute Current Visit: No Qualifiers: Diabetes mellitus type: type 2 Diabetes mellitus complication status: without complication Diabetes mellitus intermediate insulin use: without terminal block assembler use Qualified Code(s): E11.9 - Type 2 diabetes mellitus without complications (3) Diabetic foot ulcer SNOMED Code(s): 805052773 Code(s): E11.621 - TYPE 2 DIABETES MELLITUS WITH FOOT ULCER; L97.509 - NON- PRESSURE CHRONIC ULCER OTH PRT UNSP FOOT W UNSP SEVERITY Status: Acute Current Visit: No Qualifiers: Diabetes mellitus type: type 2 Laterality: right (4) Hypertension SNOMED Code(s): 73509032 Code(s): I10 - ESSENTIAL (PRIMARY) HYPERTENSION Status: Acute Current Visit: No Qualifiers: Hypertension type: essential hypertension Qualified Code(s): I10 - Essential (primary) hypertension (5) Sepsis affecting skin SNOMED Code(s): 075623427 Code(s): A41.9 - SEPSIS, UNSPECIFIED ORGANISM Status: Acute Current Visit : Yes (6) Acute renal failure SNOMED Code(s): 71137238 Code(s): N17.9 - ACUTE KIDNEY FAILURE, UNSPECIFIED Status: Acute Current Visit: Yes (7) Hyperkalemia SNOMED Code(s): 56452172 Code(s): E87.5 - HYPERKALEMIA Status: Acute Current Visit: Yes - Problem List Review Problem List Initiated/Reviewed/Updated: Yes - My Orders Last 24 Hours: My Active Orders 10/17/16 11:12 Blood Culture x2 Reflex Set [OM.PC] PER UNIT ROUTINE 10/17/16 11:20 CULTURE BLOOD [BC] Routine 10/17/16 11:25 CULTURE BLOOD [BC] Routine 10/18/16 09:00 cefTRIAXone [Rocephin] 1 gm Sodium Chloride 0.9% [Normal Saline] 50 ml IV Q24H 10/18/16 09:45 Sodium Chloride 0.9% [Normal Saline] 1,000 ml IV ASDIRECTED 10/18/16 11:04 Sodium Polystyrene Sulfonate [Kayexalate] 15 gm PO ONETIME ONE 10/18/16 14:00 Sodium Bicarbonate 650 mg PO TID 10/18/16 15:00 BASIC METABOLIC PANEL,BMP [CHEM] Routine 10/19/16 05:15 BASIC METABOLIC PANEL,BMP [CHEM] AM CBC WITH AUTO DIFF [HEME] AM - Plan Plan:: 70-year-old gentleman who presented with not feeling well. No specific Complaints. He has a history of diabetes, hypertension, diabetic foot ulcer. The diabetic foot ulcer on the right great toe has been present for months. Has been working with podiatry. There is no associated pain. Redness and swelling noted in the emergency room but the patient did not notice it at home. 1. Sepsis with gram-positive bacteremia due to Cellulitis of the right first toe with diabetic foot ulcer MRI showed osteomyelitis. There is no significant drainage. I do not think at this point it requires urgent surgical intervention. The patient would like to avoid amputation Blood cultures: 10/15: Streptococcus agalactiae, sensitive to penicillins, fluoroquinolones 10/17: pending Treat with IV antibiotic Switch Zosyn to ceftriaxone once a day IV Stopped vancomycin due to acute renal failure The patient will need prolonged IV antibiotic course Plan for PICC line placement when blood cultures are negative, likely Wednesday 2. Diabetes Uncontrolled we will hold the metformin Increased glimepiride Use supplemental insulin as needed 3. Hypertension Had a few lower blood pressure reading, has acute renal failure Treat with metoprolol, Stopped lisinopril due to renal failure Monitor blood pressure and adjust as needed 4. Acute renal failure likely due to infection, hypotension With associated metabolic acidosis Stopped lisinopril, Motrin, vancomycin Continue sodium bicarbonate Continue IV fluid Hyperkalemia associated with acute renal failure We will increase sodium bicarbonate Change IV fluid to normal saline Give a dose of Lasix Give Kayexalate Recheck electrolytes and renal function test in the morning 5. DVT prophylaxis will be with subcutaneous heparin
[2016-10-18] MEDS ORDERED: Calcium Gluconate 10% 1 GM/10 ML SDV IVPUSH ONE (16:11)
[2016-10-18] MEDS ORDERED: 50% Dextrose in Water 50 ML Syringe IVPUSH ONE (16:12)
[2016-10-18] MEDS ORDERED: Insulin Regular, Human 100 Units/ML 3 ML Vial IV ONE (16:12)
[2016-10-18] MEDS ORDERED: Furosemide 40 MG/4 ML VIAL IVPUSH ONE (16:14)
[2016-10-18] MEDS ORDERED: Sodium Chloride 0.9% 500 ML IV SCH (16:15)
[2016-10-18] MEDS: Tamsulosin 0.4 MG Cap.ER PO SCH (21:30)
[2016-10-18] MEDS: Zolpidem 5 MG Tab PO PRN (21:31)
[2016-10-19] MEDS: Heparin Sodium 5,000 Units/ML Vial SUBCUT SCH ×3 (05:14→22:16)
[2016-10-19] MEDS: Sodium Chloride 0.9% 1,000 ML IV SCH ×2 (05:33→14:51)
[2016-10-19] MEDS: Metoprolol Tartrate 25 MG Tab PO SCH ×2 (09:49→22:17)
[2016-10-19] MEDS: Sodium Bicarbonate 650 MG Tab PO SCH ×3 (09:50→22:17)
[2016-10-19] MEDS: Glimepiride 2 MG Tab PO SCH (09:50)
[2016-10-19] MEDS: Bacitracin Oint 28.35 GM Tube TOP SCH ×3 (09:51→22:19)
[2016-10-19] MEDS: cefTRIAXone 1 GM in Sodium Chloride 0.9% 50 ML IV SCH (09:52)
[2016-10-19] MEDS: Insulin Aspart 100 Units/ML 3 ML Pen SUBCUT SCH ×3 (09:54→17:18)
--- NOTE | 2016-10-19 10:04 | PCM.PN ---
- General Info Date of Service: 10/19/16 Admission Dx/Problem (Free Text): Admission Diagnosis/Problem Admission Diagnosis/Problem Cellulitis Subjective Update: Overnight remained stable No significant pain in the toe. No fever, no chills Vancomycin stopped. Remained on IV fluids, has good urine output Has been receiving Kayexalate and had diarrhea after that. No abdominal pain. Functional Status: Reports: Pain Controlled - Review of Systems General: Denies: Fever Pulmonary: Denies: Shortness of Breath Cardiovascular: Denies: Chest Pain Gastrointestinal: Reports: Diarrhea (after kayexelate). Denies: Abdominal Pain Genitourinary: Denies: Dysuria Neurological: Denies: Confusion - Patient Data Vitals - Most Recent: Last Vital Signs Temp 37.3 C 10/18/16 23:00 Pulse 71 10/19/16 09:49 Resp 20 10/18/16 23:00 BP 149/83 H 10/19/16 09:49 Pulse Ox 99 10/18/16 23:00 Weight - Most Recent: 102.058 kg I&O - Last 24 Hours: Intake & Output 10/18/16 10/19/16 10/19/16 22:59 06:59 14:59 Intake Total 1688 1405 Output Total 1600 Balance 1688 -195 Lab Results Last 24 Hours: Laboratory Results - last 24 hr 10/18/16 10/18/16 10/18/16 Range/Units 10:48 15:04 16:58 WBC (5.0-10.0) 10^3/uL RBC (4.6-6.2) 10^6/uL Hgb (14.0-18.0) g/dL Hct (40.0-54.0) % MCV (80-100) fL MCH (27.0-34.0) pg MCHC (33.0-35.0) g/dL Plt Count (150-450) 10^3/uL Neut % (Auto) (42.2-75.2) % Lymph % (Auto) (20.5-50.1) % [place] % (Auto) (2-8) % Eos % (Auto) (1.0-3.0) % Baso % (Auto) (0.0-1.0) % Sodium 139 (135-145) mmol/L Potassium 5.5 H (3.6-5.0) mmol/L Chloride 110 (101-111) mmol/L Carbon Dioxide 19.0 L (21.0-31.0) mmol/L Anion Gap 15.5 BUN 34 H (7-18) mg/dL Creatinine 2.9 H (0.6-1.3) mg/dL Est Cr Clr Drug Dosing 31.52 mL/min Estimated GFR (MDRD) 22 Glucose 196 H (74-105) mg/dL POC Glucose 103 236 H (70-105) mg/dl Calcium 8.7 (8.4-10.2) mg/dl 10/18/16 10/18/16 10/19/16 Range/Units 20:00 21:35 06:24 WBC 7.0 (5.0-10.0) 10^3/uL RBC 3.66 L (4.6-6.2) 10^6/uL Hgb 11.1 L (14.0-18.0) g/dL Hct 33.8 L (40.0-54.0) % MCV 92.3 (80-100) fL MCH 30.3 (27.0-34.0) pg MCHC 32.8 L (33.0-35.0) g/dL Plt Count 133 L (150-450) 10^3/uL Neut % (Auto) 52.7 (42.2-75.2) % Lymph % (Auto) 24.5 (20.5-50.1) % [place] % (Auto) 17.4 H (2-8) % Eos % (Auto) 4.7 H (1.0-3.0) % Baso % (Auto) 0.7 (0.0-1.0) % Sodium 140 (135-145) mmol/L Potassium 4.8 (3.6-5.0) mmol/L Chloride 109 (101-111) mmol/L Carbon Dioxide 19.0 L (21.0-31.0) mmol/L Anion Gap 16.8 BUN 34 H (7-18) mg/dL Creatinine 3.0 H (0.6-1.3) mg/dL Est Cr Clr Drug Dosing 30.47 mL/min Estimated GFR (MDRD) 21 Glucose 268 H (74-105) mg/dL POC Glucose 215 H (70-105) mg/dl Calcium 8.9 (8.4-10.2) mg/dl 10/19/16 10/19/16 Range/Units 06:24 08:00 WBC (5.0-10.0) 10^3/uL RBC (4.6-6.2) 10^6/uL Hgb (14.0-18.0) g/dL Hct (40.0-54.0) % MCV (80-100) fL MCH (27.0-34.0) pg MCHC (33.0-35.0) g/dL Plt Count (150-450) 10^3/uL Neut % (Auto) (42.2-75.2) % Lymph % (Auto) (20.5-50.1) % [place] % (Auto) (2-8) % Eos % (Auto) (1.0-3.0) % Baso % (Auto) (0.0-1.0) % Sodium 139 (135-145) mmol/L Potassium 4.4 (3.6-5.0) mmol/L Chloride 111 (101-111) mmol/L Carbon Dioxide 18.0 L (21.0-31.0) mmol/L Anion Gap 14.4 BUN 34 H (7-18) mg/dL Creatinine 2.8 H (0.6-1.3) mg/dL Est Cr Clr Drug Dosing 32.64 mL/min Estimated GFR (MDRD) 23 Glucose 142 H (74-105) mg/dL POC Glucose 135 H (70-105) mg/dl Calcium 8.4 (8.4-10.2) mg/dl Jorge Results Last 24 Hours: Microbiology 10/17/16 11:25 Aerobic Blood Culture - Preliminary Blood - Venous - Lab Draw NO GROWTH AFTER 1 DAY Anaerobic Blood Culture - Preliminary NO GROWTH AFTER 1 DAY 10/17/16 11:20 Aerobic Blood Culture - Preliminary Blood - Venous NO GROWTH AFTER 1 DAY Anaerobic Blood Culture - Preliminary NO GROWTH AFTER 1 DAY Med Orders - Current: Current Medications Bacitracin (Bacitracin Oint) 1 gm TOP TID [facility] Last Admin: 10/19/16 09:51 Dose: 1 applic Docusate Sodium (Colace) 100 mg PO BID PRN PRN Reason: Constipation Glimepiride (Amaryl) 2 mg PO WITHBREAKFAST [facility] Last Admin: 10/19/16 09:50 Dose: 2 mg Heparin Sodium (Porcine) (Heparin Sodium) 5,000 units SUBCUT Q8HR [facility] Last Admin: 10/19/16 05:14 Dose: Not Given Sodium Chloride (Normal Saline) 1,000 mls @ 125 mls/hr IV ASDIRECTED [facility] Last Admin: 10/19/16 05:33 Dose: 125 mls/hr Ceftriaxone Sodium 1 gm/ (Sodium Chloride) 50 mls @ 100 mls/hr IV Q24H [facility] Last Admin: 10/19/16 09:52 Dose: 100 mls/hr Sodium Chloride (Normal Saline) 500 mls @ 500 mls/hr IV ASDIRECTED [facility] Last Infusion: 10/18/16 19:57 Dose: Infused Insulin Aspart (Novolog) 0 unit SUBCUT TIDAC [facility] PRN Reason: Protocol Last Admin: 10/19/16 09:54 Dose: Not Given Metoprolol Tartrate (Lopressor) 25 mg PO BID [facility] Last Admin: 10/19/16 09:49 Dose: 25 mg Ondansetron HCl (Zofran Odt) 4 mg PO Q6H PRN PRN Reason: nausea, able to take PO Oxycodone HCl (Oxycodone) 5 mg PO Q4H PRN PRN Reason: Pain (moderate 4-6) Last Admin: 10/18/16 06:08 Dose: 5 mg Sodium Bicarbonate (Sodium Bicarbonate) 650 mg PO TID [facility] Stop: 10/19/16 21:01 Last Admin: 10/19/16 09:50 Dose: 650 mg Tamsulosin HCl (Flomax) 0.4 mg PO BEDTIME [facility] Last Admin: 10/18/16 21:30 Dose: 0.4 mg Zolpidem Tartrate (Ambien) 5 mg PO BEDTIME PRN PRN Reason: Sleep Last Admin: 10/18/16 21:31 Dose: 5 mg Discontinued Medications Acetaminophen (Tylenol) 650 mg PO Q4H PRN PRN Reason: Pain (Mild 1-3)/fever Calcium Gluconate (Calcium Gluconate) 1 gm IVPUSH ONETIME ONE Stop: 10/18/16 16:12 Last Admin: 10/18/16 17:07 Dose: 1 gm Dextrose/Water (Dextrose 50% In Water) 50 ml IVPUSH ONETIME ONE Stop: 10/18/16 16:13 Last Admin: 10/18/16 16:51 Dose: 50 ml Furosemide (Lasix) 40 mg PO ONETIME ONE Stop: 10/18/16 09:39 Last Admin: 10/18/16 09:49 Dose: 40 mg Furosemide (Lasix) 40 mg IVPUSH NOW ONE Stop: 10/18/16 16:15 Last Admin: 10/18/16 17:07 Dose: 40 mg Glimepiride (Amaryl) 1 mg PO WITHBREAKFAST [facility] Last Admin: 10/16/16 09:50 Dose: 1 mg Sodium Chloride (Normal Saline) 1,000 mls @ 250 mls/hr IV .BOLUS ONE Stop: 10/15/16 13:31 Last Admin: 10/15/16 09:50 Dose: 250 mls/hr Piperacillin Sod/Tazobactam (Sod 3.375 gm/ Sodium Chloride) 100 mls @ 200 mls/ hr IV ONETIME ONE Stop: 10/15/16 11:37 Last Admin: 10/15/16 11:26 Dose: 200 mls/hr Piperacillin Sod/Tazobactam (Sod 3.375 gm/ Sodium Chloride) 100 mls @ 200 mls/ hr IV .Q8H [facility] Potassium Chloride/Sodium Chloride (Normal Saline With 20 Meq Kcl) 1,000 mls @ 100 mls/hr IV ASDIRECTED [facility] Last Infusion: 10/18/16 15:44 Dose: Infused Piperacillin Sod/Tazobactam (Sod 3.375 gm/ Sodium Chloride) 100 mls @ 200 mls/ hr IV Q8H [facility] Last Infusion: 10/18/16 05:24 Dose: Infused Vancomycin HCl 1.5 gm/ Sodium (Chloride) 500 mls @ 333.333 mls/hr IV Q12H [facility] Last Admin: 10/16/16 10:49 Dose: Not Given Vancomycin HCl 1.5 gm/ Sodium (Chloride) 250 mls @ 166.667 mls/hr IV Q12H [facility] Vancomycin HCl 1.5 gm/ Sodium (Chloride) 250 mls @ 166.667 mls/hr IV Q12H [facility] Last Admin: 10/16/16 23:17 Dose: 166.667 mls/hr Ibuprofen (Motrin) 400 mg PO Q6H PRN PRN Reason: Pain (mild 1-3) Last Admin: 10/16/16 03:17 Dose: 400 mg Insulin Aspart (Novolog) 14 unit SUBCUT ONETIME ONE Stop: 10/15/16 17:24 Last Admin: 10/15/16 17:35 Dose: 14 units Insulin Aspart (Novolog) 10 unit SUBCUT ONETIME ONE Stop: 10/15/16 22:46 Last Admin: 10/15/16 23:31 Dose: 10 units Insulin Human Regular (Humulin R) 8 unit IV ONETIME ONE PRN Reason: Protocol Stop: 10/18/16 16:13 Last Admin: 10/18/16 16:52 Dose: 8 units Lisinopril (Prinivil) 5 mg PO DAILY [facility] Last Admin: 10/16/16 10:48 Dose: Not Given Sodium Bicarbonate (Sodium Bicarbonate) 650 mg PO BID [facility] Stop: 10/20/16 21:01 Last Admin: 10/18/16 08:35 Dose: 650 mg Sodium Polystyrene Sulfonate (Kayexalate) 15 gm PO ONETIME ONE Stop: 10/18/16 11:05 Last Admin: 10/18/16 11:36 Dose: 15 gm Sodium Polystyrene Sulfonate (Kayexalate) 15 gm PO ONETIME ONE Stop: 10/18/16 16:13 Last Admin: 10/18/16 17:25 Dose: 15 gm Vancomycin HCl (Pharmacy To Dose - Vancomycin) 1 dose .XX ASDIRECTED [facility] - Exam General: Alert, Oriented Neck: Supple Lungs: Clear to Auscultation, Normal Respiratory Effort Cardiovascular: Regular Rate, Regular Rhythm GI/Abdominal Exam: Normal Bowel Sounds, Soft, Non-Tender Extremities: No Pedal Edema Skin: Other (right foot, 1st toe ulcer) Neurological: No New Focal Deficit Psy/Mental Status: Alert, Normal Affect, Normal Mood - Problem List & Annotations (1) Cellulitis of great toe, right SNOMED Code(s): 49212954 Code(s): L03.031 - CELLULITIS OF RIGHT TOE Status: Acute Current Visit: Yes (2) Diabetes SNOMED Code(s): 26640430 Code(s): E11.9 - TYPE 2 DIABETES MELLITUS WITHOUT COMPLICATIONS Status: Acute Current Visit: No Qualifiers: Diabetes mellitus type: type 2 Diabetes mellitus complication status: without complication Diabetes mellitus long distance operator insulin use: without long distance operator use Qualified Code(s): E11.9 - Type 2 diabetes mellitus without complications (3) Diabetic foot ulcer SNOMED Code(s): 779212437 Code(s): E11.621 - TYPE 2 DIABETES MELLITUS WITH FOOT ULCER; L97.509 - NON- PRESSURE CHRONIC ULCER OTH PRT UNSP FOOT W UNSP SEVERITY Status: Acute Current Visit: No Qualifiers: Diabetes mellitus type: type 2 Laterality: right (4) Hypertension SNOMED Code(s): 19051992 Code(s): I10 - ESSENTIAL (PRIMARY) HYPERTENSION Status: Acute Current Visit: No Qualifiers: Hypertension type: essential hypertension Qualified Code(s): I10 - Essential (primary) hypertension (5) Sepsis affecting skin SNOMED Code(s): 061105136 Code(s): A41.9 - SEPSIS, UNSPECIFIED ORGANISM Status: Acute Current Visit : Yes (6) Acute renal failure SNOMED Code(s): 53794996 Code(s): N17.9 - ACUTE KIDNEY FAILURE, UNSPECIFIED Status: Acute Current Visit: Yes (7) Hyperkalemia SNOMED Code(s): 01652456 Code(s): E87.5 - HYPERKALEMIA Status: Acute Current Visit: Yes - Problem List Review Problem List Initiated/Reviewed/Updated: Yes - My Orders Last 24 Hours: My Active Orders 10/18/16 09:00 cefTRIAXone [Rocephin] 1 gm Sodium Chloride 0.9% [Normal Saline] 50 ml IV Q24H 10/18/16 09:45 Sodium Chloride 0.9% [Normal Saline] 1,000 ml IV ASDIRECTED 10/18/16 14:00 Sodium Bicarbonate 650 mg PO TID 10/18/16 16:15 Telemetry Monitoring [Cardiac Monitoring] [RC] . DIRECTED Sodium Chloride 0.9% [Normal Saline] 500 ml IV ASDIRECTED 10/20/16 05:15 BASIC METABOLIC PANEL,BMP [CHEM] AM CBC WITH AUTO DIFF [HEME] AM - Plan Plan:: 70-year-old gentleman who presented with not feeling well. No specific Complaints. He has a history of diabetes, hypertension, diabetic foot ulcer. The diabetic foot ulcer on the right great toe has been present for months. Has been working with podiatry. There is no associated pain. Redness and swelling noted in the emergency room but the patient did not notice it at home. 1. Sepsis with gram-positive bacteremia due to Cellulitis of the right first toe with diabetic foot ulcer MRI showed osteomyelitis. There is no significant drainage. I do not think at this point it requires urgent surgical intervention. The patient would like to avoid amputation Blood cultures: 10/15: Streptococcus agalactiae, sensitive to penicillins, fluoroquinolones 10/17: pending - neg for 1 day Treat with IV antibiotic Switched Zosyn to ceftriaxone once a day IV Stopped vancomycin due to acute renal failure The patient will need prolonged IV antibiotic course Plan for PICC line placement when blood cultures are negative and renal function is improving wound care with tefla and gauze 2. Diabetes Uncontrolled we will hold the metformin Increased glimepiride Use supplemental insulin as needed 3. Hypertension Had a few lower blood pressure reading, has acute renal failure Treat with metoprolol, Stopped lisinopril due to renal failure Monitor blood pressure and adjust as needed 4. Acute renal failure likely due to infection, hypotension improved With associated metabolic acidosis Stopped lisinopril, Motrin, vancomycin Continue sodium bicarbonate Continue IV fluid Hyperkalemia associated with acute renal failure resolved with kayexelate, glucose,insulin, calcium gluconate, continue sodium bicarbonate continue IV fluid with normal saline Recheck electrolytes and renal function test in the morning 5. DVT prophylaxis will be with subcutaneous heparin
[2016-10-19] MEDS: Tamsulosin 0.4 MG Cap.ER PO SCH (22:16)
[2016-10-19] MEDS: Zolpidem 5 MG Tab PO PRN (22:18)
[2016-10-20] MEDS: Sodium Chloride 0.9% 1,000 ML IV SCH ×3 (00:35→21:27)
[2016-10-20] MEDS: Heparin Sodium 5,000 Units/ML Vial SUBCUT SCH ×3 (06:19→21:24)
[2016-10-20] MEDS: cefTRIAXone 1 GM in Sodium Chloride 0.9% 50 ML IV SCH (10:26)
[2016-10-20] MEDS: Metoprolol Tartrate 25 MG Tab PO SCH ×2 (10:29→21:23)
[2016-10-20] MEDS: Glimepiride 2 MG Tab PO SCH (10:30)
[2016-10-20] MEDS: Insulin Aspart 100 Units/ML 3 ML Pen SUBCUT SCH ×3 (10:32→17:10)
--- NOTE | 2016-10-20 12:42 | PCM.PN ---
- General Info Date of Service: 10/20/16 Admission Dx/Problem (Free Text): Admission Diagnosis/Problem Admission Diagnosis/Problem Cellulitis Subjective Update: Overnight remained stable No significant pain in the toe. Had more bleeding from the toe. No fever, no chills Remained on IV fluids, has good urine output No more diarrhea. No abdominal pain. - Review of Systems General: Denies: Fever, Weakness Pulmonary: Denies: Shortness of Breath Cardiovascular: Denies: Chest Pain Gastrointestinal: Denies: Abdominal Pain Psychiatric: Reports: No Symptoms - Patient Data Vitals - Most Recent: Last Vital Signs Temp 37.3 C 10/20/16 11:00 Pulse 57 L 10/20/16 11:00 Resp 20 10/20/16 11:00 BP 125/73 10/20/16 11:00 Pulse Ox 98 10/20/16 11:00 Weight - Most Recent: 102.058 kg I&O - Last 24 Hours: Intake & Output 10/19/16 10/20/16 10/20/16 22:59 06:59 14:59 Intake Total 1649 2629 550 Output Total 2600 825 Balance -951 1804 550 Lab Results Last 24 Hours: Laboratory Results - last 24 hr 10/19/16 10/19/16 10/20/16 Range/Units 17:03 21:04 06:17 WBC 7.2 (5.0-10.0) 10^3/uL RBC 3.60 L (4.6-6.2) 10^6/uL Hgb 11.1 L (14.0-18.0) g/dL Hct 33.0 L (40.0-54.0) % MCV 91.7 (80-100) fL MCH 30.8 (27.0-34.0) pg MCHC 33.6 (33.0-35.0) g/dL Plt Count 141 L (150-450) 10^3/uL Neut % (Auto) 56.2 (42.2-75.2) % Lymph % (Auto) 23.6 (20.5-50.1) % Woodruff % (Auto) 16.0 H (2-8) % Eos % (Auto) 3.5 H (1.0-3.0) % Baso % (Auto) 0.7 (0.0-1.0) % Sodium (135-145) mmol/L Potassium (3.6-5.0) mmol/L Chloride (101-111) mmol/L Carbon Dioxide (21.0-31.0) mmol/L Anion Gap BUN (7-18) mg/dL Creatinine (0.6-1.3) mg/dL Est Cr Clr Drug Dosing mL/min Estimated GFR (MDRD) Glucose (74-105) mg/dL POC Glucose 231 H 176 H (70-105) mg/dl Calcium (8.4-10.2) mg/dl 10/20/16 10/20/16 10/20/16 Range/Units 06:17 08:13 10:55 WBC (5.0-10.0) 10^3/uL RBC (4.6-6.2) 10^6/uL Hgb (14.0-18.0) g/dL Hct (40.0-54.0) % MCV (80-100) fL MCH (27.0-34.0) pg MCHC (33.0-35.0) g/dL Plt Count (150-450) 10^3/uL Neut % (Auto) (42.2-75.2) % Lymph % (Auto) (20.5-50.1) % Woodruff % (Auto) (2-8) % Eos % (Auto) (1.0-3.0) % Baso % (Auto) (0.0-1.0) % Sodium 140 (135-145) mmol/L Potassium 4.3 (3.6-5.0) mmol/L Chloride 112 H (101-111) mmol/L Carbon Dioxide 18.0 L (21.0-31.0) mmol/L Anion Gap 14.3 BUN 33 H (7-18) mg/dL Creatinine 2.7 H (0.6-1.3) mg/dL Est Cr Clr Drug Dosing 33.85 mL/min Estimated GFR (MDRD) 24 Glucose 101 (74-105) mg/dL POC Glucose 100 194 H (70-105) mg/dl Calcium 8.3 L (8.4-10.2) mg/dl Jorge Results Last 24 Hours: Microbiology 10/17/16 11:25 Aerobic Blood Culture - Preliminary Blood - Venous - Lab Draw NO GROWTH AFTER 3 DAYS Anaerobic Blood Culture - Preliminary NO GROWTH AFTER 3 DAYS 10/17/16 11:20 Aerobic Blood Culture - Preliminary Blood - Venous NO GROWTH AFTER 3 DAYS Anaerobic Blood Culture - Preliminary NO GROWTH AFTER 3 DAYS Med Orders - Current: Current Medications Bacitracin (Bacitracin Oint) 1 gm TOP TID [facility] Last Admin: 10/19/16 22:19 Dose: 1 applic Docusate Sodium (Colace) 100 mg PO BID PRN PRN Reason: Constipation Glimepiride (Amaryl) 2 mg PO WITHBREAKFAST [facility] Last Admin: 10/20/16 10:30 Dose: 2 mg Heparin Sodium (Porcine) (Heparin Sodium) 5,000 units SUBCUT Q8HR [facility] Last Admin: 10/20/16 06:19 Dose: 5,000 units Sodium Chloride (Normal Saline) 1,000 mls @ 125 mls/hr IV ASDIRECTED [facility] Last Admin: 10/20/16 10:25 Dose: 125 mls/hr Ceftriaxone Sodium 1 gm/ (Sodium Chloride) 50 mls @ 100 mls/hr IV Q24H [facility] Last Admin: 10/20/16 10:26 Dose: 100 mls/hr Sodium Chloride (Normal Saline) 500 mls @ 500 mls/hr IV ASDIRECTED [facility] Last Infusion: 10/18/16 19:57 Dose: Infused Insulin Aspart (Novolog) 0 unit SUBCUT TIDAC [facility] PRN Reason: Protocol Last Admin: 10/20/16 10:32 Dose: Not Given Metoprolol Tartrate (Lopressor) 25 mg PO BID [facility] Last Admin: 10/20/16 10:29 Dose: 25 mg Ondansetron HCl (Zofran Odt) 4 mg PO Q6H PRN PRN Reason: nausea, able to take PO Oxycodone HCl (Oxycodone) 5 mg PO Q4H PRN PRN Reason: Pain (moderate 4-6) Last Admin: 10/18/16 06:08 Dose: 5 mg Tamsulosin HCl (Flomax) 0.4 mg PO BEDTIME [facility] Last Admin: 10/19/16 22:16 Dose: 0.4 mg Zolpidem Tartrate (Ambien) 5 mg PO BEDTIME PRN PRN Reason: Sleep Last Admin: 10/19/16 22:18 Dose: 5 mg Discontinued Medications Acetaminophen (Tylenol) 650 mg PO Q4H PRN PRN Reason: Pain (Mild 1-3)/fever Calcium Gluconate (Calcium Gluconate) 1 gm IVPUSH ONETIME ONE Stop: 10/18/16 16:12 Last Admin: 10/18/16 17:07 Dose: 1 gm Dextrose/Water (Dextrose 50% In Water) 50 ml IVPUSH ONETIME ONE Stop: 10/18/16 16:13 Last Admin: 10/18/16 16:51 Dose: 50 ml Furosemide (Lasix) 40 mg PO ONETIME ONE Stop: 10/18/16 09:39 Last Admin: 10/18/16 09:49 Dose: 40 mg Furosemide (Lasix) 40 mg IVPUSH NOW ONE Stop: 10/18/16 16:15 Last Admin: 10/18/16 17:07 Dose: 40 mg Glimepiride (Amaryl) 1 mg PO WITHBREAKFAST [facility] Last Admin: 10/16/16 09:50 Dose: 1 mg Sodium Chloride (Normal Saline) 1,000 mls @ 250 mls/hr IV .BOLUS ONE Stop: 10/15/16 13:31 Last Admin: 10/15/16 09:50 Dose: 250 mls/hr Piperacillin Sod/Tazobactam (Sod 3.375 gm/ Sodium Chloride) 100 mls @ 200 mls/ hr IV ONETIME ONE Stop: 10/15/16 11:37 Last Admin: 10/15/16 11:26 Dose: 200 mls/hr Piperacillin Sod/Tazobactam (Sod 3.375 gm/ Sodium Chloride) 100 mls @ 200 mls/ hr IV .Q8H TARA Potassium Chloride/Sodium Chloride (Normal Saline With 20 Meq Kcl) 1,000 mls @ 100 mls/hr IV ASDIRECTED [facility] Last Infusion: 10/18/16 15:44 Dose: Infused Piperacillin Sod/Tazobactam (Sod 3.375 gm/ Sodium Chloride) 100 mls @ 200 mls/ hr IV Q8H [facility] Last Infusion: 10/18/16 05:24 Dose: Infused Vancomycin HCl 1.5 gm/ Sodium (Chloride) 500 mls @ 333.333 mls/hr IV Q12H [facility] Last Admin: 10/16/16 10:49 Dose: Not Given Vancomycin HCl 1.5 gm/ Sodium (Chloride) 250 mls @ 166.667 mls/hr IV Q12H [facility] Vancomycin HCl 1.5 gm/ Sodium (Chloride) 250 mls @ 166.667 mls/hr IV Q12H [facility] Last Admin: 10/16/16 23:17 Dose: 166.667 mls/hr Ibuprofen (Motrin) 400 mg PO Q6H PRN PRN Reason: Pain (mild 1-3) Last Admin: 10/16/16 03:17 Dose: 400 mg Insulin Aspart (Novolog) 14 unit SUBCUT ONETIME ONE Stop: 10/15/16 17:24 Last Admin: 10/15/16 17:35 Dose: 14 units Insulin Aspart (Novolog) 10 unit SUBCUT ONETIME ONE Stop: 10/15/16 22:46 Last Admin: 10/15/16 23:31 Dose: 10 units Insulin Human Regular (Humulin R) 8 unit IV ONETIME ONE PRN Reason: Protocol Stop: 10/18/16 16:13 Last Admin: 10/18/16 16:52 Dose: 8 units Lisinopril (Prinivil) 5 mg PO DAILY [facility] Last Admin: 10/16/16 10:48 Dose: Not Given Sodium Bicarbonate (Sodium Bicarbonate) 650 mg PO BID [facility] Stop: 10/20/16 21:01 Last Admin: 10/18/16 08:35 Dose: 650 mg Sodium Bicarbonate (Sodium Bicarbonate) 650 mg PO TID [facility] Stop: 10/19/16 21:01 Last Admin: 10/19/16 22:17 Dose: 650 mg Sodium Polystyrene Sulfonate (Kayexalate) 15 gm PO ONETIME ONE Stop: 10/18/16 11:05 Last Admin: 10/18/16 11:36 Dose: 15 gm Sodium Polystyrene Sulfonate (Kayexalate) 15 gm PO ONETIME ONE Stop: 10/18/16 16:13 Last Admin: 10/18/16 17:25 Dose: 15 gm Vancomycin HCl (Pharmacy To Dose - Vancomycin) 1 dose .XX ASDIRECTED [facility] - Exam General: Alert, Oriented Neck: Supple Lungs: Clear to Auscultation, Normal Respiratory Effort Cardiovascular: Regular Rate, Regular Rhythm Extremities: Other (Tip of the right first toe with an ulceration) - Problem List & Annotations (1) Cellulitis of great toe, right SNOMED Code(s): 40890776 Code(s): L03.031 - CELLULITIS OF RIGHT TOE Status: Acute Current Visit: Yes (2) Diabetes SNOMED Code(s): 00737123 Code(s): E11.9 - TYPE 2 DIABETES MELLITUS WITHOUT COMPLICATIONS Status: Acute Current Visit: No Qualifiers: Diabetes mellitus type: type 2 Diabetes mellitus complication status: without complication Diabetes mellitus market research analyst insulin use: without market research analyst use Qualified Code(s): E11.9 - Type 2 diabetes mellitus without complications (3) Diabetic foot ulcer SNOMED Code(s): 811279779 Code(s): E11.621 - TYPE 2 DIABETES MELLITUS WITH FOOT ULCER; L97.509 - NON- PRESSURE CHRONIC ULCER OTH PRT UNSP FOOT W UNSP SEVERITY Status: Acute Current Visit: No Qualifiers: Diabetes mellitus type: type 2 Laterality: right (4) Hypertension SNOMED Code(s): 41234836 Code(s): I10 - ESSENTIAL (PRIMARY) HYPERTENSION Status: Acute Current Visit: No Qualifiers: Hypertension type: essential hypertension Qualified Code(s): I10 - Essential (primary) hypertension (5) Sepsis affecting skin SNOMED Code(s): 218823278 Code(s): A41.9 - SEPSIS, UNSPECIFIED ORGANISM Status: Acute Current Visit : Yes (6) Acute renal failure SNOMED Code(s): 76527581 Code(s): N17.9 - ACUTE KIDNEY FAILURE, UNSPECIFIED Status: Acute Current Visit: Yes (7) Hyperkalemia SNOMED Code(s): 20666047 Code(s): E87.5 - HYPERKALEMIA Status: Acute Current Visit: Yes - Problem List Review Problem List Initiated/Reviewed/Updated: Yes - My Orders Last 24 Hours: My Active Orders 10/19/16 15:19 Consult to Physician [CONS] Routine 10/19/16 15:21 Notify Provider Consults [RC] ASDIRECTED 10/19/16 16:32 Discontinue Telemetry Monitoring [Cardiac Monitoring Discontinue] [RC] Click to Edit - Plan Plan:: 70-year-old gentleman who presented with not feeling well. No specific Complaints. He has a history of diabetes, hypertension, diabetic foot ulcer. The diabetic foot ulcer on the right great toe has been present for months. Has been working with podiatry. There is no associated pain. Redness and swelling noted in the emergency room but the patient did not notice it at home. 1. Sepsis with gram-positive bacteremia due to Cellulitis of the right first toe with diabetic foot ulcer MRI showed osteomyelitis. There is no significant drainage. I do not think at this point it requires urgent surgical intervention. The patient would like to avoid amputation Blood cultures: 10/15: Streptococcus agalactiae, sensitive to penicillins, fluoroquinolones 10/17: pending - neg for 1 day Treat with IV antibiotic Switched Zosyn to ceftriaxone once a day IV Stopped vancomycin due to acute renal failure The patient will need prolonged IV antibiotic course Plan for PICC line placement when blood cultures are negative and renal function is improving wound care with tefla and gauze Consulted and discussed the case with Dr. Tang She is recommending amputation of the tip of the toe. Plan to do this on . 2. Diabetes Uncontrolled we will hold the metformin Increased glimepiride Use supplemental insulin as needed 3. Hypertension Had a few lower blood pressure reading, has acute renal failure Treat with metoprolol, Stopped lisinopril due to renal failure Monitor blood pressure and adjust as needed 4. Acute renal failure likely due to infection, hypotension improved further a little bit With associated metabolic acidosis Stopped lisinopril, Motrin, vancomycin Continue sodium bicarbonate Continue IV fluid Hyperkalemia associated with acute renal failure resolved with kayexelate, glucose,insulin, calcium gluconate treatment continue sodium bicarbonate continue IV fluid with normal saline Recheck electrolytes and renal function test in the morning 5. DVT prophylaxis will be with subcutaneous heparin Discussed with Dr. Tang today
[2016-10-20] MEDS: Bacitracin Oint 28.35 GM Tube TOP SCH ×3 (13:11→21:23)
--- NOTE | 2016-10-20 16:44 | PCM.CONSN ---
- General Info Date of Service: 10/20/16 Admission Dx/Problem (Free Text): Admission Diagnosis/Problem Admission Diagnosis/Problem Cellulitis Subjective Update: 70 y/o Diabetic male with right foot infected wound on great toe with redness and drainage. Pt currently on IV antibiotics for positive blood culture. Presented on to ER not feeling well. Was noted to have redness with wound to right great toe. He denies any pain to the toe. States he did not notice that it was red and draining before he went to the ER. I have been seeing him for diabetic toe ulcer in my clinic. - Review of Systems General: Reports: No Symptoms - Patient Data Vitals - Most Recent: Last Vital Signs Temp 36.9 C 10/20/16 15:58 Pulse 93 10/20/16 15:58 Resp 20 10/20/16 15:58 BP 140/69 10/20/16 15:58 Pulse Ox 99 10/20/16 15:58 Weight - Most Recent: 102.058 kg I&O - Last 24 Hours: Intake & Output 10/20/16 10/20/16 10/20/16 06:59 14:59 22:59 Intake Total 2629 790 Output Total 825 Balance 1804 790 Lab Results Last 24 Hours: Laboratory Results - last 24 hr 10/19/16 10/19/16 10/20/16 Range/Units 17:03 21:04 06:17 WBC 7.2 (5.0-10.0) 10^3/uL RBC 3.60 L (4.6-6.2) 10^6/uL Hgb 11.1 L (14.0-18.0) g/dL Hct 33.0 L (40.0-54.0) % MCV 91.7 (80-100) fL MCH 30.8 (27.0-34.0) pg MCHC 33.6 (33.0-35.0) g/dL Plt Count 141 L (150-450) 10^3/uL Neut % (Auto) 56.2 (42.2-75.2) % Lymph % (Auto) 23.6 (20.5-50.1) % [place]kins % (Auto) 16.0 H (2-8) % Eos % (Auto) 3.5 H (1.0-3.0) % Baso % (Auto) 0.7 (0.0-1.0) % Sodium (135-145) mmol/L Potassium (3.6-5.0) mmol/L Chloride (101-111) mmol/L Carbon Dioxide (21.0-31.0) mmol/L Anion Gap BUN (7-18) mg/dL Creatinine (0.6-1.3) mg/dL Est Cr Clr Drug Dosing mL/min Estimated GFR (MDRD) Glucose (74-105) mg/dL POC Glucose 231 H 176 H (70-105) mg/dl Calcium (8.4-10.2) mg/dl 10/20/16 10/20/16 10/20/16 Range/Units 06:17 08:13 10:55 WBC (5.0-10.0) 10^3/uL RBC (4.6-6.2) 10^6/uL Hgb (14.0-18.0) g/dL Hct (40.0-54.0) % MCV (80-100) fL MCH (27.0-34.0) pg MCHC (33.0-35.0) g/dL Plt Count (150-450) 10^3/uL Neut % (Auto) (42.2-75.2) % Lymph % (Auto) (20.5-50.1) % [place]kins % (Auto) (2-8) % Eos % (Auto) (1.0-3.0) % Baso % (Auto) (0.0-1.0) % Sodium 140 (135-145) mmol/L Potassium 4.3 (3.6-5.0) mmol/L Chloride 112 H (101-111) mmol/L Carbon Dioxide 18.0 L (21.0-31.0) mmol/L Anion Gap 14.3 BUN 33 H (7-18) mg/dL Creatinine 2.7 H (0.6-1.3) mg/dL Est Cr Clr Drug Dosing 33.85 mL/min Estimated GFR (MDRD) 24 Glucose 101 (74-105) mg/dL POC Glucose 100 194 H (70-105) mg/dl Calcium 8.3 L (8.4-10.2) mg/dl Jorge Results Last 24 Hours: Microbiology 10/17/16 11:25 Aerobic Blood Culture - Preliminary Blood - Venous - Lab Draw NO GROWTH AFTER 3 DAYS Anaerobic Blood Culture - Preliminary NO GROWTH AFTER 3 DAYS 10/17/16 11:20 Aerobic Blood Culture - Preliminary Blood - Venous NO GROWTH AFTER 3 DAYS Anaerobic Blood Culture - Preliminary NO GROWTH AFTER 3 DAYS Med Orders - Current: Current Medications Bacitracin (Bacitracin Oint) 1 gm TOP TID [facility] Last Admin: 10/20/16 15:30 Dose: 1 applic Docusate Sodium (Colace) 100 mg PO BID PRN PRN Reason: Constipation Glimepiride (Amaryl) 2 mg PO WITHBREAKFAST [facility] Last Admin: 10/20/16 10:30 Dose: 2 mg Heparin Sodium (Porcine) (Heparin Sodium) 5,000 units SUBCUT Q8HR [facility] Last Admin: 10/20/16 15:30 Dose: 5,000 units Sodium Chloride (Normal Saline) 1,000 mls @ 125 mls/hr IV ASDIRECTED [facility] Last Admin: 10/20/16 10:25 Dose: 125 mls/hr Ceftriaxone Sodium 1 gm/ (Sodium Chloride) 50 mls @ 100 mls/hr IV Q24H [facility] Last Admin: 10/20/16 10:26 Dose: 100 mls/hr Sodium Chloride (Normal Saline) 500 mls @ 500 mls/hr IV ASDIRECTED [facility] Last Infusion: 10/18/16 19:57 Dose: Infused Insulin Aspart (Novolog) 0 unit SUBCUT TIDAC [facility] PRN Reason: Protocol Last Admin: 10/20/16 13:04 Dose: 2 units Metoprolol Tartrate (Lopressor) 25 mg PO BID [facility] Last Admin: 10/20/16 10:29 Dose: 25 mg Ondansetron HCl (Zofran Odt) 4 mg PO Q6H PRN PRN Reason: nausea, able to take PO Oxycodone HCl (Oxycodone) 5 mg PO Q4H PRN PRN Reason: Pain (moderate 4-6) Last Admin: 10/18/16 06:08 Dose: 5 mg Tamsulosin HCl (Flomax) 0.4 mg PO BEDTIME [facility] Last Admin: 10/19/16 22:16 Dose: 0.4 mg Zolpidem Tartrate (Ambien) 5 mg PO BEDTIME PRN PRN Reason: Sleep Last Admin: 10/19/16 22:18 Dose: 5 mg Discontinued Medications Acetaminophen (Tylenol) 650 mg PO Q4H PRN PRN Reason: Pain (Mild 1-3)/fever Calcium Gluconate (Calcium Gluconate) 1 gm IVPUSH ONETIME ONE Stop: 10/18/16 16:12 Last Admin: 10/18/16 17:07 Dose: 1 gm Dextrose/Water (Dextrose 50% In Water) 50 ml IVPUSH ONETIME ONE Stop: 10/18/16 16:13 Last Admin: 10/18/16 16:51 Dose: 50 ml Furosemide (Lasix) 40 mg PO ONETIME ONE Stop: 10/18/16 09:39 Last Admin: 10/18/16 09:49 Dose: 40 mg Furosemide (Lasix) 40 mg IVPUSH NOW ONE Stop: 10/18/16 16:15 Last Admin: 10/18/16 17:07 Dose: 40 mg Glimepiride (Amaryl) 1 mg PO WITHBREAKFAST [facility] Last Admin: 10/16/16 09:50 Dose: 1 mg Sodium Chloride (Normal Saline) 1,000 mls @ 250 mls/hr IV .BOLUS ONE Stop: 10/15/16 13:31 Last Admin: 10/15/16 09:50 Dose: 250 mls/hr Piperacillin Sod/Tazobactam (Sod 3.375 gm/ Sodium Chloride) 100 mls @ 200 mls/ hr IV ONETIME ONE Stop: 10/15/16 11:37 Last Admin: 10/15/16 11:26 Dose: 200 mls/hr Piperacillin Sod/Tazobactam (Sod 3.375 gm/ Sodium Chloride) 100 mls @ 200 mls/ hr IV .Q8H [facility] Potassium Chloride/Sodium Chloride (Normal Saline With 20 Meq Kcl) 1,000 mls @ 100 mls/hr IV ASDIRECTED [facility] Last Infusion: 10/18/16 15:44 Dose: Infused Piperacillin Sod/Tazobactam (Sod 3.375 gm/ Sodium Chloride) 100 mls @ 200 mls/ hr IV Q8H [facility] Last Infusion: 10/18/16 05:24 Dose: Infused Vancomycin HCl 1.5 gm/ Sodium (Chloride) 500 mls @ 333.333 mls/hr IV Q12H [facility] Last Admin: 10/16/16 10:49 Dose: Not Given Vancomycin HCl 1.5 gm/ Sodium (Chloride) 250 mls @ 166.667 mls/hr IV Q12H [facility] Vancomycin HCl 1.5 gm/ Sodium (Chloride) 250 mls @ 166.667 mls/hr IV Q12H [facility] Last Admin: 10/16/16 23:17 Dose: 166.667 mls/hr Ibuprofen (Motrin) 400 mg PO Q6H PRN PRN Reason: Pain (mild 1-3) Last Admin: 10/16/16 03:17 Dose: 400 mg Insulin Aspart (Novolog) 14 unit SUBCUT ONETIME ONE Stop: 10/15/16 17:24 Last Admin: 10/15/16 17:35 Dose: 14 units Insulin Aspart (Novolog) 10 unit SUBCUT ONETIME ONE Stop: 10/15/16 22:46 Last Admin: 10/15/16 23:31 Dose: 10 units Insulin Human Regular (Humulin R) 8 unit IV ONETIME ONE PRN Reason: Protocol Stop: 10/18/16 16:13 Last Admin: 10/18/16 16:52 Dose: 8 units Lisinopril (Prinivil) 5 mg PO DAILY [facility] Last Admin: 10/16/16 10:48 Dose: Not Given Sodium Bicarbonate (Sodium Bicarbonate) 650 mg PO BID [facility] Stop: 10/20/16 21:01 Last Admin: 10/18/16 08:35 Dose: 650 mg Sodium Bicarbonate (Sodium Bicarbonate) 650 mg PO TID [facility] Stop: 10/19/16 21:01 Last Admin: 10/19/16 22:17 Dose: 650 mg Sodium Polystyrene Sulfonate (Kayexalate) 15 gm PO ONETIME ONE Stop: 10/18/16 11:05 Last Admin: 10/18/16 11:36 Dose: 15 gm Sodium Polystyrene Sulfonate (Kayexalate) 15 gm PO ONETIME ONE Stop: 10/18/16 16:13 Last Admin: 10/18/16 17:25 Dose: 15 gm Vancomycin HCl (Pharmacy To Dose - Vancomycin) 1 dose .XX ASDIRECTED [facility] - Exam General: Alert, Oriented, No Acute Distress Physical Findings Comments:: On physical exam he does have palpable pulses to the right LE. Sensation is not intact to digits of the right foot. There is a partial thickness diabetic ulcer plantar right hallux and a full thickness ulcer just distal to that close to the nail that does probe directly to his distal phalanx and tunnels 0.8cm under the nail area. There is expressible purulent drainage from this area. Entire hallux is erythematous. No pain to the digit or extending proximally up the foot /ankle. MRI right foot reveals increased signal to distal phalanx of great toe indicative of osteo, does not appear to involve the proximal phalanx or IPJ. Consult PN Assessment/Plan Procedures: Procedures ASSAY OF CK (CPK) (04/07/16) ASSAY OF CREATININE (08/17/16) ASSAY OF ETHANOL (03/09/13) ASSAY OF LACTIC ACID (01/20/16) ASSAY OF NATRIURETIC PEPTIDE (06/30/13) ASSAY OF TROPONIN QUANT (04/07/16) ASSAY OF VANCOMYCIN (08/17/16) BLOOD CULTURE FOR BACTERIA (01/20/16) C-REACTIVE PROTEIN (07/25/16) CHEST X-RAY 1 VIEW FRONTAL (01/20/16) COMPLETE CBC AUTOMATED (03/09/13) COMPLETE CBC W/AUTO DIFF WBC (07/25/16) COMPREHEN METABOLIC PANEL (04/07/16) CREATINE MB FRACTION (04/07/16) CT ABD & PELV 1/> REGNS (03/27/16) CT ABD & PELV W/CONTRAST (04/07/16) CT LUMBAR SPINE W/O DYE (03/09/13) CULTURE AEROBIC IDENTIFY (07/25/16) CULTURE OTHR SPECIMN AEROBIC (07/25/16) DRAINAGE OF SKIN ABSCESS (07/25/16) EGD BIOPSY SINGLE/MULTIPLE (04/03/16) ELECTROCARDIOGRAM TRACING (04/07/16) EMERGENCY DEPT VISIT (07/31/16) EMERGENCY DEPT VISIT (07/25/16) EMERGENCY DEPT VISIT (04/07/16) EMERGENCY DEPT VISIT (04/07/16) EMERGENCY DEPT VISIT (01/27/16) EMERGENCY DEPT VISIT (01/20/16) EMERGENCY DEPT VISIT (12/03/15) EMERGENCY DEPT VISIT (03/09/13) EMERGENCY DEPT VISIT (03/09/13) FIBRIN DEGRADATION QUANT (03/09/13) GLUCOSE BLOOD TEST (01/20/16) HYDRATE IV INFUSION ADD-ON (01/20/16) IMMUNIZATION ADMIN (01/27/16) MICROBE SUSCEPTIBLE JORGE (07/25/16) OFFICE/OUTPATIENT VISIT EST (08/17/16) PROTHROMBIN TIME (04/07/16) ROUTINE VENIPUNCTURE (08/17/16) RPR S/N/AX/GEN/TRNK2.6-7.5CM (01/27/16) TDAP VACCINE 7 YRS/> IM (01/27/16) THER/PROPH/DIAG INJ SC/IM (03/09/13) THER/PROPH/DIAG IV INF ADDON (08/17/16) THER/PROPH/DIAG IV INF INIT (08/17/16) THROMBOPLASTIN TIME PARTIAL (04/07/16) TX/PRO/DX INJ NEW DRUG ADDON (07/25/16) TX/PRO/DX INJ SAME DRUG [employer] (04/07/16) (1) Diabetic ulcer of toe SNOMED Code(s): 88815486, 736324019 Code(s): E11.621 - TYPE 2 DIABETES MELLITUS WITH FOOT ULCER; L97.509 - NON- PRESSURE CHRONIC ULCER OTH PRT UNSP FOOT W UNSP SEVERITY Current Visit: Yes (2) Cellulitis of great toe, right SNOMED Code(s): 82329110 Code(s): L03.031 - CELLULITIS OF RIGHT TOE Current Visit: Yes Problem List Initiated/Reviewed/Updated: Yes Plan: Diabetic toe ulcer with positive probe to bone and osteo on MRI. Discussed possible options with him today including trying to save the toe versus amputation of the distal aspect of the toe. We thouroughly discussed both options today. Amputation would be the fasted option to get this area to heal and we would most likely just need to remove the distal portion, depending on how it looks once we open. This would also involve washout of the area. If he would like to try and save the toe then that would require bone biopsy with culture to determine osteo pathogen, then a referral to ID in [place] who would then place him on superintendent container terminal IV antibiotics to try to treat the osteo. That is not a gaurantee that it would clear the osteo. Sounds like he will need to be on detention IV antibiotics either way so we could go that route if he prefers. After discussion he is wanting to go ahead with the amputation. We will plan this for right away morning. Continue dressing changes daily to the toe until surgery.
[2016-10-20] MEDS: Tamsulosin 0.4 MG Cap.ER PO SCH (21:23)
[2016-10-20] MEDS: Zolpidem 5 MG Tab PO PRN (21:27)
[2016-10-21] MEDS: Sodium Chloride 0.9% 1,000 ML IV SCH ×3 (05:41→23:36)
[2016-10-21] MEDS: Heparin Sodium 5,000 Units/ML Vial SUBCUT SCH ×3 (05:49→21:37)
[2016-10-21] MEDS: Insulin Aspart 100 Units/ML 3 ML Pen SUBCUT SCH ×3 (08:11→17:44)
[2016-10-21] MEDS: Glimepiride 2 MG Tab PO SCH (08:45)
[2016-10-21] MEDS: Metoprolol Tartrate 25 MG Tab PO SCH ×2 (08:45→20:19)
[2016-10-21] MEDS: cefTRIAXone 1 GM in Sodium Chloride 0.9% 50 ML IV SCH (08:47)
[2016-10-21] MEDS: Bacitracin Oint 28.35 GM Tube TOP SCH (08:47)
--- NOTE | 2016-10-21 10:27 | PCM.PN ---
- General Info Date of Service: 10/21/16 Admission Dx/Problem (Free Text): Admission Diagnosis/Problem Admission Diagnosis/Problem Cellulitis Subjective Update: Feeling okay, no pain in the toe, no associated fever. Was seen by podiatry. Plan for partial toe amputation on . - Review of Systems General: Denies: Fever Pulmonary: Denies: Shortness of Breath Cardiovascular: Denies: Chest Pain Gastrointestinal: Reports: Diarrhea. Denies: Abdominal Pain Neurological: Denies: Confusion - Patient Data Vitals - Most Recent: Last Vital Signs Temp 36.9 C 10/21/16 07:00 Pulse 67 10/21/16 08:45 Resp 20 10/21/16 07:00 BP 137/73 10/21/16 08:45 Pulse Ox 100 10/21/16 07:00 Weight - Most Recent: 102.058 kg I&O - Last 24 Hours: Intake & Output 10/20/16 10/21/16 10/21/16 22:59 06:59 14:59 Intake Total 2688 1817 Output Total 900 1330 Balance 1788 487 Lab Results Last 24 Hours: Laboratory Results - last 24 hr 10/20/16 10/20/16 10/20/16 Range/Units 10:55 17:06 21:05 WBC (5.0-10.0) 10^3/uL RBC (4.6-6.2) 10^6/uL Hgb (14.0-18.0) g/dL Hct (40.0-54.0) % MCV (80-100) fL MCH (27.0-34.0) pg MCHC (33.0-35.0) g/dL Plt Count (150-450) 10^3/uL Neut % (Auto) (42.2-75.2) % Lymph % (Auto) (20.5-50.1) % [place] % (Auto) (2-8) % Eos % (Auto) (1.0-3.0) % Baso % (Auto) (0.0-1.0) % Sodium (135-145) mmol/L Potassium (3.6-5.0) mmol/L Chloride (101-111) mmol/L Carbon Dioxide (21.0-31.0) mmol/L Anion Gap BUN (7-18) mg/dL Creatinine (0.6-1.3) mg/dL Est Cr Clr Drug Dosing mL/min Estimated GFR (MDRD) Glucose (74-105) mg/dL POC Glucose 194 H 172 H 143 H (70-105) mg/dl Calcium (8.4-10.2) mg/dl 10/21/16 10/21/16 10/21/16 Range/Units 06:20 06:20 07:49 WBC 8.2 (5.0-10.0) 10^3/uL RBC 3.87 L (4.6-6.2) 10^6/uL Hgb 11.6 L (14.0-18.0) g/dL Hct 35.5 L (40.0-54.0) % MCV 91.7 (80-100) fL MCH 30.0 (27.0-34.0) pg MCHC 32.7 L (33.0-35.0) g/dL Plt Count 158 (150-450) 10^3/uL Neut % (Auto) 58.3 (42.2-75.2) % Lymph % (Auto) 21.7 (20.5-50.1) % [place] % (Auto) 15.9 H (2-8) % Eos % (Auto) 3.4 H (1.0-3.0) % Baso % (Auto) 0.7 (0.0-1.0) % Sodium 141 (135-145) mmol/L Potassium 4.6 (3.6-5.0) mmol/L Chloride 114 H (101-111) mmol/L Carbon Dioxide 17.0 L (21.0-31.0) mmol/L Anion Gap 14.6 BUN 33 H (7-18) mg/dL Creatinine 2.6 H (0.6-1.3) mg/dL Est Cr Clr Drug Dosing 35.15 mL/min Estimated GFR (MDRD) 25 Glucose 109 H (74-105) mg/dL POC Glucose 96 (70-105) mg/dl Calcium 8.6 (8.4-10.2) mg/dl Jorge Results Last 24 Hours: Microbiology 10/17/16 11:25 Aerobic Blood Culture - Preliminary Blood - Venous - Lab Draw NO GROWTH AFTER 3 DAYS Anaerobic Blood Culture - Preliminary NO GROWTH AFTER 3 DAYS 10/17/16 11:20 Aerobic Blood Culture - Preliminary Blood - Venous NO GROWTH AFTER 3 DAYS Anaerobic Blood Culture - Preliminary NO GROWTH AFTER 3 DAYS Med Orders - Current: Current Medications Bacitracin (Bacitracin Oint) 1 gm TOP TID [facility] Last Admin: 10/21/16 08:47 Dose: 1 applic Docusate Sodium (Colace) 100 mg PO BID PRN PRN Reason: Constipation Glimepiride (Amaryl) 2 mg PO WITHBREAKFAST [facility] Last Admin: 10/21/16 08:45 Dose: 2 mg Heparin Sodium (Porcine) (Heparin Sodium) 5,000 units SUBCUT Q8HR [facility] Last Admin: 10/21/16 05:49 Dose: 5,000 units Sodium Chloride (Normal Saline) 1,000 mls @ 125 mls/hr IV ASDIRECTED [facility] Last Admin: 10/21/16 05:41 Dose: 125 mls/hr Ceftriaxone Sodium 1 gm/ (Sodium Chloride) 50 mls @ 100 mls/hr IV Q24H [facility] Last Admin: 10/21/16 08:47 Dose: 100 mls/hr Sodium Chloride (Normal Saline) 500 mls @ 500 mls/hr IV ASDIRECTED [facility] Last Infusion: 10/18/16 19:57 Dose: Infused Insulin Aspart (Novolog) 0 unit SUBCUT TIDAC [facility] PRN Reason: Protocol Last Admin: 10/21/16 08:11 Dose: Not Given Metoprolol Tartrate (Lopressor) 25 mg PO BID [facility] Last Admin: 10/21/16 08:45 Dose: 25 mg Ondansetron HCl (Zofran Odt) 4 mg PO Q6H PRN PRN Reason: nausea, able to take PO Oxycodone HCl (Oxycodone) 5 mg PO Q4H PRN PRN Reason: Pain (moderate 4-6) Last Admin: 10/18/16 06:08 Dose: 5 mg Tamsulosin HCl (Flomax) 0.4 mg PO BEDTIME [facility] Last Admin: 10/20/16 21:23 Dose: 0.4 mg Zolpidem Tartrate (Ambien) 5 mg PO BEDTIME PRN PRN Reason: Sleep Last Admin: 10/20/16 21:27 Dose: 5 mg Discontinued Medications Acetaminophen (Tylenol) 650 mg PO Q4H PRN PRN Reason: Pain (Mild 1-3)/fever Calcium Gluconate (Calcium Gluconate) 1 gm IVPUSH ONETIME ONE Stop: 10/18/16 16:12 Last Admin: 10/18/16 17:07 Dose: 1 gm Dextrose/Water (Dextrose 50% In Water) 50 ml IVPUSH ONETIME ONE Stop: 10/18/16 16:13 Last Admin: 10/18/16 16:51 Dose: 50 ml Furosemide (Lasix) 40 mg PO ONETIME ONE Stop: 10/18/16 09:39 Last Admin: 10/18/16 09:49 Dose: 40 mg Furosemide (Lasix) 40 mg IVPUSH NOW ONE Stop: 10/18/16 16:15 Last Admin: 10/18/16 17:07 Dose: 40 mg Glimepiride (Amaryl) 1 mg PO WITHBREAKFAST [facility] Last Admin: 10/16/16 09:50 Dose: 1 mg Sodium Chloride (Normal Saline) 1,000 mls @ 250 mls/hr IV .BOLUS ONE Stop: 10/15/16 13:31 Last Admin: 10/15/16 09:50 Dose: 250 mls/hr Piperacillin Sod/Tazobactam (Sod 3.375 gm/ Sodium Chloride) 100 mls @ 200 mls/ hr IV ONETIME ONE Stop: 10/15/16 11:37 Last Admin: 10/15/16 11:26 Dose: 200 mls/hr Piperacillin Sod/Tazobactam (Sod 3.375 gm/ Sodium Chloride) 100 mls @ 200 mls/ hr IV .Q8H [facility] Potassium Chloride/Sodium Chloride (Normal Saline With 20 Meq Kcl) 1,000 mls @ 100 mls/hr IV ASDIRECTED [facility] Last Infusion: 10/18/16 15:44 Dose: Infused Piperacillin Sod/Tazobactam (Sod 3.375 gm/ Sodium Chloride) 100 mls @ 200 mls/ hr IV Q8H [facility] Last Infusion: 10/18/16 05:24 Dose: Infused Vancomycin HCl 1.5 gm/ Sodium (Chloride) 500 mls @ 333.333 mls/hr IV Q12H [facility] Last Admin: 10/16/16 10:49 Dose: Not Given Vancomycin HCl 1.5 gm/ Sodium (Chloride) 250 mls @ 166.667 mls/hr IV Q12H [facility] Vancomycin HCl 1.5 gm/ Sodium (Chloride) 250 mls @ 166.667 mls/hr IV Q12H [facility] Last Admin: 10/16/16 23:17 Dose: 166.667 mls/hr Ibuprofen (Motrin) 400 mg PO Q6H PRN PRN Reason: Pain (mild 1-3) Last Admin: 10/16/16 03:17 Dose: 400 mg Insulin Aspart (Novolog) 14 unit SUBCUT ONETIME ONE Stop: 10/15/16 17:24 Last Admin: 10/15/16 17:35 Dose: 14 units Insulin Aspart (Novolog) 10 unit SUBCUT ONETIME ONE Stop: 10/15/16 22:46 Last Admin: 10/15/16 23:31 Dose: 10 units Insulin Human Regular (Humulin R) 8 unit IV ONETIME ONE PRN Reason: Protocol Stop: 10/18/16 16:13 Last Admin: 10/18/16 16:52 Dose: 8 units Lisinopril (Prinivil) 5 mg PO DAILY [facility] Last Admin: 10/16/16 10:48 Dose: Not Given Sodium Bicarbonate (Sodium Bicarbonate) 650 mg PO BID [facility] Stop: 10/20/16 21:01 Last Admin: 10/18/16 08:35 Dose: 650 mg Sodium Bicarbonate (Sodium Bicarbonate) 650 mg PO TID [facility] Stop: 10/19/16 21:01 Last Admin: 10/19/16 22:17 Dose: 650 mg Sodium Polystyrene Sulfonate (Kayexalate) 15 gm PO ONETIME ONE Stop: 10/18/16 11:05 Last Admin: 10/18/16 11:36 Dose: 15 gm Sodium Polystyrene Sulfonate (Kayexalate) 15 gm PO ONETIME ONE Stop: 10/18/16 16:13 Last Admin: 10/18/16 17:25 Dose: 15 gm Vancomycin HCl (Pharmacy To Dose - Vancomycin) 1 dose .XX ASDIRECTED [facility] - Exam General: Alert, Oriented Neck: Supple Lungs: Clear to Auscultation, Normal Respiratory Effort Cardiovascular: Regular Rate, Regular Rhythm GI/Abdominal Exam: Normal Bowel Sounds, Soft, Non-Tender Extremities: No Pedal Edema Skin: Other (r. foot first toe wound) - Problem List & Annotations (1) Cellulitis of great toe, right SNOMED Code(s): 32958281 Code(s): L03.031 - CELLULITIS OF RIGHT TOE Status: Acute Current Visit: Yes (2) Diabetes SNOMED Code(s): 75750960 Code(s): E11.9 - TYPE 2 DIABETES MELLITUS WITHOUT COMPLICATIONS Status: Acute Current Visit: No Qualifiers: Diabetes mellitus type: type 2 Diabetes mellitus complication status: without complication Diabetes mellitus halfway insulin use: without terminal supervisor use Qualified Code(s): E11.9 - Type 2 diabetes mellitus without complications (3) Diabetic foot ulcer SNOMED Code(s): 686734653 Code(s): E11.621 - TYPE 2 DIABETES MELLITUS WITH FOOT ULCER; L97.509 - NON- PRESSURE CHRONIC ULCER OTH PRT UNSP FOOT W UNSP SEVERITY Status: Acute Current Visit: No Qualifiers: Diabetes mellitus type: type 2 Laterality: right (4) Hypertension SNOMED Code(s): 80492633 Code(s): I10 - ESSENTIAL (PRIMARY) HYPERTENSION Status: Acute Current Visit: No Qualifiers: Hypertension type: essential hypertension Qualified Code(s): I10 - Essential (primary) hypertension (5) Sepsis affecting skin SNOMED Code(s): 682737320 Code(s): A41.9 - SEPSIS, UNSPECIFIED ORGANISM Status: Acute Current Visit : Yes (6) Acute renal failure SNOMED Code(s): 26996759 Code(s): N17.9 - ACUTE KIDNEY FAILURE, UNSPECIFIED Status: Acute Current Visit: Yes (7) Hyperkalemia SNOMED Code(s): 23115572 Code(s): E87.5 - HYPERKALEMIA Status: Acute Current Visit: Yes - Problem List Review Problem List Initiated/Reviewed/Updated: Yes - My Orders Last 24 Hours: My Active Orders 10/21/16 10:18 Communication Order [RC] ROUTINE 10/21/16 Lunch NPO After Midnight [Nothing per Oral After Midnight Diet] [DIET] 10/22/16 05:15 BASIC METABOLIC PANEL,BMP [CHEM] AM CBC WITH AUTO DIFF [HEME] AM - Plan Plan:: 70-year-old gentleman who presented with not feeling well. No specific Complaints. He has a history of diabetes, hypertension, diabetic foot ulcer. The diabetic foot ulcer on the right great toe has been present for months. Has been working with podiatry. There is no associated pain. Redness and swelling noted in the emergency room but the patient did not notice it at home. 1. Sepsis with gram-positive bacteremia due to Cellulitis of the right first toe with diabetic foot ulcer MRI showed osteomyelitis. There is no significant drainage. I do not think at this point it requires urgent surgical intervention. The patient would like to avoid amputation Blood cultures: 10/15: Streptococcus agalactiae, sensitive to penicillins, fluoroquinolones 10/17: pending - neg for 1 day Treat with IV antibiotic Switched Zosyn to ceftriaxone once a day IV Stopped vancomycin due to acute renal failure The patient will need prolonged IV antibiotic course Plan for PICC line placement when blood cultures are negative and renal function is improving wound care with tefla and gauze Consulted and discussed the case with Dr. Tang She is recommending amputation of the tip of the toe. Plan to do this on . 2. Diabetes better controlled we will hold the metformin Increased glimepiride Use supplemental insulin as needed 3. Hypertension Had a few lower blood pressure reading, has acute renal failure Treat with metoprolol, Stopped lisinopril due to renal failure Monitor blood pressure and adjust as needed 4. Acute renal failure likely due to infection, hypotension improved further a little bit With associated metabolic acidosis Stopped lisinopril, Motrin, vancomycin Continue sodium bicarbonate Continue IV fluid Hyperkalemia associated with acute renal failure resolved with kayexelate, glucose,insulin, calcium gluconate treatment continue sodium bicarbonate continue IV fluid with normal saline Recheck electrolytes and renal function test in the morning 5. DVT prophylaxis will be with subcutaneous heparin hold that on the morning of surgery
[2016-10-21] MEDS ORDERED: Loperamide 2 MG Cap PO PRN (10:43)
[2016-10-21] MEDS: Tamsulosin 0.4 MG Cap.ER PO SCH (20:19)
[2016-10-22] MEDS: Heparin Sodium 5,000 Units/ML Vial SUBCUT SCH ×3 (06:05→21:38)
[2016-10-22] MEDS: Metoprolol Tartrate 25 MG Tab PO SCH ×3 (06:08→21:36)
[2016-10-22] MEDS ORDERED: Bupivacaine 0.5% 10 ML SDV ONE (07:53)
[2016-10-22] MEDS ORDERED: Lidocaine 1% 30 ML SDV ONE (07:53)
[2016-10-22] MEDS ORDERED: Gentamicin 40 MG/ML 2 ML Vial ONE ×2 (07:53→09:10)
[2016-10-22] MEDS ORDERED: Phenylephrine 1% 10 MG/ML SDV ONE (08:04)
[2016-10-22] MEDS ORDERED: fentaNYL 100 MCG/2 ML SDV ONE (08:04)
[2016-10-22] MEDS ORDERED: ePHEDrine 50 MG/ML SDV ONE (08:04)
[2016-10-22] MEDS ORDERED: Midazolam 1 MG/ML 2 ML SDV ONE (08:04)
[2016-10-22] MEDS ORDERED: Ondansetron 4 MG/2 ML SDV ONE (08:04)
[2016-10-22] MEDS ORDERED: Sodium Chloride 0.9% 100 ML ONE (08:05)
[2016-10-22] MEDS ORDERED: Propofol 200 MG/20 ML SDV ONE (08:05)
[2016-10-22] MEDS ORDERED: Glycopyrrolate 0.2 MG/ML 2 ML SDV ONE (08:05)
[2016-10-22] MEDS ORDERED: Lidocaine 2% 20 ML MDV ONE (08:05)
[2016-10-22] MEDS ORDERED: Lidocaine 1% 30 ML SDV INJECT ONE ×3 (08:42→15:23)
[2016-10-22] MEDS ORDERED: Bupivacaine 0.5% 10 ML SDV INJECT ONE ×3 (08:42→15:23)
--- NOTE | 2016-10-22 09:42 | PCM.OPNOTE ---
- General Post-Op/Procedure Note Date of Surgery/Procedure: 10/22/16 Operative Procedure(s): right great toe distal amputation with wash out and debridement Pre Op Diagnosis: right great toe infection with diabetic ulcer and osteomyelitis Post-Op Diagnosis: michel Anesthesia Technique: Local, MAC Primary Surgeon: Sinai Tang Secondary Surgeon: Jae Reyes Anesthesia Provider: Maxim Moralez Pathology: right great toe, distal proximal bone margins proximal phalanx great toe pre and post irrigation cultures EBL in mLs: 5 Complications: none Condition: Stable Free Text/Narrative:: Intake & Output 10/21/16 10/22/16 10/22/16 22:59 06:59 14:59 Intake Total 583 1040 Output Total 300 855 Balance 283 185 Pt tolerated procedure well and was transported back to the floor with vss and vascular status intact to right foot. Well padded dressing applied to right foot. Placed into post op shoe.
[2016-10-22] MEDS: Glimepiride 2 MG Tab PO SCH (10:24)
[2016-10-22] MEDS: Insulin Aspart 100 Units/ML 3 ML Pen SUBCUT SCH ×3 (10:25→17:38)
--- NOTE | 2016-10-22 10:27 | OR ---
DATE: 10/22/2016 PREOPERATIVE DIAGNOSES: Right diabetic toe ulcer with osteomyelitis and infection. POSTOPERATIVE DIAGNOSES: Right diabetic toe ulcer with osteomyelitis and infection. PROCEDURES PERFORMED: Right distal hallux amputation with washout procedure. ANESTHESIA: Local MAC with preoperative local block of 10 mL of 1:1 mixture of 1% lidocaine plain and 0.5% Marcaine plain. TOURNIQUET TIME: 30 minutes, pneumatic ankle tourniquet. ESTIMATED BLOOD LOSS: Minimal. SPECIMENS REMOVED: 1. Right great toe distal aspect. 2. Right great toe proximal bone margins. 3. Pre and post irrigation wound cultures. INDICATIONS: This is a 70-year-old diabetic male with a right foot infected wound on his great toe with redness and drainage. He is currently on IV antibiotics, admitted into the hospital for positive blood cultures. He presented on to the emergency room, not feeling well. He was noted to have redness with a wound to the right great toe. Denies any pain in that toe. He states he did not notice that it was red and draining before he went to the emergency room. He has been dealing with a chronic ulcer on the bottom of that toe for a few months now. Also, he has history of MRSA and recently had an abscess on his neck. MRI of the right foot reveals increased signal at the distal phalanx of the right great toe, does not appear to involve the proximal phalanx of that toe, does not track proximally down the foot. The patient voiced good understanding of the proposed procedure and possible complications and elects to have surgery for toe amputation at this time. DESCRIPTION OF THE PROCEDURE: The patient was taken to the operating room lying in the supine position. After adequate anesthesia induction as described above, the right foot was prepped and draped in the usual sterile fashion. A pneumatic ankle tourniquet was inflated to 225 mmHg. Attention was then directed to the right great toe at the interphalangeal joint, where a fishmouth incision was made overlying that joint. With that incision, we were able to completely excise the previous diabetic ulceration that was on the plantar hallux. Also, that probed bone was actually on the very distal aspect of the hallux. I first before the prep of the foot, did pre-irrigation cultures of the wound, both aerobic and anaerobic. I marked out the fishmouth incision to make sure there was a good plantar flap at the amputation site. I then made an incision all the way down to bone at the interphalangeal joint and disarticulated the toe at that joint. The distal aspect of the great toe was completely removed and sent to pathology. The interphalangeal joint was inspected and noted to be healthy in appearance without any sign of purulent drainage or infection at the cartilage area. Both the flexor and extensor long tendons were visualized and retracted and excised. Both tendons looked healthy in appearance without any signs of infection. The area was inspected for any necrotic devitalized tissue, and any that was noted was removed. It was noted that there was good bleeding at the flap of the amputation site. The area was then irrigated with copious amounts of normal saline with gentamicin mixture. There was also noted to be an accessory ossicle at the plantar interphalangeal joint that was removed. A rongeur was used to remove the plantar condyles at the proximal phalanx distally to be sent to the lab for proximal bone margins to test for osteo in that area. The area was again inspected, and no infected tissue was visually present. The area was again copiously irrigated. The toe was noted to be already back to a regular color. The area was then closed with 3-0 nylon simple sutures. The area was then dressed with Xeroform to the incision site, fluffs, Webril, and an Dionte wrap. The patient tolerated anesthesia and the procedure well and was transferred to recovery room with vascular status intact as noted by immediate hyperemia to all digits upon deflation of the ankle tourniquet. He was placed back onto the floor and will be continuing the IV antibiotics. [facility] /[id number]
[2016-10-22] MEDS: cefTRIAXone 1 GM in Sodium Chloride 0.9% 50 ML IV SCH (10:30)
[2016-10-22] MEDS ORDERED: Propofol 200 MG/20 ML SDV IV ONE (11:42)
[2016-10-22] MEDS ORDERED: fentaNYL 100 MCG/2 ML SDV IV ONE (11:42)
[2016-10-22] MEDS ORDERED: Lidocaine 2% 20 ML MDV INJECT ONE (11:42)
[2016-10-22] MEDS ORDERED: Midazolam 1 MG/ML 2 ML SDV IV ONE (11:42)
[2016-10-22] MEDS ORDERED: Ondansetron 4 MG/2 ML SDV IV ONE (11:42)
[2016-10-22] MEDS: oxyCODONE 5 MG Tab PO PRN ×2 (12:57→21:36)
[2016-10-22] MEDS: Tamsulosin 0.4 MG Cap.ER PO SCH (21:36)
[2016-10-23] MEDS: oxyCODONE 5 MG Tab PO PRN (01:36)
[2016-10-23] MEDS: Heparin Sodium 5,000 Units/ML Vial SUBCUT SCH (05:59)
[2016-10-23] MEDS: Insulin Aspart 100 Units/ML 3 ML Pen SUBCUT SCH ×2 (08:47→12:30)
[2016-10-23] MEDS: Metoprolol Tartrate 25 MG Tab PO SCH (08:47)
[2016-10-23] MEDS: Glimepiride 2 MG Tab PO SCH (08:48)
[2016-10-23] MEDS: cefTRIAXone 1 GM in Sodium Chloride 0.9% 50 ML IV SCH (08:49)
[2016-10-23 11:35] VITALS: BP 121/67
--- NOTE | 2016-10-23 11:35 | PCM.POSTAN ---
POST ANESTHESIA ASSESSMENT - MENTAL STATUS Mental Status: Alert - VITAL SIGNS Pulse Rate: 68 SaO2: 97 Resp Rate: 12 Blood Pressure: 121/67 Temperature: 37.3 C - RESPIRATORY Respiratory Status: Respiratory Rate WNL - CARDIOVASCULAR CV Status: Pulse Rate WNL - GASTROINTESTINAL GI Status: No Symptoms - POST OP HYDRATION Hydration Status: Adequate & Stable - OBSERVATIONS Free Text/Narrative:: Pt without c/o this am. No PONV, no c/o pain. Pt states no recall of surgery. No post anesthesia complications noted
--- NOTE | 2016-11-04 08:33 | DISCH ---
DISCHARGE DIAGNOSES: 1. Right great toe diabetic ulcer with underlying osteomyelitis infection. 2. Status post amputation of the right distal hallux on 10/22/2016. 3. Bacteremia with positive blood cultures for strep agalactiae group B. 4. Type 2 diabetes, most recent hemoglobin A1c 12.1% in September 2016. 5. Hypertension. 6. Paroxysmal atrial fibrillation, stable. 7. Benign prostatic hypertrophy. 8. Chronic kidney disease, stage 3. 9. Anemia, normocytic. BRIEF HISTORY OF PRESENT ILLNESS: Mr. Ward is a 70-year-old gentleman with diabetes. He presented to the emergency room because he basically did not feel well. He went to work in the morning, but then came to the emergency room for further evaluation. In the emergency room, he was found to have a chronic right great toe diabetic foot ulcer for which he had been seeing his felt cutter for some time. He had no associated pain. The right great toe, however, was noted to be red and quite swollen in the Emergency Department. He was diagnosed with cellulitis of the right great toe. Blood cultures were obtained and he was admitted for further management of his diabetes and what initially appeared to be an infection. PERTINENT LABS AND X-RAYS: CBC on day of admission, showed a white count of 13,000 with a left shift, hemoglobin hematocrit were 13 and 40, platelets were 135,000. At the time of discharge, white count was 9.4 with a normal differential, hemoglobin and hematocrit 12.7 and 38.6 with an MCV of 92. Chemistries at time of admission, showed sodium of 134, which had normalized and was 142 at discharge. Admission potassium was 5.0 and 4.8 at discharge. BUN and creatinine were 25 and 1.3, with a GFR of 55 on admission; and 30 and 2.4, with a GFR of 38 at the time of discharge. LFTs were mildly abnormal with a total bilirubin of 2.1, AST minimally elevated at 53, alk phos was 288, albumin was 3.0. Serum ketones were negative. Blood sugars were followed throughout the admission. Initially, blood sugars ran high in the upper 200s and into the 300s, and occasionally higher. With treatment of the infection and then the surgery, blood sugars greatly improved. Urinalysis showed 50 to 75 rbc's, it was otherwise unremarkable. Microbiology: On the day of admission, 2 sets of blood cultures were drawn. These cultures were positive for Streptococcus agalactiae group B, and more sensitive to the antibiotics tested including penicillin, levofloxacin, linezolid. Two subsequent sets of blood cultures were drawn following the start of IV antibiotic therapy, and both showed no growth after 5 days. Stool was collected for C. difficile toxin and this was negative. Wound cultures were drawn during surgery and no pathogen was isolated from the samples. An MRI of the right lower extremity was performed without contrast and findings were suggestive of osteomyelitis of the distal phalanx of the plantar aspect of the right great toe. No evidence for foreign body was seen. HOSPITAL COURSE: Mr. Ward was admitted as an acute inpatient. He was initially thought to have a limited infection until the MRI showed underlying osteomyelitis. He was started on Zosyn 3.375 g IV every 8 hours, later vancomycin was added to the regimen, and then ceftriaxone 1 g IV every 24 hours as well. His usual medications were continued. Blood sugars were covered with a NovoLog sliding scale per protocol. He received subcutaneous heparin for VTE prophylaxis. Oral oxycodone 5 mg was prescribed for pain, but he took these quite infrequently. On October 22, he was taken to the operating room by Dr. Tang, and underwent amputation of the right distal hallux. He tolerated the procedure well and was up and ambulatory following the surgery, and looking and feeling better. He felt ready to be discharged to home on the day following surgery. Mr. Ward will need outpatient IV antibiotic therapy because of the bacteremia. He is going to travel to [place] over the holiday weekend to visit his son, and we had sent orders and made arrangements for him to receive daily IV ceftriaxone at [facility] in [place]. Following the weekend, he will return as an outpatient here at the hospital, and will continue with IV Rocephin until discontinued by Dr. Tang. At the time of discharge, he was ambulatory. He was feeling better. He voiced no concerns or complaints. Pain was minimal. He was taking in fluids. He was voiding and moving his bowels. He was tolerating his diet. Vital signs were stable and he was afebrile. PHYSICAL EXAMINATION: Vital Signs: On day of discharge, blood pressure is 127/78, pulse 68, respiratory rate 20, oxygen saturation 93% on room air, and he is afebrile. Height 6 feet 6 inches, weight 225 pounds. HEENT: Unremarkable. ENT was clear. Chest: Showed clear bilateral breath sounds. Heart: Showed regular rate and rhythm. Abdomen: Benign. Extremities: Calves were soft and nontender. The right foot was encased in dressing which had been applied by Dr. Tang and was not removed. She had been in to do the dressing and packing changes and was satisfied with appearance of the wound. DISCHARGE MEDICATIONS: 1. Glimepiride 1 mg daily. 2. Lisinopril 5 mg daily. 3. Metoprolol tartrate 25 mg b.i.d. 4. Tamsulosin 0.4 mg at bedtime. 5. Metformin 500 mg daily. 6. Oxycodone 5 mg every 4 hours p.r.n. for pain. A script for 30 tablets was sent by [facility] to [facility]. ALLERGIES: Lansoprazole. He is intolerant to codeine and develops nausea. FOLLOWUP: He will follow up with Dr. Sinai Tang for ongoing wound care of the right foot, and will follow up with his primary care provider, Dr. Busch. CONDITION AT THE TIME OF DISCHARGE: Much improved and stable. [facility] /[id number]
== END 2016-10-23 13:05 | disposition home or self-care (01) | DRG 314 ==
LOC: DL.ED 08:57 → UNDOADMIN 11:18 → DL.MS 11:18 → UNDOADMIN 11:35 → DL.MS 11:35
PROVIDERS: ADMIT Internal Medicine; ATTEND Internal Medicine
PROC: 0Y6P0Z3 Detachment at Right 1st Toe, Low, Open Approach (ICD-10-PCS; principal; 2016-10-22)
DX: L03.031 Cellulitis of right toe (principal); E11.621 Type 2 diabetes mellitus with foot ulcer; L97.519 Non-pressure chronic ulcer of other part of right foot with unspecified severity; Z79.84 Long term (current) use of oral hypoglycemic drugs; Z89.022 Acquired absence of left finger(s); N40.1 Benign prostatic hyperplasia with lower urinary tract symptoms; R33.8 Other retention of urine; Z87.891 Personal history of nicotine dependence; I10 Essential (primary) hypertension; I48.91 Unspecified atrial fibrillation; Z86.73 Personal history of transient ischemic attack (TIA), and cerebral infarction without residual deficits; F10.20 Alcohol dependence, uncomplicated; Z86.14 Personal history of Methicillin resistant Staphylococcus aureus infection; F12.90 Cannabis use, unspecified, uncomplicated; Z88.5 Allergy status to narcotic agent; Z88.8 Allergy status to other drugs, medicaments and biological substances; Z79.899 Other long term (current) drug therapy
CPT/HCPCS: 36415; 71020; 73718-RT; 80048; 80053; 80305; 81001; 82009; 82962; 83605; 83735; 85025; 87040; 87070; 87075; 87077; 87186; 87493; 88305; 88307; 88311; 96361; 96374; 99285; A9270-GY; J0610; J0696; J1580; J1644; J1815; J1815-GY; J1940; J2250; J2405; J2543; J2704; J3010; J3370; J3480; J7030; J7040; J7050; J7060

== ENCOUNTER 2017-01-11 13:05 | Inpatient (IN) | payer BC, MEDICARE ==
--- NOTE | 2017-01-11 13:41 | EDM.PDOC ---
ED HPI GENERAL MEDICAL PROBLEM - General Chief Complaint: Cardiovascular Problem Stated Complaint: FELL DOWN AT SCHOOL Time Seen by Provider: 01/11/17 13:30 Source of Information: Reports: Patient History Limitations: Reports: No Limitations - History of Present Illness INITIAL COMMENTS - FREE TEXT/NARRATIVE: This 71 yo male patient reports to the ED due to an episode of syncope. The patient reports he was walking into the school this morning at about 1030 when he fell down. The patient reports that he initially thought that he tripped, but was later told by the [employer] that he fell down "like a load of bricks." The patient reports the ambulance came to check him out this morning after the fall and found that his blood sugar was over 500. The patient reports that he has been feeling fine since the fall. The patient denies any dizziness or evidence of the fall. The patient reports that he used to be on Metformin for diabetes, but his doctor took him off the medication for some reason. The patient has no current complaints of pain. Onset: Today Onset Date: 01/11/17 Onset Time: 10:30 Duration: Resolved Prior to Arrival Location: Reports: Other (syncope) Quality: Reports: Other Severity: Moderate Improves with: Reports: Rest Worsens with: Reports: None Associated Symptoms: Reports: No Other Symptoms - Related Data Allergies Allergy/AdvReac Type Severity Reaction Status Date / Time lansoprazole [From Prevacid] Allergy Cannot Verified 10/26/16 11:36 Remember acetaminophen AdvReac Nausea Verified 10/26/16 11:36 [From Tylenol-Codeine #3] codeine phosphate AdvReac Nausea Verified 10/26/16 11:36 [From Tylenol-Codeine #3] Home Meds: Home Meds metFORMIN [Glucophage XR] 500 mg PO DAILY 12/01/15 [History] Tamsulosin [Flomax] 1 tab PO BEDTIME 12/03/15 [History] Lisinopril [Prinivil] 5 mg PO DAILY 01/27/16 [History] Metoprolol Tartrate 25 mg PO BID 07/31/16 [History] Glimepiride [Amaryl] 1 mg PO WITHBREAKFAST 10/09/16 [History] oxyCODONE 5 mg PO Q4H PRN #30 tablet 10/23/16 [Rx] Past Medical History HEENT History: Reports: Hard of Hearing, Impaired Vision Other HEENT History: wears glasses Cardiovascular History: Reports: Afib, Hypertension Respiratory History: Reports: None Gastrointestinal History: Reports: Pancreatitis, PUD, Other (See Below) Other Gastrointestinal History: ALCOHOLIC LIVER DISEASE. 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 Fracture to skull greater than 10 years Neurological History: Reports: CVA Psychiatric History: Reports: Other (See Below) Other Psychiatric History: CHRONIC ALCOHOLISM, states he has stopped drinking Endocrine/Metabolic History: Reports: Diabetes, Type II Other Endocrine/Metabolic History: diabetic ulcer and cellulitis right great toe Hematologic History: Reports: Other (See Below) Other Hematologic History: MRSA Immunologic History: Reports: None Oncologic (Cancer) History: Reports: None Dermatologic History: Reports: Other (See Below) Other Dermatologic History: CYST REMOVAL - VOICE BOX - Infectious Disease History Infectious Disease History: Reports: MRSA Other Infectious Disease History: HX of MRSA - Past Surgical History Head Surgeries/Procedures: Reports: Craniotomy Social & Family History - Family History Family Medical History: Noncontributory Neurological: Reports: Alzheimers Disease Oncologic: Reports: Other (See Below) Other Oncologic Family History: Father from cancer in bile ducts. - Tobacco Use Smoking Status *Q: Former Smoker Years of Tobacco use: 15 Packs/Tins Daily: 1.5 Used Tobacco, but Quit: Yes Month Tobacco Last Used: 1994 Second Hand Smoke Exposure: No - Caffeine Use Caffeine Use: Reports: Coffee, Soda - Alcohol Use Days Per Week of Alcohol Use: 7 Number of Drinks Per Day: 6 Total Drinks Per Week: 42 - Recreational Drug Use Recreational Drug Use: Yes Drug Use in Last 12 Months: Yes Recreational Drug Type: Reports: Marijuana/Hashish Other Recreational Drug Type: "couple times a week" Recreational Drug Use Frequency: Weekly Recreational Drug Last Use: "about four days ago" - Living Situation & Occupation Living situation: Reports: Alone Occupation: Employed ED ROS GENERAL - Review of Systems Review Of Systems: ROS reveals no pertinent complaints other than HPI. ED EXAM, GENERAL - Physical Exam Exam: See Below Exam Limited By: No Limitations General Appearance: Alert, WD/WN, Moderate Distress Eye Exam: Bilateral Eye: EOMI, Normal Inspection, PERRL Ears: Normal External Exam, Normal Canal, Hearing Grossly Normal, Normal TMs Nose: Normal Inspection, Normal Mucosa, No Blood Throat/Mouth: Normal Inspection, Normal Lips, Normal Teeth, Normal Gums, Normal Oropharynx, Normal Voice, No Airway Compromise Head: Atraumatic, Normocephalic Neck: Normal Inspection, Supple, Non-Tender, Full Range of Motion Respiratory/Chest: No Respiratory Distress, Lungs Clear, Normal Breath Sounds, No Accessory Muscle Use, Chest Non-Tender Cardiovascular: Normal Peripheral Pulses, Regular Rate, Rhythm, No Edema, No Gallop, No JVD, No Murmur, No Rub GI/Abdominal: Normal Bowel Sounds, Soft, Non-Tender, No Organomegaly, No Distention, No Abnormal Bruit, No Mass (Male) Exam: Deferred Rectal (Males) Exam: Deferred Back Exam: Normal Inspection, Full Range of Motion, NT Extremities: Normal Inspection, Normal Range of Motion, Non-Tender, Normal Capillary Refill, No Pedal Edema Neurological: Alert, Oriented, CN II-XII Intact, Normal Cognition, Normal Gait, Normal Reflexes, No Motor/Sensory Deficits Psychiatric: Normal Affect, Normal Mood Skin Exam: Warm, Dry, Intact, Normal Color, No Rash Lymphatic: No Adenopathy Course - Vital Signs Last Recorded V/S: Last Vital Signs Temp 36.9 C 01/11/17 14:24 Pulse 71 01/11/17 14:24 Resp 16 01/11/17 14:24 BP 128/68 01/11/17 14:24 Pulse Ox 97 01/11/17 14:24 - Orders/Labs/Meds Orders: Active Orders 24 hr Category Date Time Status EKG Documentation Completion [RC] URGENT Care 01/11/17 13:29 Active Insulin Regular, Human [HumuLIN R] 100 unit Med 01/11/17 15:00 Ordered Sodium Chloride 0.9% [Normal Saline] 99 ml IV TITRATE Sodium Chloride 0.9% [Normal Saline] 1,000 ml Med 01/11/17 14:12 Ordered IV .BOLUS Medication Orders Sodium Chloride (Normal Saline) 1,000 mls @ 999 mls/hr IV .BOLUS ONE Stop: 01/11/17 15:12 Last Admin: 01/11/17 14:19 Dose: 999 mls/hr Insulin Human Regular 100 unit (/ Sodium Chloride) 100 mls @ 0 mls/hr IV TITRATE TARA; 2 UNITS/KG/HR PRN Reason: Protocol Labs: Laboratory Tests 01/11/17 01/11/17 01/11/17 Range/Units 13:37 13:37 13:37 WBC 8.1 (5.0-10.0) 10^3/uL RBC 3.76 L (4.6-6.2) 10^6/uL Hgb 11.4 L (14.0-18.0) g/dL Hct 38.3 L (40.0-54.0) % MCV 101.9 H D (80-100) fL MCH 30.3 (27.0-34.0) pg MCHC 29.8 L (33.0-35.0) g/dL Plt Count 131 L (150-450) 10^3/uL Neut % (Auto) 76.4 H (42.2-75.2) % Lymph % (Auto) 11.7 L (20.5-50.1) % Atkinson % (Auto) 10.1 H (2-8) % Eos % (Auto) 1.1 (1.0-3.0) % Baso % (Auto) 0.7 (0.0-1.0) % Sodium 118 L* D (135-145) mmol/L Potassium 5.0 (3.6-5.0) mmol/L Chloride 85 L D (101-111) mmol/L Carbon Dioxide 20.0 L (21.0-31.0) mmol/L Anion Gap 18.0 BUN 27 H (7-18) mg/dL Creatinine 1.7 H (0.6-1.3) mg/dL Est Cr Clr Drug Dosing 53.02 mL/min Estimated GFR (MDRD) 40 BUN/Creatinine Ratio 15.88 Glucose 862 H* (74-105) mg/dL Calcium 8.6 (8.4-10.2) mg/dl Total Bilirubin 1.4 H (0.2-1.0) mg/dL AST 48 H (10-42) IU/L ALT 50 (10-60) IU/L Alkaline Phosphatase 575 H (42-121) IU/L Troponin I 0.02 (0.00-0.02) ng/ml Total Protein 6.9 (6.7-8.2) g/dl Albumin 2.9 L (3.2-5.5) g/dl Globulin 4.0 Albumin/Globulin Ratio 0.73 Urine Color (YELLOW) Urine Appearance (CLEAR) Urine pH (5.0-9.0) Ur Specific [place] (1.005-1.030) Urine Protein (NEGATIVE) Urine Glucose (UA) (NEGATIVE) Urine Ketones (NEGATIVE) Urine Occult Blood (NEGATIVE) Urine Nitrite (NEGATIVE) Urine Bilirubin (NEGATIVE) Urine Urobilinogen (0.2-1.0) mg/dL Ur Leukocyte Esterase (NEGATIVE) Urine RBC /HPF Urine WBC (0-5/HPF) /HPF Ur Epithelial Cells /HPF Urine Bacteria (0-FEW/HPF) /HPF Ethyl Alcohol < 5 mg/dL Ketones Negative 01/11/17 Range/Units 13:52 WBC (5.0-10.0) 10^3/uL RBC (4.6-6.2) 10^6/uL Hgb (14.0-18.0) g/dL Hct (40.0-54.0) % MCV (80-100) fL MCH (27.0-34.0) pg MCHC (33.0-35.0) g/dL Plt Count (150-450) 10^3/uL Neut % (Auto) (42.2-75.2) % Lymph % (Auto) (20.5-50.1) % At[place] % (Auto) (2-8) % Eos % (Auto) (1.0-3.0) % Baso % (Auto) (0.0-1.0) % Sodium (135-145) mmol/L Potassium (3.6-5.0) mmol/L Chloride (101-111) mmol/L Carbon Dioxide (21.0-31.0) mmol/L Anion Gap BUN (7-18) mg/dL Creatinine (0.6-1.3) mg/dL Est Cr Clr Drug Dosing mL/min Estimated GFR (MDRD) BUN/Creatinine Ratio Glucose (74-105) mg/dL Calcium (8.4-10.2) mg/dl Total Bilirubin (0.2-1.0) mg/dL AST (10-42) IU/L ALT (10-60) IU/L Alkaline Phosphatase (42-121) IU/L Troponin I (0.00-0.02) ng/ml Total Protein (6.7-8.2) g/dl Albumin (3.2-5.5) g/dl Globulin Albumin/Globulin Ratio Urine Color Yellow (YELLOW) Urine Appearance Clear (CLEAR) Urine pH 5.0 (5.0-9.0) Ur Specific [place] <= 1.005 (1.005-1.030) Urine Protein Negative (NEGATIVE) Urine Glucose (UA) 500 H (NEGATIVE) Urine Ketones Negative (NEGATIVE) Urine Occult Blood Moderate H (NEGATIVE) Urine Nitrite Negative (NEGATIVE) Urine Bilirubin Negative (NEGATIVE) Urine Urobilinogen 0.2 (0.2-1.0) mg/dL Ur Leukocyte Esterase Negative (NEGATIVE) Urine RBC 10-20 H /HPF Urine WBC 0-5 (0-5/HPF) /HPF Ur Epithelial Cells Rare /HPF Urine Bacteria Rare (0-FEW/HPF) /HPF Ethyl Alcohol mg/dL Ketones Meds: Medications Generic Name Dose Route Start Last Admin Trade Name Freq PRN Reason Stop Dose Admin Sodium Chloride 1,000 mls @ 999 mls/hr 01/11/17 14:12 01/11/17 14:19 Normal Saline IV 01/11/17 15:12 999 mls/hr .BOLUS ONE Administration Insulin Human Regular 100 unit 100 mls @ 0 mls/hr 01/11/17 15:00 / Sodium Chloride IV TITRATE TARA Protocol 2 UNITS/KG/HR Discontinued Medications Generic Name Dose Route Start Last Admin Trade Name Freq PRN Reason Stop Dose Admin Insulin Human Regular 10 unit 01/11/17 14:58 Humulin R IV 01/11/17 14:59 ONETIME ONE Protocol Departure - Departure Time of Disposition: 15:00 Disposition: Admitted As Inpatient 68 Condition: Fair Clinical Impression: Hyperglycemia, Hyponatremia Care Plan Goals: Discussed the patient's history, labs and examination results with Dr. Magana. Dr. Magana accepted the patient for continued evaluation and further management as an inpatient at [facility]. - My Orders Last 24 Hours: My Active Orders 01/11/17 13:29 EKG Documentation Completion [RC] URGENT 01/11/17 14:12 Sodium Chloride 0.9% [Normal Saline] 1,000 ml IV .BOLUS 01/11/17 15:00 Insulin Regular, Human [HumuLIN R] 100 unit Sodium Chloride 0.9% [Normal Saline] 99 ml IV TITRATE - Assessment/Plan Last 24 Hours: My Active Orders 01/11/17 13:29 EKG Documentation Completion [RC] URGENT 01/11/17 14:12 Sodium Chloride 0.9% [Normal Saline] 1,000 ml IV .BOLUS 01/11/17 15:00 Insulin Regular, Human [HumuLIN R] 100 unit Sodium Chloride 0.9% [Normal Saline] 99 ml IV TITRATE
--- NOTE | 2017-01-11 14:02 | CR ---
Clinical history: 71-year-old male who experienced a syncopal episode. Interpretation: Upright AP portable chest film unchanged since 15 October 2016 exam. Calcification arch of the aorta and chronic hypertrophic arthritic changes of the dorsal spine. Normal cardiac silhouette without new cephalization of vascular flow, signs of alveolar edema or depe ndent pleural effusion. No new lung mass, hilar lymphadenopathy or focal lobar pneumonia. No atelectasis/collapse. No pneumot horax. CONCLUSION: No acute new cardiopulmonary abnormality.
[2017-01-11 14:06] LABS: CHLORIDE,CL 85 mmol/L (101-111)
[2017-01-11 14:11] LABS: SODIUM,NA 118 mmol/L (135-145)
[2017-01-11] MEDS ORDERED: Sodium Chloride 0.9% 1,000 ML IV ONE (14:12)
[2017-01-11] MEDS ORDERED: Insulin Regular, Human 100 Units/ML 3 ML Vial IV ONE ×2 (14:58→17:51)
[2017-01-11] MEDS: Sodium Chloride 0.9% 1,000 ML IV SCH ×2 (15:30→20:27)
[2017-01-11] MEDS ORDERED: Zolpidem 5 MG Tab PO PRN (15:45)
[2017-01-11] MEDS ORDERED: Ondansetron 4 MG/2 ML SDV IVPUSH PRN (15:45)
[2017-01-11] MEDS ORDERED: Sodium Chloride 0.9% 10 ML Syringe FLUSH PRN (15:45)
[2017-01-11] MEDS ORDERED: Acetaminophen 325 MG Tab PO PRN (15:45)
[2017-01-11] MEDS ORDERED: Ondansetron 4 MG Tab.DIS PO PRN (15:45)
--- NOTE | 2017-01-11 15:54 | PCM.HP ---
H&P History of Present Illness - General Date of Service: 01/11/17 Admit Problem/Dx: Admission Diagnosis/Problem Admission Diagnosis/Problem Hyperglycemia Source of Information: Patient, Provider - History of Present Illness Initial Comments - Free Text/Narative: 71-year-old gentleman who presented after a fall. The patient has a history of poorly controlled diabetes with medical noncompliance. The patient was recently seen by his primary care physician. Due to chronic kidney disease the patients metformin was stopped plan was to increase the Glimepiride to 3 mg. But the patient remained on 2 mg daily. He has not been checking his blood sugars. He has already acute treatment that he needs but did not want to do it. He has been feeling thirsty in the past few days. 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 He thought he tripped over a rug. Theres were close by thought that he fell like a brick. The patient apparently had no postictal or confusion episode after the event. 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 A few hours later the patient came into the emergency room for a checkup. - Related Data Allergies/Adverse Reactions: Allergies Allergy/AdvReac Type Severity Reaction Status Date / Time lansoprazole [From Prevacid] Allergy Cannot Verified 10/26/16 11:36 Remember acetaminophen AdvReac Nausea Verified 10/26/16 11:36 [From Tylenol-Codeine #3] codeine phosphate AdvReac Nausea Verified 10/26/16 11:36 [From Tylenol-Codeine #3] Home Medications: Home Meds metFORMIN [Glucophage XR] 500 mg PO DAILY 12/01/15 [History] Tamsulosin [Flomax] 1 tab PO BEDTIME 12/03/15 [History] Lisinopril [Prinivil] 5 mg PO DAILY 01/27/16 [History] Metoprolol Tartrate 25 mg PO BID 07/31/16 [History] Glimepiride [Amaryl] 1 mg PO WITHBREAKFAST 10/09/16 [History] oxyCODONE 5 mg PO Q4H PRN #30 tablet 10/23/16 [Rx] Past Medical History HEENT History: Reports: Hard of Hearing, Impaired Vision Other HEENT History: wears glasses Cardiovascular History: Reports: Afib, Hypertension Respiratory History: Reports: None Gastrointestinal History: Reports: Pancreatitis, PUD, Other (See Below) Other Gastrointestinal History: ALCOHOLIC LIVER DISEASE. 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 Fracture to skull greater than 10 years Neurological History: Reports: CVA Psychiatric History: Reports: Other (See Below) Other Psychiatric History: CHRONIC ALCOHOLISM, states he has stopped drinking Endocrine/Metabolic History: Reports: Diabetes, Type II Other Endocrine/Metabolic History: diabetic ulcer and cellulitis right great toe Hematologic History: Reports: Other (See Below) Other Hematologic History: MRSA Immunologic History: Reports: None Oncologic (Cancer) History: Reports: None Dermatologic History: Reports: Other (See Below) Other Dermatologic History: CYST REMOVAL - VOICE BOX - Infectious Disease History Infectious Disease History: Reports: MRSA Other Infectious Disease History: HX of MRSA - Past Surgical History Head Surgeries/Procedures: Reports: Craniotomy Social & Family History - Family History Family Medical History: Noncontributory Neurological: Reports: Alzheimers Disease Oncologic: Reports: Other (See Below) Other Oncologic Family History: Father from cancer in bile ducts. - Tobacco Use Smoking Status *Q: Former Smoker Years of Tobacco use: 15 Packs/Tins Daily: 1.5 Used Tobacco, but Quit: Yes Month Tobacco Last Used: 1994 Second Hand Smoke Exposure: No - Caffeine Use Caffeine Use: Reports: Coffee, Soda - Alcohol Use Days Per Week of Alcohol Use: 7 Number of Drinks Per Day: 6 Total Drinks Per Week: 42 - Recreational Drug Use Recreational Drug Use: Yes Drug Use in Last 12 Months: Yes Recreational Drug Type: Reports: Marijuana/Hashish Other Recreational Drug Type: "couple times a week" Recreational Drug Use Frequency: Weekly Recreational Drug Last Use: "about four days ago" - Living Situation & Occupation Living situation: Reports: Alone Occupation: Employed H&P Review of Systems - Review of Systems: Review Of Systems: See Below General: Denies: Fever Pulmonary: Denies: Shortness of Breath Cardiovascular: Denies: Chest Pain, Palpitations, Edema, Lightheadedness Gastrointestinal: Denies: Abdominal Pain Musculoskeletal: Reports: No Symptoms Psychiatric: Denies: Confusion, Depression, Anxiety Neurological: Denies: Confusion, Headache, Seizure, Tremors Exam - Exam Exam: See Below - Vital Signs Vital Signs: Last Vital Signs Temp 36.9 C 01/11/17 14:24 Pulse 71 01/11/17 14:24 Resp 16 01/11/17 14:24 BP 128/68 01/11/17 14:24 Pulse Ox 97 01/11/17 14:24 Weight: 113.398 kg - Exam General: Alert, Oriented Neck: Supple, Trachea Midline Lungs: Clear to Auscultation, Normal Respiratory Effort Cardiovascular: Regular Rate, Regular Rhythm GI/Abdominal Exam: Normal Bowel Sounds, Soft, Non-Tender Extremities: No Pedal Edema - Patient Data Result Diagrams: 01/11/17 13:37 01/11/17 13:37 *Q Meaningful Use (ADM) - VTE *Q VTE Criteria *Q: - Stroke *Q Stroke Criteria *Q: - AMI *Q AMI Criteria *Q: - Problem List (1) Hyperglycemia SNOMED Code(s): 62585596 ICD Code: R73.9 - HYPERGLYCEMIA, UNSPECIFIED Status: Acute Current Visit : Yes Problem List Initiated/Reviewed/Updated: Yes Orders Last 24hrs: Active Orders 24 hr Category Date Time Status Patient Status [ADT] Routine ADT 01/11/17 15:45 Ordered Antiembolic Devices [RC] PER UNIT ROUTINE Care 01/11/17 15:47 Ordered Glucose [Blood Glucose Check, Bedside] [RC] Q1HR Care 01/11/17 15:43 Ordered Oxygen Therapy [RC] PRN Care 01/11/17 15:45 Ordered Peripheral IV Care [RC] . DIRECTED Care 01/11/17 15:47 Ordered Up With Assistance [RC] ASDIRECTED Care 01/11/17 15:45 Ordered VTE/DVT Education [RC] PER UNIT ROUTINE Care 01/11/17 15:45 Ordered Vital Signs [RC] Q4H Care 01/11/17 15:45 Ordered Consistent Carbohydrate Diet [DIET] Diet 01/11/17 Dinner Ordered BASIC METABOLIC PANEL,BMP [CHEM] AM Lab 01/12/17 05:15 Ordered CBC WITH AUTO DIFF [HEME] AM Lab 01/12/17 05:15 Ordered MAGNESIUM [CHEM] AM Lab 01/12/17 05:11 Ordered PHOSPHORUS [CHEM] AM Lab 01/12/17 05:11 Ordered Acetaminophen [Tylenol] Med 01/11/17 15:45 Ordered 650 mg PO Q4H PRN Glimepiride [Amaryl] Med 01/12/17 08:00 Ordered 3 mg PO WITHBREAKFAST Heparin Sodium Med 01/11/17 22:00 Ordered 5,000 units SUBCUT Q8HR Insulin Regular, Human [HumuLIN R] 100 unit Med 01/11/17 15:35 Active Sodium Chloride 0.9% [Normal Saline] 99 ml IV TITRATE Metoprolol Tartrate [Lopressor] Med 01/11/17 21:00 Ordered 25 mg PO BID Ondansetron [Zofran ODT] Med 01/11/17 15:45 Ordered 4 mg PO Q6H PRN Ondansetron [Zofran] Med 01/11/17 15:45 Ordered 4 mg IVPUSH Q6H PRN Sodium Chloride 0.9% [Normal Saline] 1,000 ml Med 01/11/17 15:45 Active IV ASDIRECTED Sodium Chloride 0.9% [Saline Flush] Med 01/11/17 15:45 Ordered 10 ml FLUSH ASDIRECTED PRN Tamsulosin [Flomax] Med 01/11/17 21:00 Ordered 1 tab PO BEDTIME Zolpidem [Ambien] Med 01/11/17 15:45 Ordered 5 mg PO BEDTIME PRN Antiembolic Hose [OM.PC] Per Unit Routine Oth 01/11/17 15:46 Ordered Peripheral IV Insertion Adult [OM.PC] Routine Oth 01/11/17 15:45 Ordered Resuscitation Status Routine Resus Stat 01/11/17 15:45 Ordered Medication Orders Acetaminophen (Tylenol) 650 mg PO Q4H PRN PRN Reason: Pain (Mild 1-3)/fever Glimepiride (Amaryl) 3 mg PO WITHBREAKFAST TARA Heparin Sodium (Porcine) (Heparin Sodium) 5,000 units SUBCUT Q8HR [facility] Insulin Human Regular 100 unit (/ Sodium Chloride) 100 mls @ 2 mls/hr IV TITRATE TARA PRN Reason: Protocol Sodium Chloride (Normal Saline) 1,000 mls @ 150 mls/hr IV ASDIRECTED TAAR Metoprolol Tartrate (Lopressor) 25 mg PO BID TARA Ondansetron HCl (Zofran) 4 mg IVPUSH Q6H PRN PRN Reason: Nausea/Vomiting Ondansetron HCl (Zofran Odt) 4 mg PO Q6H PRN PRN Reason: nausea, able to take PO Sodium Chloride (Saline Flush) 10 ml FLUSH ASDIRECTED PRN PRN Reason: Keep Vein Open Tamsulosin HCl (Flomax) mg PO BEDTIME TARA Zolpidem Tartrate (Ambien) 5 mg PO BEDTIME PRN PRN Reason: Sleep Assessment/Plan Comment:: 71-year-old gentleman who presented after a fall. The patient has a history of poorly controlled diabetes with medical noncompliance. The patient was recently seen by his primary care physician. Due to chronic kidney disease the patients metformin was stopped plan was to increase the Glimepiride to 3 mg. But the patient remained on 2 mg daily. He has not been checking his blood sugars. He has already acute treatment that he needs but did not want to do it. He has been feeling thirsty in the past few days. 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 He thought he tripped over a rug. Theres were close by thought that he fell like a brick. The patient apparently had no postictal or confusion episode after the event. 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 A few hours later the patient came into the emergency room for a checkup. Fall, less likely syncopal episode We will monitor the patient closely Acute renal failure due to dehydration due to Severe hyperglycemia Will give the patient IV fluids, Control blood sugar Follow electrolytes and replace them as needed Severe hyperglycemia due to uncontrolled diabetes The patient is not checking his blood sugars at home He stopped the metformin but did not increase the glimepiride as the plan was For now treat the patient with IV insulin drip Hydrate well Follow electrolytes Pseudohyponatremia due to severe hyperglycemia Will follow sodium with hydration DVT prophylaxis will be with subcutaneous heparin
[2017-01-11] MEDS: Metoprolol Tartrate 25 MG Tab PO SCH (20:33)
[2017-01-11] MEDS ORDERED: Tamsulosin 0.4 MG Cap.ER PO SCH (21:00)
[2017-01-11] MEDS: Heparin Sodium 5,000 Units/ML Vial SUBCUT SCH (22:16)
[2017-01-12] MEDS ORDERED: Insulin Aspart 100 Units/ML 3 ML Pen SUBCUT ONE (01:51)
[2017-01-12] MEDS: Sodium Chloride 0.9% 1,000 ML IV SCH (04:00)
[2017-01-12] MEDS: Heparin Sodium 5,000 Units/ML Vial SUBCUT SCH (06:42)
[2017-01-12 06:55] LABS: CHLORIDE,CL 109 mmol/L (101-111); SODIUM,NA 138 mmol/L (135-145)
[2017-01-12 07:36] VITALS: BP 103/53
[2017-01-12] MEDS ORDERED: Glimepiride 2 MG Tab PO SCH (08:00)
[2017-01-12] MEDS: Metoprolol Tartrate 25 MG Tab PO SCH (08:19)
[2017-01-12] MEDS: Insulin Aspart 100 Units/ML 3 ML Pen SUBCUT SCH ×2 (08:20→11:56)
--- NOTE | 2017-01-12 09:48 | PCM.DCSUM1 ---
Discharge Summary - Hospital Course Free Text/Narrative:: 71-year-old gentleman who presented after a fall. The patient has a history of poorly controlled diabetes with medical noncompliance. The patient was recently seen by his primary care physician. Due to chronic kidney disease the patients metformin was stopped plan was to increase the Glimepiride to 3 mg. But the patient remained on 2 mg daily. He has not been checking his blood sugars. He has already acute treatment that he needs but did not want to do it. He has been feeling thirsty in the past few days. 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 He thought he tripped over a rug. Theres were close by thought that he fell like a brick. The patient apparently had no postictal or confusion episode after the event. 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 A few hours later the patient came into the emergency room for a checkup. Fall, less likely syncopal episode had no neuro deficit, cardiac concerns while in hospital Acute renal failure due to dehydration due to Severe hyperglycemia resolved with IV fluids, Severe hyperglycemia due to uncontrolled diabetes The patient was not checking his blood sugars at home He stopped the metformin and glimepiride treated the patient with IV insulin drip Hydrated well he says he is willing to resume glimepridie and check his BSs at home will set up colse appt with PMD and usability strategist Pseudohyponatremia due to severe hyperglycemia resolved - Discharge Data Discharge Date: 01/12/17 Discharge Disposition: Home, Self-Care 01 Condition: Good - Discharge Diagnosis/Problem(s) (1) Hyperglycemia SNOMED Code(s): 02942956 ICD Code: R73.9 - HYPERGLYCEMIA, UNSPECIFIED Status: Acute Current Visit : Yes - Patient Instructions Diet: Diabetic Diet Activity: As Tolerated - Discharge Plan Prescriptions/Med Rec: Glimepiride [Amaryl] 3 mg PO WITHBREAKFAST #30 tablet Home Medications: Home Meds Tamsulosin [Flomax] 0.4 mg PO BEDTIME 12/03/15 [History] Metoprolol Tartrate 25 mg PO BID 07/31/16 [History] Glimepiride [Amaryl] 3 mg PO WITHBREAKFAST #30 tablet 01/12/17 [Rx] Referrals: PCP,None [Ordering Only Provider] - (dr. Yun in 2-3 days) - Discharge Summary/Plan Comment DC Time >30 min.: No - General Info Date of Service: 01/12/17 Admission Dx/Problem (Free Text: Admission Diagnosis/Problem Admission Diagnosis/Problem Hyperglycemia - Review of Systems General: Denies: Fever, Weakness Pulmonary: Denies: Shortness of Breath Cardiovascular: Denies: Chest Pain, Edema Neurological: Denies: Confusion, Dizziness - Patient Data Vitals - Most Recent: Last Vital Signs Temp 36.6 C 01/12/17 07:00 Pulse 63 01/12/17 08:19 Resp 20 01/12/17 07:00 BP 103/53 L 01/12/17 08:19 Pulse Ox 98 01/12/17 07:00 Weight - Most Recent: 98.293 kg I&O - Last 24 hours: Intake & Output 01/11/17 01/12/17 01/12/17 22:59 06:59 14:59 Intake Total 1590 1045 364 Output Total 1260 400 300 Balance 330 645 64 Lab Results - Last 24 hrs: Laboratory Results - last 24 hr 01/11/17 01/11/17 01/11/17 Range/Units 16:09 16:45 18:49 WBC (5.0-10.0) 10^3/uL RBC (4.6-6.2) 10^6/uL Hgb (14.0-18.0) g/dL Hct (40.0-54.0) % MCV (80-100) fL MCH (27.0-34.0) pg MCHC (33.0-35.0) g/dL Plt Count (150-450) 10^3/uL Neut % (Auto) (42.2-75.2) % Lymph % (Auto) (20.5-50.1) % Bryan % (Auto) (2-8) % Eos % (Auto) (1.0-3.0) % Baso % (Auto) (0.0-1.0) % Sodium (135-145) mmol/L Potassium (3.6-5.0) mmol/L Chloride (101-111) mmol/L Carbon Dioxide (21.0-31.0) mmol/L Anion Gap BUN (7-18) mg/dL Creatinine (0.6-1.3) mg/dL Est Cr Clr Drug Dosing mL/min Estimated GFR (MDRD) Glucose 782 H* (74-105) mg/dL POC Glucose > 500 H* > 500 H* (70-105) mg/dl Calcium (8.4-10.2) mg/dl Phosphorus (2.5-4.6) mg/dL Magnesium (1.8-2.5) mg/dL 01/11/17 01/11/17 01/11/17 Range/Units 19:45 20:49 21:55 WBC (5.0-10.0) 10^3/uL RBC (4.6-6.2) 10^6/uL Hgb (14.0-18.0) g/dL Hct (40.0-54.0) % MCV (80-100) fL MCH (27.0-34.0) pg MCHC (33.0-35.0) g/dL Plt Count (150-450) 10^3/uL Neut % (Auto) (42.2-75.2) % Lymph % (Auto) (20.5-50.1) % Bryan % (Auto) (2-8) % Eos % (Auto) (1.0-3.0) % Baso % (Auto) (0.0-1.0) % Sodium (135-145) mmol/L Potassium (3.6-5.0) mmol/L Chloride (101-111) mmol/L Carbon Dioxide (21.0-31.0) mmol/L Anion Gap BUN (7-18) mg/dL Creatinine (0.6-1.3) mg/dL Est Cr Clr Drug Dosing mL/min Estimated GFR (MDRD) Glucose (74-105) mg/dL POC Glucose 479 H* 367 H 305 H (70-105) mg/dl Calcium (8.4-10.2) mg/dl Phosphorus (2.5-4.6) mg/dL Magnesium (1.8-2.5) mg/dL 01/11/17 01/12/17 01/12/17 Range/Units 22:48 00:00 00:46 WBC (5.0-10.0) 10^3/uL RBC (4.6-6.2) 10^6/uL Hgb (14.0-18.0) g/dL Hct (40.0-54.0) % MCV (80-100) fL MCH (27.0-34.0) pg MCHC (33.0-35.0) g/dL Plt Count (150-450) 10^3/uL Neut % (Auto) (42.2-75.2) % Lymph % (Auto) (20.5-50.1) % Bryan % (Auto) (2-8) % Eos % (Auto) (1.0-3.0) % Baso % (Auto) (0.0-1.0) % Sodium (135-145) mmol/L Potassium (3.6-5.0) mmol/L Chloride (101-111) mmol/L Carbon Dioxide (21.0-31.0) mmol/L Anion Gap BUN (7-18) mg/dL Creatinine (0.6-1.3) mg/dL Est Cr Clr Drug Dosing mL/min Estimated GFR (MDRD) Glucose (74-105) mg/dL POC Glucose 248 H 200 H 158 H (70-105) mg/dl Calcium (8.4-10.2) mg/dl Phosphorus (2.5-4.6) mg/dL Magnesium (1.8-2.5) mg/dL 01/12/17 01/12/17 01/12/17 Range/Units 01:48 03:44 05:45 WBC (5.0-10.0) 10^3/uL RBC (4.6-6.2) 10^6/uL Hgb (14.0-18.0) g/dL Hct (40.0-54.0) % MCV (80-100) fL MCH (27.0-34.0) pg MCHC (33.0-35.0) g/dL Plt Count (150-450) 10^3/uL Neut % (Auto) (42.2-75.2) % Lymph % (Auto) (20.5-50.1) % Bryan % (Auto) (2-8) % Eos % (Auto) (1.0-3.0) % Baso % (Auto) (0.0-1.0) % Sodium (135-145) mmol/L Potassium (3.6-5.0) mmol/L Chloride (101-111) mmol/L Carbon Dioxide (21.0-31.0) mmol/L Anion Gap BUN (7-18) mg/dL Creatinine (0.6-1.3) mg/dL Est Cr Clr Drug Dosing mL/min Estimated GFR (MDRD) Glucose (74-105) mg/dL POC Glucose 109 H 130 H 136 H (70-105) mg/dl Calcium (8.4-10.2) mg/dl Phosphorus (2.5-4.6) mg/dL Magnesium (1.8-2.5) mg/dL 01/12/17 01/12/17 01/12/17 Range/Units 06:15 06:15 07:53 WBC 8.4 (5.0-10.0) 10^3/uL RBC 3.51 L (4.6-6.2) 10^6/uL Hgb 10.5 L (14.0-18.0) g/dL Hct 31.6 L (40.0-54.0) % MCV 90.0 D (80-100) fL MCH 29.9 (27.0-34.0) pg MCHC 33.2 (33.0-35.0) g/dL Plt Count 130 L (150-450) 10^3/uL Neut % (Auto) 61.2 (42.2-75.2) % Lymph % (Auto) 21.8 (20.5-50.1) % Bryan % (Auto) 10.4 H (2-8) % Eos % (Auto) 5.8 H (1.0-3.0) % Baso % (Auto) 0.8 (0.0-1.0) % Sodium 138 D (135-145) mmol/L Potassium 3.8 (3.6-5.0) mmol/L Chloride 109 D (101-111) mmol/L Carbon Dioxide 22.0 (21.0-31.0) mmol/L Anion Gap 10.8 BUN 22 H (7-18) mg/dL Creatinine 1.2 (0.6-1.3) mg/dL Est Cr Clr Drug Dosing 75.11 mL/min Estimated GFR (MDRD) > 60 Glucose 143 H (74-105) mg/dL POC Glucose 159 H (70-105) mg/dl Calcium 8.7 (8.4-10.2) mg/dl Phosphorus 3.0 (2.5-4.6) mg/dL Magnesium 1.6 L (1.8-2.5) mg/dL Med Orders - Current: Current Medications Acetaminophen (Tylenol) 650 mg PO Q4H PRN PRN Reason: Pain (Mild 1-3)/fever Glimepiride (Amaryl) 3 mg PO WITHBREAKFAST [facility] Last Admin: 01/12/17 08:19 Dose: 3 mg Heparin Sodium (Porcine) (Heparin Sodium) 5,000 units SUBCUT Q8HR [facility] Last Admin: 01/12/17 06:42 Dose: 5,000 units Insulin Aspart (Novolog) 0 unit SUBCUT TIDAC [facility] PRN Reason: Protocol Last Admin: 01/12/17 08:20 Dose: 2 units Magnesium Oxide (Magnesium Oxide) 250 mg PO BIDM [facility] Stop: 01/12/17 18:01 Last Admin: 01/12/17 08:26 Dose: 250 mg Metoprolol Tartrate (Lopressor) 25 mg PO BID [facility] Last Admin: 01/12/17 08:19 Dose: 25 mg Ondansetron HCl (Zofran) 4 mg IVPUSH Q6H PRN PRN Reason: Nausea/Vomiting Ondansetron HCl (Zofran Odt) 4 mg PO Q6H PRN PRN Reason: nausea, able to take PO Sodium Chloride (Saline Flush) 10 ml FLUSH ASDIRECTED PRN PRN Reason: Keep Vein Open Tamsulosin HCl (Flomax) 0.4 mg PO BEDTIME [facility] Last Admin: 01/11/17 20:29 Dose: 0.4 mg Zolpidem Tartrate (Ambien) 5 mg PO BEDTIME PRN PRN Reason: Sleep Discontinued Medications Sodium Chloride (Normal Saline) 1,000 mls @ 999 mls/hr IV .BOLUS ONE Stop: 01/11/17 15:12 Last Admin: 01/11/17 14:19 Dose: 999 mls/hr Insulin Human Regular 100 unit (/ Sodium Chloride) 100 mls @ 0 mls/hr IV TITRATE TARA; 2 UNITS/KG/HR PRN Reason: Protocol Insulin Human Regular 100 unit (/ Sodium Chloride) 100 mls @ 2 mls/hr IV TITRATE TARA PRN Reason: Protocol Last Titration: 01/12/17 00:48 Dose: 5 mls/hr, 5 mls/hr Sodium Chloride (Normal Saline) 1,000 mls @ 150 mls/hr IV ASDIRECTED TARA Last Admin: 01/12/17 04:00 Dose: 150 mls/hr Insulin Aspart (Novolog) 0 unit SUBCUT ONETIME ONE PRN Reason: Protocol Stop: 01/12/17 01:52 Last Admin: 01/12/17 01:59 Dose: Not Given Insulin Human Regular (Humulin R) 10 unit IV ONETIME ONE PRN Reason: Protocol Stop: 01/11/17 14:59 Last Admin: 01/11/17 15:09 Dose: 10 units Insulin Human Regular (Humulin R) 5 unit IV ONETIME ONE PRN Reason: Protocol Stop: 01/11/17 17:52 Last Admin: 01/11/17 17:56 Dose: 5 units - Exam General: Reports: Alert, Oriented Neck: Reports: Supple Lungs: Reports: Clear to Auscultation, Normal Respiratory Effort Cardiovascular: Reports: Regular Rate, Regular Rhythm GI/Abdominal Exam: Normal Bowel Sounds, Soft, Non-Tender Extremities: No Pedal Edema *Q Meaningful Use (DIS) - VTE *Q VTE Criteria *Q: - Stroke *Q Stroke Criteria *Q: - AMI *Q AMI Criteria *Q:
--- NOTE | 2017-01-13 10:02 | EKG ---
01/11/2017- JUAN VERDUGO - EKG per my reading shows sinus rhythm at a rate of 76. [facility] /[id number]
== END 2017-01-12 12:45 | disposition home or self-care (01) | DRG 420 ==
LOC: DL.ED 13:05 → DL.MS 15:04 → UNDOADMOB 15:04 → OBSVTOIN 15:04 → INTOOBSV 15:04 → OBSVTOIN 15:45 → DL.MS 15:45
PROVIDERS: ADMIT Internal Medicine; ATTEND Internal Medicine
DX: E11.65 Type 2 diabetes mellitus with hyperglycemia (principal); N17.8 Other acute kidney failure; E86.0 Dehydration; E87.1 Hypo-osmolality and hyponatremia; N18.9 Chronic kidney disease, unspecified; I12.9 Hypertensive chronic kidney disease with stage 1 through stage 4 chronic kidney disease, or unspecified chronic kidney disease; I48.91 Unspecified atrial fibrillation; Z88.8 Allergy status to other drugs, medicaments and biological substances; Z91.14 Patient's other noncompliance with medication regimen; Z79.899 Other long term (current) drug therapy; Z86.73 Personal history of transient ischemic attack (TIA), and cerebral infarction without residual deficits; Z87.891 Personal history of nicotine dependence
CPT/HCPCS: 36415; 71010; 80048; 80053; 81001; 82009; 82947; 82962; 83735; 84100; 84484; 85025; 93005; 96361; 96374; 99285; A9270-GY; G0480; J1644; J1815; J1815-GY; J7030

== ENCOUNTER 2017-02-03 11:43 | Emergency (ER) | payer BC, MEDICARE ==
[2017-02-03] MEDS ORDERED: Sodium Chloride 0.9% 1,000 ML IV ONE (11:53)
--- NOTE | 2017-02-03 12:00 | EDM.PDOC ---
ED HPI GENERAL MEDICAL PROBLEM - General Stated Complaint: IN BY AMBULANCE Time Seen by Provider: 02/03/17 11:54 Source of Information: Reports: Patient, EMS History Limitations: Reports: No Limitations - History of Present Illness INITIAL COMMENTS - FREE TEXT/NARRATIVE: This 71 yo male patient was brought to the ED by [facility] due to an episode of syncope while at school. EMS reports that the patient just fell while at the school hitting his head during the fall. 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 As he was standing back up from picking up the paper, the patient reports loosing his balance, bouncing off the floor and the wall. The patient reports no loss of consciousness before, during or after the fall. The patient reports a small cut to the right side of his head and a cut on his right elbow. The patient reports a similar episode about 1 month ago. The patient reports he has been taking his medications as prescribed (normally takes his medications at about noon), so has not taken his medications yet today. The patient reports no history of recent falls, no recent illnesses or other problems. The patient reports some lower back pain at this time, but no additional complaints. Onset: Today, Sudden Duration: Resolved Prior to Arrival Location: Reports: Head, Upper Extremity, Right Quality: Reports: Ache, Dull Severity: Moderate Improves with: Reports: Rest Worsens with: Reports: None Associated Symptoms: Reports: Other (ground level fall) Lower Back Pain Score (Numeric/FACES): 6 - Related Data Allergies Allergy/AdvReac Type Severity Reaction Status Date / Time lansoprazole [From Prevacid] Allergy Cannot Verified 10/26/16 11:36 Remember acetaminophen AdvReac Nausea Verified 10/26/16 11:36 [From Tylenol-Codeine #3] codeine phosphate AdvReac Nausea Verified 10/26/16 11:36 [From Tylenol-Codeine #3] Home Meds: Home Meds Tamsulosin [Flomax] 0.4 mg PO BEDTIME 12/03/15 [History] Metoprolol Tartrate 25 mg PO BID 07/31/16 [History] Glimepiride [Amaryl] 3 mg PO WITHBREAKFAST #30 tablet 01/12/17 [Rx] Linagliptin [Tradjenta] 5 mg PO DAILY 02/03/17 [History] Past Medical History HEENT History: Reports: Hard of Hearing, Impaired Vision Other HEENT History: wears glasses Cardiovascular History: Reports: Afib, Hypertension Respiratory History: Reports: None Gastrointestinal History: Reports: Pancreatitis, PUD, Other (See Below) Other Gastrointestinal History: ALCOHOLIC LIVER DISEASE. 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 Fracture to skull greater than 10 years Neurological History: Reports: CVA Psychiatric History: Reports: Other (See Below) Other Psychiatric History: CHRONIC ALCOHOLISM, states he has stopped drinking Endocrine/Metabolic History: Reports: Diabetes, Type II Other Endocrine/Metabolic History: diabetic ulcer and cellulitis right great toe Hematologic History: Reports: Other (See Below) Other Hematologic History: MRSA Immunologic History: Reports: None Oncologic (Cancer) History: Reports: None Dermatologic History: Reports: Other (See Below) Other Dermatologic History: CYST REMOVAL - VOICE BOX - Infectious Disease History Infectious Disease History: Reports: MRSA Other Infectious Disease History: HX of MRSA - Past Surgical History Head Surgeries/Procedures: Reports: Craniotomy Social & Family History - Family History Family Medical History: Noncontributory Neurological: Reports: Alzheimers Disease Oncologic: Reports: Other (See Below) Other Oncologic Family History: Father from cancer in bile ducts. - Tobacco Use Smoking Status *Q: Former Smoker Years of Tobacco use: 15 Packs/Tins Daily: 1.5 Used Tobacco, but Quit: Yes Month Tobacco Last Used: 1994 Second Hand Smoke Exposure: No - Caffeine Use Caffeine Use: Reports: Soda - Alcohol Use Days Per Week of Alcohol Use: 7 Number of Drinks Per Day: 6 Total Drinks Per Week: 42 - Recreational Drug Use Recreational Drug Use: Yes Drug Use in Last 12 Months: Yes Recreational Drug Type: Reports: Marijuana/Hashish Other Recreational Drug Type: "couple times a week" Recreational Drug Use Frequency: Weekly Recreational Drug Last Use: "about four days ago" - Living Situation & Occupation Living situation: Reports: Alone Occupation: Employed ED ROS GENERAL - Review of Systems Review Of Systems: ROS reveals no pertinent complaints other than HPI. - Physical Exam Exam: See Below Exam Limited By: No Limitations General Appearance: Alert, WD/WN, Mild Distress Eye Exam: Bilateral Eye: EOMI, Normal Inspection, PERRL Ears: Normal External Exam, Normal Canal, Hearing Grossly Normal, Normal TMs Nose: Normal Inspection, Normal Mucosa, No Blood Throat/Mouth: Normal Inspection, Normal Lips, Normal Teeth, Normal Gums, Normal Oropharynx, Normal Voice, No Airway Compromise Head Exam: Scalp Abrasions (right temporal area) Neck: Normal Inspection, Supple, Non-Tender, Full Range of Motion Respiratory/Chest: No Respiratory Distress, Lungs Clear, Normal Breath Sounds, No Accessory Muscle Use, Chest Non-Tender Cardiovascular: Normal Peripheral Pulses, Regular Rate, Rhythm, No Edema, No Gallop, No JVD, No Murmur, No Rub GI/Abdominal: Normal Bowel Sounds, Soft, Non-Tender, No Organomegaly, No Distention, No Abnormal Bruit, No Mass (Male) Exam: Deferred Rectal (Males) Exam: Deferred Neuro Exam (Abbreviated): Alert, Oriented, CN II-XII Intact, Normal Cognition, Normal Gait, Normal Reflexes, No Motor/Sensory Deficits Back Exam: Normal Inspection Extremities: Other (right elbow abrasion) Psychiatric: Normal Affect, Normal Mood Skin Exam: Warm, Dry, Normal Color, No Rash, Wound/Incision (right elbow abrasion) Course - Vital Signs Last Recorded V/S: Last Vital Signs Temp 36.6 C 02/03/17 12:02 Pulse 67 02/03/17 12:02 Resp 16 02/03/17 12:02 BP 131/66 02/03/17 12:02 Pulse Ox 99 02/03/17 12:02 Orthostatic Blood Pressure [ 118/59 Standing] Orthostatic Blood Pressure [ 132/67 Sitting] Orthostatic Blood Pressure [ 122/66 Supine] - Orders/Labs/Meds Orders: Active Orders 24 hr Category Date Time Status EKG Documentation Completion [RC] URGENT Care 02/03/17 11:52 Active Glucose [Blood Glucose Check, Bedside] [RC] ONETIME Care 02/03/17 11:53 Active Sodium Chloride 0.9% [Normal Saline] 1,000 ml Med 02/03/17 11:53 Active IV .BOLUS Medication Orders Sodium Chloride (Normal Saline) 1,000 mls @ 500 mls/hr IV .BOLUS ONE Stop: 02/03/17 13:52 Last Admin: 02/03/17 12:39 Dose: 500 mls/hr Labs: Laboratory Tests 02/03/17 02/03/17 02/03/17 Range/Units 11:55 12:15 12:15 WBC 8.4 (5.0-10.0) 10^3/uL RBC 3.73 L (4.6-6.2) 10^6/uL Hgb 11.3 L (14.0-18.0) g/dL Hct 34.3 L (40.0-54.0) % MCV 92.0 (80-100) fL MCH 30.3 (27.0-34.0) pg MCHC 32.9 L (33.0-35.0) g/dL Plt Count 135 L (150-450) 10^3/uL Neut % (Auto) 70.3 (42.2-75.2) % Lymph % (Auto) 13.4 L (20.5-50.1) % Mason % (Auto) 12.3 H (2-8) % Eos % (Auto) 3.5 H (1.0-3.0) % Baso % (Auto) 0.5 (0.0-1.0) % Sodium 136 (135-145) mmol/L Potassium 3.8 (3.6-5.0) mmol/L Chloride 108 (101-111) mmol/L Carbon Dioxide 21.0 (21.0-31.0) mmol/L Anion Gap 10.8 BUN 22 H (7-18) mg/dL Creatinine 1.3 (0.6-1.3) mg/dL Est Cr Clr Drug Dosing 69.33 mL/min Estimated GFR (MDRD) 55 BUN/Creatinine Ratio 16.92 Glucose 298 H (74-105) mg/dL POC Glucose 310 H (70-105) mg/dl Calcium 8.8 (8.4-10.2) mg/dl Total Bilirubin 2.0 H (0.2-1.0) mg/dL AST 103 H (10-42) IU/L ALT 65 H (10-60) IU/L Alkaline Phosphatase 660 H (42-121) IU/L Troponin I 0.02 (0.00-0.02) ng/ml Total Protein 6.9 (6.7-8.2) g/dl Albumin 2.9 L (3.2-5.5) g/dl Globulin 4.0 Albumin/Globulin Ratio 0.73 Ethyl Alcohol mg/dL 02/03/17 Range/Units 12:15 WBC (5.0-10.0) 10^3/uL RBC (4.6-6.2) 10^6/uL Hgb (14.0-18.0) g/dL Hct (40.0-54.0) % MCV (80-100) fL MCH (27.0-34.0) pg MCHC (33.0-35.0) g/dL Plt Count (150-450) 10^3/uL Neut % (Auto) (42.2-75.2) % Lymph % (Auto) (20.5-50.1) % Mason % (Auto) (2-8) % Eos % (Auto) (1.0-3.0) % Baso % (Auto) (0.0-1.0) % Sodium (135-145) mmol/L Potassium (3.6-5.0) mmol/L Chloride (101-111) mmol/L Carbon Dioxide (21.0-31.0) mmol/L Anion Gap BUN (7-18) mg/dL Creatinine (0.6-1.3) mg/dL Est Cr Clr Drug Dosing mL/min Estimated GFR (MDRD) BUN/Creatinine Ratio Glucose (74-105) mg/dL POC Glucose (70-105) mg/dl Calcium (8.4-10.2) mg/dl Total Bilirubin (0.2-1.0) mg/dL AST (10-42) IU/L ALT (10-60) IU/L Alkaline Phosphatase (42-121) IU/L Troponin I (0.00-0.02) ng/ml Total Protein (6.7-8.2) g/dl Albumin (3.2-5.5) g/dl Globulin Albumin/Globulin Ratio Ethyl Alcohol < 5 mg/dL Meds: Medications Generic Name Dose Route Start Last Admin Trade Name Freq PRN Reason Stop Dose Admin Sodium Chloride 1,000 mls @ 500 mls/hr 02/03/17 11:53 02/03/17 12:39 Normal Saline IV 02/03/17 13:52 500 mls/hr .BOLUS ONE Administration Departure - Departure Time of Disposition: 13:38 Disposition: Home, Self-Care 01 Condition: Fair Clinical Impression: Vasovagal syncope - Discharge Information Instructions: Syncope, [id number] Care Plan Goals: The patient was advised of the examination, lab and EKG results during the visit. The patient was encouraged to continue to take his medications as directed. If the patient has any additional symptoms or concerns, the patient should follow-up with his primary care facility or return to the emergency department. - My Orders Last 24 Hours: My Active Orders 02/03/17 11:52 EKG Documentation Completion [RC] URGENT 02/03/17 11:53 Glucose [Blood Glucose Check, Bedside] [RC] ONETIME Sodium Chloride 0.9% [Normal Saline] 1,000 ml IV .BOLUS - Assessment/Plan Last 24 Hours: My Active Orders 02/03/17 11:52 EKG Documentation Completion [RC] URGENT 02/03/17 11:53 Glucose [Blood Glucose Check, Bedside] [RC] ONETIME Sodium Chloride 0.9% [Normal Saline] 1,000 ml IV .BOLUS
[2017-02-03 12:03] VITALS: BP 131/66
--- NOTE | 2017-02-10 10:53 | EKG ---
02/03/2017 - JUAN VERDUGO I reviewed the EKG and agree with the machine's reading. [facility] /[id number]
== END 2017-02-03 13:55 | disposition home or self-care (01) ==
LOC: DL.ED 11:43
DX: R55 Syncope and collapse (principal); S00.01XA Abrasion of scalp, initial encounter; S50.311A Abrasion of right elbow, initial encounter; I10 Essential (primary) hypertension; Z87.891 Personal history of nicotine dependence; Z88.5 Allergy status to narcotic agent; Z79.899 Other long term (current) drug therapy; W01.10XA Fall on same level from slipping, tripping and stumbling with subsequent striking against unspecified object, initial encounter
CPT/HCPCS: 36415; 80053; 82962; 84484; 85025; 93005; 96360; 99284; G0480; J7030

== ENCOUNTER 2017-05-12 11:49 | Emergency (ER) | payer BC, MEDICARE ==
[2017-05-12 12:17] VITALS: BP 85/56
[2017-05-12 12:46] LABS: CHLORIDE,CL 109 mmol/L (101-111); SODIUM,NA 139 mmol/L (135-145)
--- NOTE | 2017-05-12 13:05 | EDM.PDOC ---
ED HPI GENERAL MEDICAL PROBLEM - General Chief Complaint: General Stated Complaint: will need help getting him in from car, weak Time Seen by Provider: 05/12/17 12:30 Source of Information: Reports: Patient, Old Records, RN, RN Notes Reviewed History Limitations: Reports: No Limitations - History of Present Illness INITIAL COMMENTS - FREE TEXT/NARRATIVE: Ramos is a 71 yo male who presents to the ED due to progressive weakness over the last 10 days. He relates that his weakness is generalized. Denies any focalizes weakness. He reports that he has noticed shortness of breath with activity, "when I got up to the bathroom this am it was really hard to catch my breath afterwards" Patient also relates that he has noticed swelling in his lower extremities over the last several days. Denies chest pain, palpitations, fever, sore throat, dysuria, or nausea/vomiting. Denies abd pain, constipation, or diarrhea. Reports decreased appetite. Onset: Gradual (Over the last 10 days) Location: Reports: Generalized Severity: Moderate Improves with: Reports: None Worsens with: Reports: Movement Associated Symptoms: Reports: Shortness of Breath, Weakness - Related Data Allergies Allergy/AdvReac Type Severity Reaction Status Date / Time lansoprazole [From Prevacid] Allergy Cannot Verified 10/26/16 11:36 Remember acetaminophen AdvReac Nausea Verified 10/26/16 11:36 [From Tylenol-Codeine #3] codeine phosphate AdvReac Nausea Verified 10/26/16 11:36 [From Tylenol-Codeine #3] Home Meds: Home Meds Tamsulosin [Flomax] 0.4 mg PO BEDTIME 12/03/15 [History] Metoprolol Tartrate 1.5 tab PO BID 07/31/16 [History] Linagliptin [Tradjenta] 5 mg PO DAILY 02/03/17 [History] Aspirin [Ecotrin] 1 tab PO TID PRN 05/12/17 [History] Clobetasol Propionate [Clobetasol Propionate] 1 applic TOP BID 05/12/17 [History ] hydrOXYzine HCl [hydrOXYzine] 1 tab PO TID 05/12/17 [History] Past Medical History HEENT History: Reports: Hard of Hearing, Impaired Vision Other HEENT History: wears glasses Cardiovascular History: Reports: Afib, Hypertension Respiratory History: Reports: None Gastrointestinal History: Reports: Pancreatitis, PUD, Other (See Below) Other Gastrointestinal History: ALCOHOLIC LIVER DISEASE. 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 Fracture to skull greater than 10 years Neurological History: Reports: CVA Psychiatric History: Reports: Other (See Below) Other Psychiatric History: CHRONIC ALCOHOLISM, states he has stopped drinking Endocrine/Metabolic History: Reports: Diabetes, Type II Other Endocrine/Metabolic History: diabetic ulcer and cellulitis right great toe Hematologic History: Reports: Other (See Below) Other Hematologic History: MRSA Immunologic History: Reports: None Oncologic (Cancer) History: Reports: None Dermatologic History: Reports: Other (See Below) Other Dermatologic History: CYST REMOVAL - VOICE BOX - Infectious Disease History Infectious Disease History: Reports: MRSA Other Infectious Disease History: HX of MRSA - Past Surgical History Head Surgeries/Procedures: Reports: Craniotomy Social & Family History - Family History Family Medical History: Noncontributory Neurological: Reports: Alzheimers Disease Oncologic: Reports: Other (See Below) Other Oncologic Family History: Father from cancer in bile ducts. - Tobacco Use Smoking Status *Q: Former Smoker Years of Tobacco use: 15 Packs/Tins Daily: 1.5 Used Tobacco, but Quit: Yes Month/Year Tobacco Last Used: 1994 Second Hand Smoke Exposure: No - Caffeine Use Caffeine Use: Reports: Soda - Alcohol Use Days Per Week of Alcohol Use: 7 Number of Drinks Per Day: 6 Total Drinks Per Week: 42 - Recreational Drug Use Recreational Drug Use: Yes Drug Use in Last 12 Months: Yes Recreational Drug Type: Reports: Marijuana/Hashish Other Recreational Drug Type: "couple times a week" Recreational Drug Use Frequency: Weekly Recreational Drug Last Use: "about four days ago" - Living Situation & Occupation Living situation: Reports: Alone Occupation: Employed ED ROS GENERAL - Review of Systems Review Of Systems: ROS reveals no pertinent complaints other than HPI. ED EXAM, GENERAL - Physical Exam Exam: See Below Exam Limited By: No Limitations General Appearance: Alert, WD/WN, No Apparent Distress Eye Exam: Bilateral Eye: EOMI, PERRL Ears: Normal External Exam, Normal Canal, Hearing Grossly Normal, Normal TMs Ear Exam: Bilateral Ear: Auricle Normal, Canal Normal, TM normal Nose: Normal Inspection, Normal Mucosa, No Blood Throat/Mouth: Normal Inspection, Normal Lips, Normal Teeth, Normal Gums, Normal Oropharynx, Normal Voice, No Airway Compromise Head: Atraumatic, Normocephalic Neck: Normal Inspection, Supple, Non-Tender, Full Range of Motion Respiratory/Chest: No Respiratory Distress, Lungs Clear, Normal Breath Sounds, No Accessory Muscle Use, Chest Non-Tender Cardiovascular: Normal Peripheral Pulses, Regular Rate, Rhythm, No Edema, No Gallop, No JVD, No Murmur, No Rub GI/Abdominal: Normal Bowel Sounds, Non-Tender, Hernia (Patient has an inguinal hernia), Other (Abd firm on palpation. ) (Male) Exam: Deferred Rectal (Males) Exam: Deferred Back Exam: Normal Inspection, Full Range of Motion, NT Extremities: Normal Inspection, Normal Range of Motion, Non-Tender, Normal Capillary Refill, No Pedal Edema Neurological: Alert, Oriented, CN II-XII Intact, Normal Cognition, Normal Reflexes, No Motor/Sensory Deficits, Other (Weakness noted on arrival assist of one staff to get out of car. Uses a cane ) Psychiatric: Normal Affect, Normal Mood Skin Exam: Warm, Dry, Intact, Normal Color, No Rash Lymphatic: No Adenopathy Course - Vital Signs Last Recorded V/S: Last Vital Signs Temp 36.3 C 05/12/17 11:53 Pulse 62 05/12/17 11:53 Resp 16 05/12/17 11:53 BP 85/56 L 05/12/17 11:53 Pulse Ox 97 05/12/17 11:53 - Orders/Labs/Meds Orders: Active Orders 24 hr Category Date Time Status EKG Documentation Completion [RC] URGENT Care 05/12/17 13:11 Ordered DRUG SCREEN URINE BIORAD [URCHEM] Stat Lab 05/12/17 12:06 Ordered UA W/MICROSCOPIC [URIN] Stat Lab 05/12/17 12:06 Ordered Sodium Chloride 0.9% [Normal Saline] 1,000 ml Med 05/12/17 13:42 Ordered IV .BOLUS Medication Orders Sodium Chloride (Normal Saline) 1,000 mls @ 125 mls/hr IV .BOLUS ONE Stop: 05/12/17 21:41 Last Admin: 05/12/17 13:46 Dose: 125 mls/hr Labs: Laboratory Tests 05/12/17 05/12/17 05/12/17 Range/Units 12:17 12:17 12:17 WBC 8.1 (5.0-10.0) 10^3/uL RBC 4.43 L (4.6-6.2) 10^6/uL Hgb 13.6 L D (14.0-18.0) g/dL Hct 40.1 (40.0-54.0) % MCV 90.5 (80-100) fL MCH 30.7 (27.0-34.0) pg MCHC 33.9 (33.0-35.0) g/dL Plt Count 205 (150-450) 10^3/uL Neut % (Auto) 62.8 (42.2-75.2) % Lymph % (Auto) 15.8 L (20.5-50.1) % [place] % (Auto) 12.9 H (2-8) % Eos % (Auto) 7.1 H (1.0-3.0) % Baso % (Auto) 1.4 H (0.0-1.0) % Sodium 139 (135-145) mmol/L Potassium 4.2 (3.6-5.0) mmol/L Chloride 109 (101-111) mmol/L Carbon Dioxide 23.0 (21.0-31.0) mmol/L Anion Gap 11.2 BUN 24 H (7-18) mg/dL Creatinine 1.5 H (0.6-1.3) mg/dL Est Cr Clr Drug Dosing 60.09 mL/min Estimated GFR (MDRD) 46 BUN/Creatinine Ratio 16.00 Glucose 176 H (74-105) mg/dL Calcium 8.3 L (8.4-10.2) mg/dl Magnesium 1.9 (1.8-2.5) mg/dL Total Bilirubin 2.0 H (0.2-1.0) mg/dL GGT (7-64) IU/L AST 55 H (10-42) IU/L ALT 27 (10-60) IU/L Alkaline Phosphatase 257 H (42-121) IU/L Ammonia 29 (11-35) umol/L Troponin I (0.00-0.02) ng/ml B-Natriuretic Peptide (0-100) pg/ml Total Protein 6.1 L (6.7-8.2) g/dl Albumin 2.2 L (3.2-5.5) g/dl Globulin 3.9 Albumin/Globulin Ratio 0.56 Amylase 14 L (28-100) U/L Lipase < 10 L (22-51) U/L Ethyl Alcohol < 5 mg/dL 05/12/17 05/12/17 Range/Units 12:17 12:17 WBC (5.0-10.0) 10^3/uL RBC (4.6-6.2) 10^6/uL Hgb (14.0-18.0) g/dL Hct (40.0-54.0) % MCV (80-100) fL MCH (27.0-34.0) pg MCHC (33.0-35.0) g/dL Plt Count (150-450) 10^3/uL Neut % (Auto) (42.2-75.2) % Lymph % (Auto) (20.5-50.1) % [place] % (Auto) (2-8) % Eos % (Auto) (1.0-3.0) % Baso % (Auto) (0.0-1.0) % Sodium (135-145) mmol/L Potassium (3.6-5.0) mmol/L Chloride (101-111) mmol/L Carbon Dioxide (21.0-31.0) mmol/L Anion Gap BUN (7-18) mg/dL Creatinine (0.6-1.3) mg/dL Est Cr Clr Drug Dosing mL/min Estimated GFR (MDRD) BUN/Creatinine Ratio Glucose (74-105) mg/dL Calcium (8.4-10.2) mg/dl Magnesium (1.8-2.5) mg/dL Total Bilirubin (0.2-1.0) mg/dL GGT 86 H (7-64) IU/L AST (10-42) IU/L ALT (10-60) IU/L Alkaline Phosphatase (42-121) IU/L Ammonia (11-35) umol/L Troponin I 0.03 H* (0.00-0.02) ng/ml B-Natriuretic Peptide 187 H (0-100) pg/ml Total Protein (6.7-8.2) g/dl Albumin (3.2-5.5) g/dl Globulin Albumin/Globulin Ratio Amylase (28-100) U/L Lipase (22-51) U/L Ethyl Alcohol mg/dL Meds: Medications Generic Name Dose Route Start Last Admin Trade Name Derrick PRN Reason Stop Dose Admin Sodium Chloride 1,000 mls @ 125 mls/hr 05/12/17 13:42 05/12/17 13:46 Normal Saline IV 05/12/17 21:41 125 mls/hr .BOLUS ONE Administration - Radiology Interpretation Free Text/Narrative:: 1430-Dr Rojas into see and evaluate patient for possible admission. Due to his history of pancreatitis, cirrhosis, and abd distention he felt it was best to send him to [place] for further evaluation. 1507: Discussed patient case with Dr Orozco and has agreed to accept the patient. Departure - Departure Time of Disposition: 15:03 Disposition: DC/Tfer to Acute Hospital 02 Condition: Good Clinical Impression: Shortness of breath Cirrhosis of liver Qualifiers: Hepatic cirrhosis type: unspecified hepatic cirrhosis Ascites presence: with ascites Qualified Code(s): K74.60 - Unspecified cirrhosis of liver Acute renal failure Qualifiers: Acute renal failure type: unspecified Qualified Code(s): N17.9 - Acute kidney failure, unspecified - Discharge Information Forms[facility] Goals: Discussed the patient's history, examination, lab and x-ray results with Dr. Kenny (Hospitalist with [facility] in [place]). Dr. Kenny accepted the patient for continued evaluation and further management as a patient at [facility] in [place]. The patient will be transported by [facility]. The examination, evaluation, testing results and treatment's were reviewed during the patient's stay. I agree with the assessment and treatment plan for this patient. - My Orders Last 24 Hours: My Active Orders 05/12/17 12:06 DRUG SCREEN URINE BIORAD [URCHEM] Stat UA W/MICROSCOPIC [URIN] Stat 05/12/17 13:11 EKG Documentation Completion [RC] URGENT 05/12/17 13:42 Sodium Chloride 0.9% [Normal Saline] 1,000 ml IV .BOLUS - Assessment/Plan Last 24 Hours: My Active Orders 05/12/17 12:06 DRUG SCREEN URINE BIORAD [URCHEM] Stat UA W/MICROSCOPIC [URIN] Stat 05/12/17 13:11 EKG Documentation Completion [RC] URGENT 05/12/17 13:42 Sodium Chloride 0.9% [Normal Saline] 1,000 ml IV .BOLUS
[2017-05-12] MEDS: Sodium Chloride 0.9% 1,000 ML IV ONE (13:46)
--- NOTE | 2017-05-12 14:24 | CR ---
CLINICAL HISTORY: 71-year-old male complaining of shortness of breath. INTERPRETATION: Asymmetric new elevation right hemidiaphragm and dependent new subpulmonic pleural ef fusion on the left since previous exam of 11 January 2017. Cardiac silhouette remains within normal limits on this AP exam and there is no current cephalization of vascular flow or signs of alveolar edema. No new lung mass, hilar lymphadenopathy or focal lobar pneumonia. Abnormal (see changes since 2016 mentioned above).
--- NOTE | 2017-05-13 17:38 | EKG ---
05/12/2017 - JUAN VERDUGO - TIME: 1318 hours. FINDINGS: EKG shows sinus bradycardia with borderline T-wave abnormalities, low voltage. [facility] /[id number]
== END 2017-05-12 15:35 ==
LOC: DL.ED 11:49
DX: K74.60 Unspecified cirrhosis of liver (principal); N17.9 Acute kidney failure, unspecified; R06.02 Shortness of breath; I10 Essential (primary) hypertension; E11.9 Type 2 diabetes mellitus without complications; Z88.6 Allergy status to analgesic agent; Z88.5 Allergy status to narcotic agent; Z88.8 Allergy status to other drugs, medicaments and biological substances; Z79.82 Long term (current) use of aspirin; Z79.899 Other long term (current) drug therapy; Z87.891 Personal history of nicotine dependence
CPT/HCPCS: 36415; 71046; 80053; 82140; 82150; 82977; 83690; 83735; 83880; 84484; 85025; 93005; 96360; 96361; 99285; G0480; J7030

== ENCOUNTER 2017-05-28 15:18 | Emergency (ER) | payer BC, MEDICARE ==
[2017-05-28] MEDS ORDERED: Sodium Chloride 0.9% 10 ML Syringe FLUSH PRN (16:22)
[2017-05-28 16:30] VITALS: BP 105/71
--- NOTE | 2017-05-28 17:33 | EDM.PDOC ---
Scribed by Smiley Fournier 05/28/17 1733 for Augustus Acuña MD ED HPI GENERAL MEDICAL PROBLEM - General Chief Complaint: General Stated Complaint: [id number] ABD FILLED WITH FLUID Time Seen by Provider: 05/28/17 15:20 Source of Information: Reports: Patient, RN, RN Notes Reviewed History Limitations: Reports: No Limitations - History of Present Illness INITIAL COMMENTS - FREE TEXT/NARRATIVE: Patient arrives from home by POV with complaint of increased ascites with lower extremity edema getting worse over the last few days. Today patient developed shortness of breath, which he attributes to his abdomen getting "so full of fluid that is smashes my lungs". Patient denies fever, chills, nausea, vomiting , diarrhea, constipation, or abdominal pain. Admits to abdominal discomfort but "not pain". Duration: Getting Worse Location: Reports: Abdomen Quality: Reports: Ache Severity: Severe Improves with: Reports: None Worsens with: Reports: None Associated Symptoms: Reports: No Other Symptoms - Related Data Allergies Allergy/AdvReac Type Severity Reaction Status Date / Time lansoprazole [From Prevacid] Allergy Cannot Verified 05/28/17 16:30 Remember acetaminophen AdvReac Nausea Verified 05/28/17 16:30 [From Tylenol-Codeine #3] codeine phosphate AdvReac Nausea Verified 05/28/17 16:30 [From Tylenol-Codeine #3] Home Meds: Home Meds Tamsulosin [Flomax] 0.4 mg PO BEDTIME 12/03/15 [History] Metoprolol Tartrate 1.5 tab PO BID 07/31/16 [History] Linagliptin [Tradjenta] 5 mg PO DAILY 02/03/17 [History] Aspirin [Ecotrin] 1 tab PO TID PRN 05/12/17 [History] Clobetasol Propionate 1 applic TOP BID 05/12/17 [History] hydrOXYzine HCl [hydrOXYzine] 1 tab PO TID 05/12/17 [History] Past Medical History HEENT History: Reports: Hard of Hearing, Impaired Vision Other HEENT History: wears glasses Cardiovascular History: Reports: Afib, Hypertension Respiratory History: Reports: None Gastrointestinal History: Reports: Pancreatitis, PUD, Other (See Below) Other Gastrointestinal History: ALCOHOLIC LIVER DISEASE. 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 Fracture to skull greater than 10 years Neurological History: Reports: CVA Psychiatric History: Reports: Other (See Below) Other Psychiatric History: CHRONIC ALCOHOLISM, states he has stopped drinking Endocrine/Metabolic History: Reports: Diabetes, Type II Other Endocrine/Metabolic History: diabetic ulcer and cellulitis right great toe Hematologic History: Reports: Other (See Below) Other Hematologic History: MRSA Immunologic History: Reports: None Oncologic (Cancer) History: Reports: None Dermatologic History: Reports: Other (See Below) Other Dermatologic History: CYST REMOVAL - VOICE BOX - Infectious Disease History Infectious Disease History: Reports: MRSA Other Infectious Disease History: HX of MRSA - Past Surgical History Head Surgeries/Procedures: Reports: Craniotomy GI Surgical History: Reports: Abdominal paracentesis Social & Family History - Family History Family Medical History: Noncontributory Neurological: Reports: Alzheimers Disease Oncologic: Reports: Other (See Below) Other Oncologic Family History: Father from cancer in bile ducts. - Tobacco Use Smoking Status *Q: Former Smoker Years of Tobacco use: 15 Packs/Tins Daily: 1.5 Used Tobacco, but Quit: Yes Month/Year Tobacco Last Used: 1994 Second Hand Smoke Exposure: No - Caffeine Use Caffeine Use: Reports: Soda - Alcohol Use Days Per Week of Alcohol Use: 7 Number of Drinks Per Day: 6 Total Drinks Per Week: 42 - Recreational Drug Use Recreational Drug Use: Yes Drug Use in Last 12 Months: Yes Recreational Drug Type: Reports: Marijuana/Hashish Other Recreational Drug Type: "couple times a week" Recreational Drug Use Frequency: Weekly Recreational Drug Last Use: "about four days ago" - Living Situation & Occupation Living situation: Reports: Alone Occupation: Employed ED ROS GENERAL - Review of Systems Review Of Systems: ROS reveals no pertinent complaints other than HPI. ED EXAM, GENERAL - Physical Exam Exam: See Below Exam Limited By: No Limitations General Appearance: Alert, No Apparent Distress, Other (chronically ill appearing.) Eye Exam: Bilateral Eye: Other (no scleral icterus) Head: Atraumatic, Normocephalic Neck: Normal Inspection, Supple, Non-Tender, Full Range of Motion Respiratory/Chest: No Respiratory Distress, No Accessory Muscle Use, Chest Non- Tender, Decreased Breath Sounds, Crackles. No: Rhonchi, Wheezing Cardiovascular: Normal Peripheral Pulses, Regular Rate, Rhythm, No Edema, No Gallop, No JVD, No Murmur, No Rub GI/Abdominal: Soft, Non-Tender, No Distention, Other (protuberant soft abdomen with ascites fluid wave). No: Guarding, Rigid, Rebound (Male) Exam: Deferred Rectal (Males) Exam: Deferred Back Exam: Normal Inspection, Full Range of Motion, NT Extremities: Other (normal exceptfor2+ pitting edema to knees bilateral) Neurological: Alert, Oriented, CN II-XII Intact, Normal Cognition, Normal Gait, Normal Reflexes, No Motor/Sensory Deficits Psychiatric: Anxious Skin Exam: Other (chronic ecchymotic patches on bilateral upper extremities. ) Course - Vital Signs Last Recorded V/S: Last Vital Signs Temp 37.0 C 05/28/17 16:00 Pulse 89 05/28/17 16:00 Resp 16 05/28/17 16:00 BP 105/71 05/28/17 16:00 Pulse Ox 97 05/28/17 16:00 - Orders/Labs/Meds Orders: Active Orders 24 hr Category Date Time Status Peripheral IV Care [RC] . DIRECTED Care 05/28/17 16:22 Active Chest 2V [CR] Stat Exams 05/28/17 16:22 Taken UA W/MICROSCOPIC [URIN] Stat Lab 05/28/17 16:22 Ordered Sodium Chloride 0.9% [Saline Flush] Med 05/28/17 16:22 Active 10 ml FLUSH ASDIRECTED PRN Peripheral IV Insertion Adult [OM.PC] Stat Oth 05/28/17 16:22 Ordered Medication Orders Sodium Chloride (Saline Flush) 10 ml FLUSH ASDIRECTED PRN PRN Reason: Keep Vein Open Last Admin: 05/28/17 16:54 Dose: 10 ml Labs: Laboratory Tests 05/28/17 05/28/17 05/28/17 Range/Units 16:52 16:52 16:52 WBC 8.2 (5.0-10.0) 10^3/uL RBC 4.56 L (4.6-6.2) 10^6/uL Hgb 13.9 L (14.0-18.0) g/dL Hct 40.5 (40.0-54.0) % MCV 88.8 (80-100) fL MCH 30.5 (27.0-34.0) pg MCHC 34.3 (33.0-35.0) g/dL Plt Count 228 (150-450) 10^3/uL Neut % (Auto) 67.2 (42.2-75.2) % Lymph % (Auto) 14.0 L (20.5-50.1) % [place] % (Auto) 17.2 H (2-8) % Eos % (Auto) 0.9 L (1.0-3.0) % Baso % (Auto) 0.7 (0.0-1.0) % PT 22.9 H D (9.0-12.0) SEC INR 2.3 H (0.9-1.2) APTT 36.0 H (22.0-34.0) SEC Sodium 135 (135-145) mmol/L Potassium 3.0 L (3.6-5.0) mmol/L Chloride 107 (101-111) mmol/L Carbon Dioxide 17.0 L (21.0-31.0) mmol/L Anion Gap 14.0 BUN 19 H (7-18) mg/dL Creatinine 1.6 H (0.6-1.3) mg/dL Est Cr Clr Drug Dosing 56.33 mL/min Estimated GFR (MDRD) 43 BUN/Creatinine Ratio 11.87 Glucose 203 H (74-105) mg/dL Calcium 8.6 (8.4-10.2) mg/dl Total Bilirubin 1.8 H (0.2-1.0) mg/dL AST 57 H (10-42) IU/L ALT 30 (10-60) IU/L Alkaline Phosphatase 252 H (42-121) IU/L Ammonia (11-35) umol/L B-Natriuretic Peptide 67 (0-100) pg/ml Total Protein 6.8 (6.7-8.2) g/dl Albumin 2.8 L (3.2-5.5) g/dl Globulin 4.0 Albumin/Globulin Ratio 0.70 Amylase 38 (28-100) U/L Lipase 15 L (22-51) U/L 05/28/17 Range/Units 16:52 WBC (5.0-10.0) 10^3/uL RBC (4.6-6.2) 10^6/uL Hgb (14.0-18.0) g/dL Hct (40.0-54.0) % MCV (80-100) fL MCH (27.0-34.0) pg MCHC (33.0-35.0) g/dL Plt Count (150-450) 10^3/uL Neut % (Auto) (42.2-75.2) % Lymph % (Auto) (20.5-50.1) % [place] % (Auto) (2-8) % Eos % (Auto) (1.0-3.0) % Baso % (Auto) (0.0-1.0) % PT (9.0-12.0) SEC INR (0.9-1.2) APTT (22.0-34.0) SEC Sodium (135-145) mmol/L Potassium (3.6-5.0) mmol/L Chloride (101-111) mmol/L Carbon Dioxide (21.0-31.0) mmol/L Anion Gap BUN (7-18) mg/dL Creatinine (0.6-1.3) mg/dL Est Cr Clr Drug Dosing mL/min Estimated GFR (MDRD) BUN/Creatinine Ratio Glucose (74-105) mg/dL Calcium (8.4-10.2) mg/dl Total Bilirubin (0.2-1.0) mg/dL AST (10-42) IU/L ALT (10-60) IU/L Alkaline Phosphatase (42-121) IU/L Ammonia 23 (11-35) umol/L B-Natriuretic Peptide (0-100) pg/ml Total Protein (6.7-8.2) g/dl Albumin (3.2-5.5) g/dl Globulin Albumin/Globulin Ratio Amylase (28-100) U/L Lipase (22-51) U/L Meds: Medications Generic Name Dose Route Start Last Admin Trade Name Freq PRN Reason Stop Dose Admin Sodium Chloride 10 ml 05/28/17 16:22 05/28/17 16:54 Saline Flush FLUSH 10 ml ASDIRECTED PRN Administration Keep Vein Open - Radiology Interpretation Free Text/Narrative:: Chest x-ray: Elevated right hemidiaphragm Chest unchanged from prior study. See rad report. Departure - Departure Time of Disposition: 17:30 Disposition: DC/Tfer to Acute Hospital 02 Condition: Serious Clinical Impression: Ascites Qualifiers: Ascites type: due to alcoholic cirrhosis Qualified Code(s): K70.31 - Alcoholic cirrhosis of liver with ascites Cirrhosis Qualifiers: Hepatic cirrhosis type: alcoholic cirrhosis Ascites presence: with ascites Qualified Code(s): K70.31 - Alcoholic cirrhosis of liver with ascites Chronic liver failure Qualifiers: Hepatic coma status: without hepatic coma Qualified Code(s): K72.10 - Chronic hepatic failure without coma - Discharge Information Forms: ED Department Discharge, Interfacility Transfer [facility] - My Orders Last 24 Hours: My Active Orders 05/28/17 16:22 Peripheral IV Care [RC] . DIRECTED Chest 2V [CR] Stat UA W/MICROSCOPIC [URIN] Stat Sodium Chloride 0.9% [Saline Flush] 10 ml FLUSH ASDIRECTED PRN Peripheral IV Insertion Adult [OM.PC] Stat - Assessment/Plan Last 24 Hours: My Active Orders 05/28/17 16:22 Peripheral IV Care [RC] . DIRECTED Chest 2V [CR] Stat UA W/MICROSCOPIC [URIN] Stat Sodium Chloride 0.9% [Saline Flush] 10 ml FLUSH ASDIRECTED PRN Peripheral IV Insertion Adult [OM.PC] Stat I have read and agree with the documentation that has been completed regarding this visit. By signing this record, I attest that the documentation was completed in my physical presence and is an accurate record of the encounter.
== END 2017-05-28 18:07 ==
LOC: DL.ED 15:18
DX: K72.10 Chronic hepatic failure without coma (principal); K70.31 Alcoholic cirrhosis of liver with ascites; I10 Essential (primary) hypertension; E11.9 Type 2 diabetes mellitus without complications; Z88.8 Allergy status to other drugs, medicaments and biological substances; Z88.5 Allergy status to narcotic agent; Z79.899 Other long term (current) drug therapy; Z87.891 Personal history of nicotine dependence
CPT/HCPCS: 36415; 71046; 80053; 82140; 82150; 83690; 83880; 85025; 85610; 85730; 99285; J7050

== ENCOUNTER 2017-07-23 10:06 | Emergency (ER) | payer BC, MEDICARE ==
--- NOTE | 2017-07-23 10:10 | EDM.PDOC ---
ED HPI GENERAL MEDICAL PROBLEM - General Chief Complaint: Wound Recheck Stated Complaint: NO PHONE# STITCHES NEED TAKEN OUT Time Seen by Provider: 07/23/17 10:10 Source of Information: Reports: Patient, RN, RN Notes Reviewed History Limitations: Reports: No Limitations - History of Present Illness INITIAL COMMENTS - FREE TEXT/NARRATIVE: Pt presents from home by POV with request for suture removal from TIPS procedure done at [facility] on 07/01/17. Pt states the surgeon told him he could f/u locally to have the sutures removed in 10 days. Denies any other complaints. Onset Date: 08/01/17 Duration: Constant Location: Reports: Abdomen Quality: Reports: Other (denies pain) Associated Symptoms: Reports: No Other Symptoms - Related Data Allergies Allergy/AdvReac Type Severity Reaction Status Date / Time lansoprazole [From Prevacid] Allergy Cannot Verified 05/28/17 16:30 Remember acetaminophen AdvReac Nausea Verified 05/28/17 16:30 [From Tylenol-Codeine #3] codeine phosphate AdvReac Nausea Verified 05/28/17 16:30 [From Tylenol-Codeine #3] Home Meds: Home Meds Tamsulosin [Flomax] 0.4 mg PO BEDTIME 12/03/15 [History] Metoprolol Tartrate 1.5 tab PO BID 07/31/16 [History] Linagliptin [Tradjenta] 5 mg PO DAILY 02/03/17 [History] Aspirin [Ecotrin] 1 tab PO TID PRN 05/12/17 [History] Clobetasol Propionate 1 applic TOP BID 05/12/17 [History] hydrOXYzine HCl [hydrOXYzine] 1 tab PO TID 05/12/17 [History] Past Medical History HEENT History: Reports: Hard of Hearing, Impaired Vision Other HEENT History: wears glasses Cardiovascular History: Reports: Afib, Hypertension Respiratory History: Reports: None Gastrointestinal History: Reports: Cirrhosis, Pancreatitis, PUD, Other (See Below) Other Gastrointestinal History: ALCOHOLIC LIVER DISEASE. 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 Fracture to skull greater than 10 years Neurological History: Reports: CVA Psychiatric History: Reports: Other (See Below) Other Psychiatric History: CHRONIC ALCOHOLISM, states he has stopped drinking Endocrine/Metabolic History: Reports: Diabetes, Type II Other Endocrine/Metabolic History: diabetic ulcer and cellulitis right great toe Hematologic History: Reports: Other (See Below) Other Hematologic History: MRSA Immunologic History: Reports: None Oncologic (Cancer) History: Reports: None Dermatologic History: Reports: Other (See Below) Other Dermatologic History: CYST REMOVAL - VOICE BOX - Infectious Disease History Infectious Disease History: Reports: MRSA Other Infectious Disease History: HX of MRSA - Past Surgical History Head Surgeries/Procedures: Reports: Craniotomy GI Surgical History: Reports: Abdominal paracentesis, Other (See Below) (TIPS 12/09) Social & Family History - Family History Family Medical History: Noncontributory Neurological: Reports: Alzheimers Disease Oncologic: Reports: Other (See Below) Other Oncologic Family History: Father from cancer in bile ducts. - Caffeine Use Caffeine Use: Reports: Soda - Living Situation & Occupation Living situation: Reports: Single, Alone Occupation: Retired ED ROS GENERAL - Review of Systems Review Of Systems: ROS reveals no pertinent complaints other than HPI. ED EXAM, SKIN/RASH Exam: See Below Exam Limited By: No Limitations General Appearance: Alert, No Apparent Distress, Cachetic, Other (chronically ill appearing) Throat/Mouth: Normal Voice Respiratory/Chest: No Respiratory Distress GI/Abdominal: Soft, Non-Tender, Other (Prolene suture at RLQ abdomen with well healed surgical incision, no erythema, no swelling, no sign of infection.) Neurological: Alert, Normal Cognition, No Motor/Sensory Deficits Psychiatric: Normal Mood Skin: Warm, Dry, Intact, Normal Color Course - Re-Assessments/Exams Free Text/Narrative Re-Assessment/Exam: 07/23/17 10:26 Sutures removed by RN. Departure - Departure Time of Disposition: 10:24 Disposition: Home, Self-Care 01 Condition: Good Clinical Impression: Encounter for removal of sutures, Encounter for postoperative wound check - Discharge Information Instructions: Suture Removal, Care After Referrals: Tasia Busch MD [Primary Care Provider] - Forms: ED Department Discharge Additional Instructions: Follow up with your surgeon if any further problems.
[2017-07-23 10:28] VITALS: BP 91/55
== END 2017-07-23 10:37 | disposition home or self-care (01) ==
LOC: DL.ED 10:06
DX: Z48.815 Encounter for surgical aftercare following surgery on the digestive system (principal); I10 Essential (primary) hypertension; I48.91 Unspecified atrial fibrillation; Z88.6 Allergy status to analgesic agent; Z88.8 Allergy status to other drugs, medicaments and biological substances; Z88.5 Allergy status to narcotic agent; Z79.82 Long term (current) use of aspirin; Z79.899 Other long term (current) drug therapy
CPT/HCPCS: 99281

== ENCOUNTER 2017-07-24 17:46 | Emergency (ER) | payer BC, MEDICARE ==
[2017-07-24 18:15] VITALS: BP 88/60
--- NOTE | 2017-07-24 18:59 | EDM.PDOC ---
Scribed by Smiley Fournier 07/24/17 1851 for Augustus Acuña MD <Augustus Acuña - Last Filed: 07/24/17 18:58> ED HPI GENERAL MEDICAL PROBLEM - General Chief Complaint: Syncope Stated Complaint: BY AMBULANCE Time Seen by Provider: 07/24/17 18:08 Source of Information: Reports: Patient, EMS, EMS Notes Reviewed, RN, RN Notes Reviewed History Limitations: Reports: No Limitations - History of Present Illness INITIAL COMMENTS - FREE TEXT/NARRATIVE: Patient presents to ER by ambulance with complaint of lightheadedness/near syncope recurrently throughout the day. Symptoms began this morning. Denies fever, chills or any other symptoms. Denied any loss of consciousness. Pt had a TIPS procedure 11 days ago in [place]. Onset: Today Location: Reports: Head Severity: Severe Improves with: Reports: None Worsens with: Reports: None Associated Symptoms: Reports: No Other Symptoms - Related Data Allergies Allergy/AdvReac Type Severity Reaction Status Date / Time lansoprazole [From Prevacid] Allergy Cannot Verified 07/24/17 18:10 Remember acetaminophen AdvReac Nausea Verified 07/24/17 18:10 [From Tylenol-Codeine #3] codeine phosphate AdvReac Nausea Verified 07/24/17 18:10 [From Tylenol-Codeine #3] Home Meds: Home Meds Tamsulosin [Flomax] 0.4 mg PO BEDTIME 12/03/15 [History] Metoprolol Tartrate 1.5 tab PO BID 07/31/16 [History] Linagliptin [Tradjenta] 5 mg PO DAILY 02/03/17 [History] Aspirin [Ecotrin] 1 tab PO TID PRN 05/12/17 [History] Clobetasol Propionate 1 applic TOP BID 05/12/17 [History] hydrOXYzine HCl [hydrOXYzine] 1 tab PO TID 05/12/17 [History] Past Medical History HEENT History: Reports: Hard of Hearing, Impaired Vision Other HEENT History: wears glasses Cardiovascular History: Reports: Afib, Hypertension Respiratory History: Reports: None Gastrointestinal History: Reports: Cirrhosis, Pancreatitis, PUD, Other (See Below) Other Gastrointestinal History: ALCOHOLIC LIVER DISEASE. 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 Fracture to skull greater than 10 years Neurological History: Reports: CVA Psychiatric History: Reports: Other (See Below) Other Psychiatric History: CHRONIC ALCOHOLISM, states he has stopped drinking Endocrine/Metabolic History: Reports: Diabetes, Type II Other Endocrine/Metabolic History: diabetic ulcer and cellulitis right great toe Hematologic History: Reports: Other (See Below) Other Hematologic History: MRSA Immunologic History: Reports: None Oncologic (Cancer) History: Reports: None Dermatologic History: Reports: Other (See Below) Other Dermatologic History: CYST REMOVAL - VOICE BOX - Infectious Disease History Infectious Disease History: Reports: MRSA Other Infectious Disease History: HX of MRSA - Past Surgical History Head Surgeries/Procedures: Reports: Craniotomy GI Surgical History: Reports: Abdominal paracentesis, Other (See Below) Social & Family History - Family History Family Medical History: Noncontributory Neurological: Reports: Alzheimers Disease Oncologic: Reports: Other (See Below) Other Oncologic Family History: Father from cancer in bile ducts. - Caffeine Use Caffeine Use: Reports: Soda - Living Situation & Occupation Living situation: Reports: Single, Alone Occupation: Retired ED ROS GENERAL - Review of Systems Review Of Systems: ROS reveals no pertinent complaints other than HPI. ED EXAM, GENERAL - Physical Exam Exam: See Below Exam Limited By: No Limitations General Appearance: Alert, Other (chronically ill appearing) Ears: Hearing Grossly Normal Nose: Normal Inspection, Normal Mucosa, No Blood Throat/Mouth: Normal Oropharynx, Normal Voice, No Airway Compromise, Other (dry oral membranes) Head: Atraumatic, Normocephalic Neck: Normal Inspection, Supple, Non-Tender, Full Range of Motion Respiratory/Chest: No Respiratory Distress, Lungs Clear, No Accessory Muscle Use , Chest Non-Tender, Decreased Breath Sounds Cardiovascular: No JVD, Tachycardia, Irregularly Irregular GI/Abdominal: Normal Bowel Sounds, Soft, Non-Tender (Male) Exam: Deferred Rectal (Males) Exam: Deferred Back Exam: Normal Inspection Extremities: Non-Tender, Pedal Edema Neurological: Alert, Oriented, CN II-XII Intact, Normal Cognition, No Motor/ Sensory Deficits Psychiatric: Anxious Skin Exam: Warm, Dry, Intact, Normal Color, No Rash EKG INTERPRETATION EKG Date: 07/24/17 Time: 18:06 Rhythm: A-Fib Rate (Beats/Min): 110 [place]: LAD-Left [place] Deviation (borderline) P-Wave: Absent QRS: Other (low voltage throughout) ST-T: Normal QT: Prolonged Comparison: Change From Previous EKG Course - Vital Signs Last Recorded V/S: Last Vital Signs Temp 96.8 F 07/24/17 17:57 Pulse 116 H 07/24/17 17:57 Resp 16 07/24/17 17:57 BP 88/60 L 07/24/17 17:57 Pulse Ox 99 07/24/17 17:57 Orthostatic Blood Pressure [ 67/53 Sitting] Orthostatic Blood Pressure [ 87/64 Supine] - Orders/Labs/Meds Orders: Active Orders 24 hr Category Date Time Status EKG 12 Lead [EKG Documentation Completion] [RC] STAT Care 07/24/17 18:16 Active Orthostatic Vital Signs [RC] ASDIRECTED Care 07/24/17 19:36 Active Peripheral IV Care [RC] . DIRECTED Care 07/24/17 18:33 Active Peripheral IV Insertion Adult [OM.PC] Stat Oth 07/24/17 18:32 Ordered Labs: Laboratory Tests 07/24/17 07/24/17 07/24/17 Range/Units 18:40 18:40 18:40 WBC 8.2 (5.0-10.0) 10^3/uL RBC 3.23 L (4.6-6.2) 10^6/uL Hgb 10.3 L D (14.0-18.0) g/dL Hct 29.9 L (40.0-54.0) % MCV 92.6 D (80-100) fL MCH 31.9 (27.0-34.0) pg MCHC 34.4 (33.0-35.0) g/dL Plt Count 167 (150-450) 10^3/uL Neut % (Auto) 70.2 (42.2-75.2) % Lymph % (Auto) 15.1 L (20.5-50.1) % Wilson % (Auto) 12.4 H (2-8) % Eos % (Auto) 1.3 (1.0-3.0) % Baso % (Auto) 1.0 (0.0-1.0) % PT 18.1 H (9.0-12.0) SEC INR 1.8 H (0.9-1.2) APTT 32.6 (22.0-34.0) SEC Sodium 138 (135-145) mmol/L Potassium 3.8 (3.6-5.0) mmol/L Chloride 109 (101-111) mmol/L Carbon Dioxide 21.0 (21.0-31.0) mmol/L Anion Gap 11.8 BUN 17 (7-18) mg/dL Creatinine 1.3 (0.6-1.3) mg/dL Est Cr Clr Drug Dosing 69.33 mL/min Estimated GFR (MDRD) 55 BUN/Creatinine Ratio 13.07 Glucose 139 H (74-105) mg/dL Calcium 8.5 (8.4-10.2) mg/dl Magnesium 1.6 L (1.8-2.5) mg/dL Total Bilirubin 6.0 H (0.2-1.0) mg/dL AST 81 H (10-42) IU/L ALT 47 (10-60) IU/L Alkaline Phosphatase 309 H (42-121) IU/L Ammonia (11-35) umol/L Troponin I 0.03 H* (0.00-0.02) ng/ml B-Natriuretic Peptide 310 H (0-100) pg/ml Total Protein 5.5 L (6.7-8.2) g/dl Albumin 2.1 L (3.2-5.5) g/dl Globulin 3.4 Albumin/Globulin Ratio 0.62 TSH, Ultra Sensitive (0.45-5.33) uIu/mL 07/24/17 07/24/17 Range/Units 18:40 18:40 WBC (5.0-10.0) 10^3/uL RBC (4.6-6.2) 10^6/uL Hgb (14.0-18.0) g/dL Hct (40.0-54.0) % MCV (80-100) fL MCH (27.0-34.0) pg MCHC (33.0-35.0) g/dL Plt Count (150-450) 10^3/uL Neut % (Auto) (42.2-75.2) % Lymph % (Auto) (20.5-50.1) % Wilson % (Auto) (2-8) % Eos % (Auto) (1.0-3.0) % Baso % (Auto) (0.0-1.0) % PT (9.0-12.0) SEC INR (0.9-1.2) APTT (22.0-34.0) SEC Sodium (135-145) mmol/L Potassium (3.6-5.0) mmol/L Chloride (101-111) mmol/L Carbon Dioxide (21.0-31.0) mmol/L Anion Gap BUN (7-18) mg/dL Creatinine (0.6-1.3) mg/dL Est Cr Clr Drug Dosing mL/min Estimated GFR (MDRD) BUN/Creatinine Ratio Glucose (74-105) mg/dL Calcium (8.4-10.2) mg/dl Magnesium (1.8-2.5) mg/dL Total Bilirubin (0.2-1.0) mg/dL AST (10-42) IU/L ALT (10-60) IU/L Alkaline Phosphatase (42-121) IU/L Ammonia 44 H (11-35) umol/L Troponin I (0.00-0.02) ng/ml B-Natriuretic Peptide (0-100) pg/ml Total Protein (6.7-8.2) g/dl Albumin (3.2-5.5) g/dl Globulin Albumin/Globulin Ratio TSH, Ultra Sensitive 2.32 (0.45-5.33) uIu/mL Meds: Medications Discontinued Medications Generic Name Dose Route Start Last Admin Trade Name Freq PRN Reason Stop Dose Admin Sodium Chloride 1,000 mls @ 999 mls/hr 07/24/17 19:55 07/24/17 20:07 Normal Saline IV 07/24/17 20:55 250 mls/hr .BOLUS ONE Administration Sodium Chloride 10 ml 07/24/17 18:33 07/24/17 20:07 Saline Flush FLUSH 10 ml ASDIRECTED PRN Administration Keep Vein Open Departure - Departure Disposition: DC/Tfer to [facility] 02 Clinical Impression: Dizziness, Elevated bilirubin, Orthostatic hypotension Cirrhosis of liver Qualifiers: Hepatic cirrhosis type: alcoholic cirrhosis Ascites presence: with ascites Qualified Code(s): K70.31 - Alcoholic cirrhosis of liver with ascites - Discharge Information Referrals: PCP,None [Primary Care Provider] - Forms: ED Department Discharge - My Orders Last 24 Hours: My Active Orders 07/24/17 19:36 Orthostatic Vital Signs [RC] ASDIRECTED - Assessment/Plan Last 24 Hours: My Active Orders 07/24/17 19:36 Orthostatic Vital Signs [RC] ASDIRECTED <Kika Lobo - Last Filed: 07/25/17 01:38> Course - Re-Assessments/Exams Free Text/Narrative Re-Assessment/Exam: 07/25/17 01:33 Dr ryan Lincoln accepting patient for further evaluation and management, dizziness, orthostatic hypotension. elevated LFT's. Tx stable condition via LRAS. Departure - Departure Time of Disposition: 21:00 Condition: Undetermined I have read and agree with the documentation that has been completed regarding this visit. By signing this record, I attest that the documentation was completed in my physical presence and is an accurate record of the encounter.
[2017-07-24] MEDS: Sodium Chloride 0.9% 1,000 ML IV ONE (20:07)
[2017-07-24] MEDS: Sodium Chloride 0.9% 10 ML Syringe FLUSH PRN (20:07)
== END 2017-07-24 21:17 ==
LOC: DL.ED 17:46
DX: K70.31 Alcoholic cirrhosis of liver with ascites (principal); I95.1 Orthostatic hypotension; R79.89 Other specified abnormal findings of blood chemistry; I10 Essential (primary) hypertension; I48.91 Unspecified atrial fibrillation; E11.9 Type 2 diabetes mellitus without complications; Z88.8 Allergy status to other drugs, medicaments and biological substances; Z88.6 Allergy status to analgesic agent; Z88.5 Allergy status to narcotic agent; Z79.899 Other long term (current) drug therapy; Z79.82 Long term (current) use of aspirin
CPT/HCPCS: 36415; 71045; 80053; 82140; 82272; 83735; 83880; 84443; 84484; 85025; 85610; 85730; 93005; 99285; J7030; J7050